=== PATIENT | female | born 1995 | race Caucasian/White ===

== ENCOUNTER 2019-08-16 15:04 | Outpatient (REF) | payer OTHER, SELFPAY ==
--- NOTE | 2019-08-16 13:30 | PAPFT_PTH ---
PATIENT: Willa Perry LOC: [facility] U#:[id number] AGE/SX: 24/F ROOM: RE08/16/[address]: JANAE Epstein : 1995 BED: DIS: 08/16/2019 SPEC #: [id number] RECD: 08/16/19 16:59 STATUS: KRISTIE REQ #: [id number] KALPESH: 08/16/19 13:[address]: Tita Chandra DEPT: [facility] Cytology RECD BY: Davida Barajas ENTERED: 08/16/19 16:59 SP TYPE: PAPFT SONIA DR: Khushboo Gordon Tissues: 1 - CX/ENDOCX FOR PAP SMEARS Procedures: PAP THIN PREP/[facility] Screening Comments: [id number]
== END 2019-08-16 15:24 ==
LOC: LBN 15:04
PROVIDERS: PCP Physician Assistant Medical; Visit Provider Nurse Practitioner Family
DX: Z12.4 Encounter for screening for malignant neoplasm of cervix (principal)
CPT/HCPCS: 88142

== ENCOUNTER 2021-03-03 15:18 | Outpatient (REF) | payer OTHER, SELFPAY ==
[2021-03-06 15:20] LABS: Source: Kidney
== END 2021-03-03 15:19 | disposition home or self-care (01) ==
LOC: NCHCN 15:18
PROVIDERS: PCP Physician Assistant Medical; Visit Provider Nurse Practitioner Family
DX: N20.0 Calculus of kidney (principal)
CPT/HCPCS: 82365

== ENCOUNTER 2022-10-26 08:53 | Outpatient (CLI) | payer OTHER, SELFPAY | END 2022-10-26 08:54 | disposition home or self-care (01) | LOC: ORDER INT 08:54 | PROVIDERS: PCP Physician Assistant Medical; Visit Provider Advanced Practice Midwife | DX: Z34.90 Encounter for supervision of normal pregnancy, unspecified, unspecified trimester (principal) ==

== ENCOUNTER 2022-11-16 02:23 | Outpatient (CLI) | payer OTHER, SELFPAY ==
[2022-11-16 15:26] LABS: Panorama Kit Sent via Fed Ex
[2022-11-16 15:45] LABS: Abs Immature Grans 0.03 10^3/uL (0.0-0.06); Absolute Basophil Count 0.05 10^3/uL (0.0-0.2); Absolute Eosinophil Count 0.06 10^3/uL (0.0-0.7); Absolute Lymphocyte Count 1.91 10^3/uL (1.2-3.4); Absolute Monocyte Count 0.29 10^3/uL (0.1-0.8); Absolute Neutrophil Count 6.86 10^3/uL (1.2-6.7); Basophils % 0.5; Eosinophils % 0.7; HCT 38.2 % (36.0-46.0); Immature Grans % 0.3; Lymphocytes % 20.8; MCH 30.9 pg (27.0-33.0); MCV 91 fL (80-95); MPV 9.5 fL (8.0-11.0); Monocytes % 3.2; Neutrophils % 74.5; Platelet Count 382 10^3/uL (130-400); RBC 4.21 10^6/uL (3.93-5.22); RDW 11.6 % (11.7-14.6); RDW-SD 38.5 fL
[2022-11-17 09:51] LABS: Hepatitis B Surface Ag Negative (Negative)
[2022-11-17 10:32] LABS: HIV-1/2 Ag & Ab Screen Negative (Negative)
[2022-11-17 10:40] LABS: Hepatitis C Ab w Rflx HCV PCR Negative (Negative)
[2022-11-17 11:05] LABS: Varicella IgG Antibody Negative (See Note)
[2022-11-17 11:10] LABS: Rubella IgG Ab (UVM) Positive (See Note)
[2022-11-18 16:11] LABS: Syphilis IgG w/Reflex Nonreactive (Nonreactive)
[2022-11-22 01:05] LABS: Specimen WB Whole Blood
[2022-11-30 12:30] LABS: Result Summary NEGATIVE; Specimen WB Whole Blood
== END 2022-11-16 02:24 | disposition home or self-care (01) ==
LOC: LBO 02:24
PROVIDERS: PCP Physician Assistant Medical; Visit Provider Advanced Practice Midwife
DX: Z34.91 Encounter for supervision of normal pregnancy, unspecified, first trimester (principal); Z36.89 Encounter for other specified antenatal screening; Z3A.11 11 weeks gestation of pregnancy
CPT/HCPCS: 36415; 81220; 81222; 81329; 86787; 86803; 86850; 86900; 86901; 87340; 87389; 85025; 86762; 86780

== ENCOUNTER 2022-11-16 14:56 | Outpatient (REF) | payer OTHER, SELFPAY ==
--- NOTE | 2022-11-16 14:00 | PAPFT_PTH ---
PATIENT: Willa Perry LOC: [facility] U#:[id number] AGE/SX: 27/F ROOM: RE11/16/[address]: Martina Pradhan CNM : 1995 BED: DIS: 11/16/2022 SPEC #: [id number] RECD: 11/16/22 17:09 STATUS: KRISTIE MONIQUE #: [id number] KALPESH: 11/16/22 14:[address]: Martina Pradhan DEPT: [facility] Cytology RECD BY: Davida Barajas ENTERED: 11/16/22 17:10 SP TYPE: PAPFT OTHR DR: Khushboo Gordon Tissues: 1 - CX/ENDOCX FOR PAP SMEARS Procedures: PAP THIN PREP/[facility] Screening HPV DNA PROBE Comments: [id number] (CHLAMYDIA/GC)
[2022-11-16 17:31] LABS: *AMPHETAMINES SCREEN URINE Negative (Negative); *BARBITURATES SCREEN URINE Negative (Negative); *BENZODIAZEPINES SCREEN URINE Negative (Negative); Cannabinoids THC Negative (Negative); Cocaine Screen,Urine Negative (Negative); METHADONE URINE SCREEN Negative (Negative); OPIATES URINE SCREEN Negative (Negative)
[2022-11-16 17:41] LABS: Tricyclic Antidepressants Negative (Negative)
[2022-11-17 13:43] LABS: Chlamydia Result Negative (Negative); GC Result Negative (Negative)
[2022-11-20 10:26] LABS: Buprenorphine Negative ng/mL (Cutoff: 5.0); Norbuprenorphine Negative ng/mL (Cutoff: 2.5)
== END 2022-11-16 14:57 | disposition home or self-care (01) ==
LOC: LBN 14:56
PROVIDERS: PCP Physician Assistant Medical; Visit Provider Advanced Practice Midwife
DX: Z34.91 Encounter for supervision of normal pregnancy, unspecified, first trimester (principal); Z11.3 Encounter for screening for infections with a predominantly sexual mode of transmission; Z12.4 Encounter for screening for malignant neoplasm of cervix; Z3A.11 11 weeks gestation of pregnancy; Z11.51 Encounter for screening for human papillomavirus (HPV)
CPT/HCPCS: 80307; 80348; 87491; 87591; 88142; 87086; 87624

== ENCOUNTER 2024-03-27 13:53 | Outpatient (REF) | payer OTHER, SELFPAY ==
--- OUTSIDE RECORDS SUMMARY | 2024-03-27 13:56 | XMS_ITS | Continuity of Care Document ---
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 Discharge Disposition: Home or Self Care Attending Physician: Rosy Armenta Referring Physician: Rosy Armenta Allergies, Adverse Reactions, Alerts No Known Medication Allergies Assessment and Plan Future Appointments Appointment Date:03/09/2023 12:00:00 PM Scheduled Provider:Toi Hilton MD Location:[facility] Appointment Type:OB Follow Up Functional Status 02/16/23 Other exposure to Infectious Disease Non e Medications 19 (Nationwide) oral tablet 0 Refill(s) Start Date: 02/15/23 Status: Ordered Vitamin D3 1000 intl units oral capsule 25 mcg = 1 cap, Oral, Daily, # 75 cap, 0 Refill(s) Start Date: 02/15/23 Status: Ordered Problem List Condition Confirmation Course Effective Dates Status Health St atus Informant Acne vulgaris Confirmed Active Back pain Confirmed Active Depression Confirmed Active 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 Dermatitis Confirmed Active DJD (degenerative joint disease) Confirmed Active Confirmed 08/25/22 Active Results Most recent to oldest [Reference Range]: 1 Protein Urine Dipstick Trace (02/16/23 2:17 PM) Glucose Urine Dipstick Negative (02/16/23 2:17 PM) Vital Signs Most recent to oldest [Reference Range]: 1 2 Blood Pressure [90-140/60-90 mmHg] 124/7 0mmHg (02/16/23 2:17 PM) Weight 67.1 kg (02/16/23 2:17 PM) 67.1 kg (02/16/23 2:17 PM) Weight Measured (lbs) 147.93 lb (02/16/23 2:17 PM) [place] Body Weight Calculated 51.476 kg (02/16/23 2:17 PM) Height 159 cm (02/16/23 2:17 PM) Height/Length Measured (inches) 62.6 inc h (02/16/23 2: PM) BSA Measured 1.72 m2 (02/16/23 2:17 PM) Body Mass Index 26.54 kg/m2 (02/16/23 2:17 PM) 26.54 kg/m2 (02/16/23 2:17 PM) Social History Social History Type Response Tobacco Former tobacco user Tobacco Use:. stopped smoking when she found out she was . per day. Sex Note * Deisy Ragsdale: PERFORM Event Display: OB Note Authored Date: [id number] Transcribed Labs Entered On: 02/16/2023 10:06 EDT Performed On: 02/16/2023 10:03 EDT by Deisy Ragsdale Transcribed Labs Blood Type, Transcribed : AB positive Rubella,Transcribed : Immune Rubella Date Performed : 11/17/2022 EST RPR, Transcribed : Negative RPR Date Performed : 11/18/2022 EST Varicella, Transcribed : Negative Varicella Date Performed : 11/17/2022 EST Chlamydia Date Performed : 11/16/2022 EST Gonorrhea Date Performed : 11/16/2022 EST Chlamydia, Transcribed : Negative Gonorrhea, Transcribed : Negative Genetic Testing Date Performed : 12/01/2022 EST Genetic Testing, Transcribed : Yes Genetic Testing, Results Text : Sample collected 13w,5 days. Negative for triploid,monosomy x, trisomy 21,18,and 13. sex female. Deisy Ragsdale - 02/16/2023 10:03 EDT Electronically Signed on 02/16/2023 10:03 AM Deisy Ragsdale * Deisy Ragsdale: PERFORM Event Display: OB Note Authored Date: [id number] Transcribed Labs Entered On: 02/15/2023 17:45 EDT Performed On: 02/15/2023 17:40 EDT by Deisy Ragsdale Transcribed Labs Blood Type, Transcribed : AB positive Rubella,Transcribed : Immune Rubella Date Performed : 11/17/2022 EST RPR, Transcribed : Negative RPR Date Performed : 11/18/2022 EST Varicella, Transcribed : Negative Varicella Date Performed : 11/17/2022 EST Chlamydia Date Performed : 12/03/2022 EST Gonorrhea Date Performed : 12/03/2022 EST Chlamydia, Transcribed : Negative Gonorrhea, Transcribed : Negative Deisy Ragsdale - 02/15/2023 17:40 EDT Electronically Signed on 02/15/2023 05:40 PM Deisy Ragsdale Physician Outpatient Note * Rosy Armenta: PERFORM Event Display: Office Clinic Note Physician Authored Date: [id number] OLIVE SOTELO :1995 Age:27 years Sex:Female Visit Date:02/16/2023 Primary Care Physician: ANGIE JOSEPH PA-C JOEY/EGA Gestational Age (EGA) and JOEY? * Note: EGA calculated as of 02/16/2023 ?? JOEY:??06/03/2023?EGA*:??24 weeks 5 days ?Type:??Authoritative?Method Date:??08/27/2022 ?Method:??Last Menstrual Period??(08/27/2022) ?Confirmation:??Confirmed ?Description:??-- ?Comments:??-- ?Entered by:??Deisy Ragsdale on 02/16/2023? Other JOEY Calculations for this : ?Method:??Ultrasound ?Method Date:??01/11/2023 ?JOEY:??06/03/2023 ?EGA (At Entry):??19 weeks 4 days ?Type:??Non-Authoritative ?Comments:??Performed at [facility] ?Entered by:??Rosy Armenta on 02/16/2023 Chief Complaint OB trnasfer, 24w, 4 days. Pt's only complint is that she is very constipated. sometimes can go as long as 6 days without going. History of Present Illness Patient presents as a??OB transfer. Most of??OB records received. Missing??some labs from PN??panel. ?? Physical Exam Vitals & Measurements BP:??124/70?? HT:??159??cm?? WT:??67.1??kg?? WT:??67.1??kg?? BMI:??26.54?? BMI:??26.54?? BSA:??1.72?? Risk Factors Risk Factors, Antepartum Current Preg: Other: Marginal cord insertion. [facility] recommended growth US at28-30 weeks and 34-36 weeks. (02/16/23) Risk Factors, Antepartum Current Preg: Other: EDS type 3 (02/16/23) Assessment/Plan 1.??Encounter for care in second trimester of first ??Z34.02 Oriented to practice. No lof/bleeding/ctx. Baby is active, having a girl! US at [facility] due to EDS type 3. Marginal cord insertion, inserting at the end of the placenta, at the fundus of uterus. [facility] recommended growth US 28-30 weeks and 34- 36 weeks. Labs at nh. Will call [facility] for PN panel and draw whatever was omitted with glucose/CBC at nh. Ordered: Urine Culture, Urine, Clean Catch, Routine collect, RT - Routine, 02/16/23 14:39:00 EDT, Once, Nurse collect, Encounter for care in second trimester of first ?? 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 Cards Exam and Notes ?? Exams and Notes ?? Date:??02/16/23 EGA:??24w5d Weight (lbs kg):??*147... Fundal Height (cm):??25 ? Blood Pressure (mmHg):??124/70 ? Cervix Exam (Dil cm/Eff %/Sta -):--/--/--?? Labor S/S:??None Urine Glucose:??Negative Urine Protein:??Trace Next Visit:??+3 weeks from 02/16/2023 Baby A?FHR:??155 ? Movement:??Present per patient ?Presentation:??-- ? Problem List/Past Medical History Ongoing Acne vulgaris Back pain Depression Dermatitis DJD (degenerative joint disease) Letitia-Danlos syndrome Historical No qualifying data Medications 19 (Nationwide) oral tablet Vitamin D3 1000 intl units oral capsule, 25 mcg= 1 cap, Oral, Daily Allergies No Known Medication Allergies Social History Alcohol Past, Beer, 1-2 times per month Electronic Cigarette/Vaping Electronic Cigarette Use: Never. 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 Home/Environment Lives with Significant other. Living situation: Home/Independent. Sexual Sexually active: Yes. Substance Use Never Tobacco Former tobacco user Tobacco Use:. stopped smoking when she found out she was . per day. PCM Transcribed Labs Blood Type, Transcribed: AB positive Chlamydia Date Performed: 11/16/22 Chlamydia, Transcribed: Negative Genetic Testing Date Performed: 12/01/22 Genetic Testing, Results Text: Sample collected 13w,5 days. Negative for triploid,monosomyx, trisomy 21,18,and 13. sex female. Genetic Testing, Transcribed: Yes Gonorrhea Date Performed: 11/16/22 Gonorrhea, Transcribed: Negative RPR Date Performed: 11/18/22 RPR, Transcribed: Negative Rubella Date Performed: 11/17/22 Rubella,Transcribed: Immune Electronically Signed on 02/16/23 03:16 PM Rosy Armenta Patient Care team information Care Team Personnel Name: JAKE SORIA, ANGIE Sotelo Position: No Access Member Role: Primary Care Physician Address: Address: [place] [address]- Care Team Related Persons Name: BOGDAN HUIZAR Address: [address] Name: BRITTANY SOTELO Address: [address] Name: BRITTANY SOTELO Address: [address]
--- OUTSIDE RECORDS SUMMARY | 2024-03-27 13:56 | XMS_ITS | Continuity of Care Document ---
Author Name Unknown Organization [facility] Address [address] [place] [address] Care Team Providers Care Carbon Cleaner Name Role Phone ANGIE JOSEPH PA-C Primary Care Physician Encounter [facility] [id number] Date(s): 06/07/23 - 06/07/[address] [address]- Encounter Diagnosis Post-term (Final) - 40 weeks gestation of (Final) - Discharge Disposition: Home or Self Care Attending Physician: Jt Hutchins Admitting Physician: Jt Hutchins Referring Physician: Jt Hutchins Allergies, Adverse Reactions, Alerts No Known Medication Allergies Assessment and Plan Future Scheduled Tests Laboratory* .GTT 3 HR OB 100gm 03/09/23 * .GTT 2 HR OB 100gm 03/09/23 * .GTT 1 HR OB 100gm 03/09/23 * .GTT Fasting OB 03/09/23 Immunizations Given and Recorded Vaccine Date Status Refusal Reason tetanus/diphth/pertuss (Tdap) adult/adol 03/09/23 Given Medications 19 (Nationwide) oral tablet 0 Refill(s) Start Date: 02/15/23 Status: Ordered Vitamin D3 1000 intl units oral capsule 25 mcg = 1 cap, Oral, Daily, # 75 cap, 0 Refill(s) Start Date: 02/15/23 Status: Ordered Problem List Condition Confirmation Course Effective Dates Status Health St atus Informant Acne vulgaris Confirmed Active Marginal insertion of umbilical cord affecting management of mother Confirmed Active Back pain Confirmed Active Depression Confirmed Active 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 Dermatitis Confirmed Active DJD (degenerative joint disease) Confirmed Active Post term Confirmed Active Confirmed 08/25/22 Active Encounter for care of primigravida in third trimester, antepartum Confirmed Active Vital Signs Most recent to oldest [Reference Range]: 1 Temperature Temporal Artery [36-38 Deg C ] 36.4 Deg C (06/07/23 11:21 AM) Temperature Temporal Artery (DegF) [97.3 -100 Deg F] 97.52 Deg F (06/07/23 11:21 AM) Heart Rate Monitored [60-100 bpm] 86 bpm (06/07/23 11:21 AM) Respiratory Rate [12-24 br/min] 16 br/mi n (06/07/23 11:21 AM) Blood Pressure [90-140/60-90 mmHg] 126/8 0mmHg (06/07/23 11:21 AM) Mean Arterial Pressure, Cuff [65-140 mmH g] 95 mmHg (06/07/23 11:21 AM) Blood Pressure Location Right arm (06/07/23 11:21 AM) Blood Pressure Method Automatic (06/07/23 11:21 AM) Social History Social History Type Response Smoking Status Smoking tobacco use: Former tobacco user;Never; Number used per day: stopped smoking when she found out she was .; entered on: 04/21/23 Sex Patient Care team information Care Team Personnel Name: ANGIE JOSEPH PA-C Position: No Access Member Role: Primary Care Physician Address: Address: [address] Care Team Related Persons Name: BOGDAN HUIZAR Address: Home [address] [place] [phone] [facility] Name: BRITTANY SOTELO Address: Home [address] [place] [phone] [facility] Name: BRITTANY SOTELO Address: Home [address] [place] [phone] [facility]
--- OUTSIDE RECORDS SUMMARY | 2024-03-27 13:56 | XMS_ITS | Continuity of Care Document ---
Author Name Unknown Organization [facility] Address [address] [place] [address] Care Team Providers Care Product Marketer Name Role Phone ANGIE JOSEPH PA-C Primary Care Physician Encounter [facility] [place] [id number] Date(s): 05/23/23 - 05/23/23 [facility] [address] [place], [place] [address] Encounter Diagnosis Encounter for care of primigravida in third trimester, antepartum (Discharge Diagnosis) - 05/23/23 Marginal insertion of umbilical cord affecting management of mother(Discharge Diagnosis) - 05/23/23 Letitia-Danlos syndrome(Discharge Diagnosis) - 05/23/23 Discharge Disposition: Home or Self Care Attending Physician: Jt Hutchins Allergies, Adverse Reactions, Alerts No Known Medication Allergies Assessment and Plan Future Appointments Appointment Date:05/30/2023 10:15:00 AM Scheduled Provider:Toi Hilton MD Location:[facility] Appointment Type:OB Follow Up Appointment Date:06/07/2023 10:30:00 AM Scheduled Provider:Jt Hutchins Location: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 Dermatitis Confirmed Active DJD (degenerative joint disease) Confirmed Active Confirmed 08/25/22 Active Encounter for care of primigravida in third trimester, antepartum Confirmed Active Results Most recent to oldest [Reference Range]: 1 Protein Urine Dipstick Negative (05/23/23 10:35 AM) Glucose Urine Dipstick Negative (05/23/23 10:35 AM) Urine Color Urine Dipstick Pale yellow (05/23/23 10:35 AM) Urine Appearance Urine Dipstick Clear (05/23/23 10:35 AM) Vital Signs Most recent to oldest [Reference Range]: 1 2 Blood Pressure [90-140/60-90 mmHg] 126/7 2mmHg (05/23/23 10:35 AM) Weight 80.3 kg (05/23/23 10:35 AM) Weight Measured (lbs) 177.031 lb (05/23/23 10:35 AM) [place] Body Weight Calculated 51.476 kg (05/23/23 10:35 AM) Pre- Weight 58.51 kg (05/23/23 10:35 AM) Cumulative Weight Gain 22 kg (05/23/23 10:35 AM) Height 159 cm (05/23/23 10:35 AM) Height/Length Measured (inches) 62.6 inc h (05/23/23 10:35 AM) BSA Measured 1.88 m2 (05/23/23 10:35 AM) Body Mass Index 31.76 kg/m2 (05/23/23 10:35 AM) 31.76 kg/m2 (05/23/23 10:35 AM) Social History Social History Type Response Smoking Status Smoking tobacco use: Former tobacco user;Never; Number used per day: stopped smoking when she found out she was .; entered on: 04/21/23 Sex Note * Florence Henning: PERFORM Event Display: OB Note Authored Date: [id number] Transcribed Labs Entered On: 05/22/2023 15:59 EDT Performed On: 05/22/2023 15:58 EDT by Florence Henning Transcribed Labs Blood Type, Transcribed : AB positive Rubella,Transcribed : Immune Rubella Date Performed : 11/16/2022 EST Hepatitis B, Transcribed : Negative Hepatitis B Date Performed : 03/09/2023 EDT Pap Smear, Transcribed : Normal Pap Smear Date Performed : 11/16/2022 EST HIV Antibodies, Transcribed : Negative RPR, Transcribed : Negative RPR Date Performed : 11/16/2022 EST Group B Strep, Transcribed : Negative GBS Date Performed : 05/09/2023 EDT Varicella, Transcribed : Negative Varicella Date Performed : 11/16/2022 EST Chlamydia Date Performed : 11/16/2022 EST Gonorrhea Date Performed : 11/16/2022 EST Chlamydia, Transcribed : Negative Gonorrhea, Transcribed : Negative ABS, Transcribed : Negative ABS Date Performed : 11/16/2022 EST 1 Hour Glucose Result : 136 mg/dL 1 Hour Glucose Date Performed : 03/09/2023 EDT Fasting Glucose of 3 Result : 92 mg/dL 3 Hour of 3 Glucose Result : 83 mg/dL 1 Hour of 3 Glucose Result : 128 mg/dL 3 Hour Glucose Date Performed : 03/21/2023 EDT 2 Hour of 3 Glucose Result : 91 mg/dL Other Transcribed Labs : urine culture done 05/03/2023 Genetic Testing Date Performed : 12/01/2022 EST Genetic Testing, Transcribed : Yes Genetic Testing, Results Text : Sample collected 13w,5 days. Negative for triploid,monosomy x, trisomy 21,18,and 13. sex female. Florence Henning - 05/22/2023 15:58 EDT Electronically Signed on 05/22/2023 03:58 PM Florence Henning Physician Outpatient Note * Jt Hutchins P: PERFORM Event Display: Office Clinic Note Physician Authored Date: [id number] OLIVE SOTELO :1995 Age:27 years Sex:Female Visit Date:05/23/2023 Primary Care Physician: ANGIE JOSEPH PA-C JOEY/EGA Gestational Age (EGA) and JOEY? * Note: EGA calculated as of 05/23/2023 ?? JOEY:??06/03/2023?EGA*:??38 weeks 3 days ?Type:??Authoritative?Method Date:??08/27/2022 ?Method:??Last Menstrual Period??(08/27/2022) ?Confirmation:??Confirmed ?Description:??-- ?Comments:??-- ?Entered by:??Deisy Ragsdale on 02/16/2023? Other JOEY Calculations for this : ?Method:??Ultrasound ?Method Date:??04/21/2023 ?JOEY:??06/04/2023 ?EGA (At Entry):??33 weeks 5 days ?Type:??Non-Authoritative ?Comments:??DANNY 10 EFW 2205 grams 32 percentile. Cord insertion 2 cm from placental edge ?Entered by:??Rosy Armenta on 04/21/2023 ?Method:??Ultrasound ?Method Date:??03/21/2023 ?JOEY:??06/02/2023 ?EGA (At Entry):??29 weeks 4 days ?Type:??Non-Authoritative ?Comments:??Vertex, DANNY 10, marginal cord-1.3 cm from placental periphery, 1420 g/38th percentile ?Entered by:??Toi Hilton MD on 03/21/2023 ?Method:??Ultrasound ?Method Date:??01/11/2023 ?JOEY:??06/03/2023 ?EGA (At Entry):??19 weeks 4 days ?Type:??Non-Authoritative ?Comments:??Performed at [facility] ?Entered by:??Rosy Armenta on 02/16/2023 Chief Complaint OB follow appointment, 38.3 weeks, ongoing cramping for previous two days, describes them as periodlike cramps both in lower abdomen/stomach and lower back Physical Exam Vitals & Measurements BP:??126/72?? HT:??159??cm?? WT:??80.3??kg?? BMI:??31.76?? BMI:??31.76?? BSA:??1.88?? Risk Factors Risk Factors, Antepartum Current Preg: Other: velamentous cord (05/16/23) Risk Factors, Antepartum Current Preg: Other: Marginal cord insertion. [facility] recommended growth US at28-30 weeks and 34-36 weeks. 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 ??Increased [place] contractions. ??No loss of fluid or bleeding.?? Reviewed signs of labor and when to call. Cards Exam and Notes ?? Exams and Notes ?? Date:??05/23/23 EGA:??38w3d Weight (lbs kg):??*177... Fundal Height (cm):??37 ? Blood Pressure (mmHg):??126/72 ? Cervix Exam (Dil cm/Eff %/Sta -):--/--/--?? Labor S/S:??None Urine Glucose:??Negative Urine Protein:??Negative Next Visit:??+1 weeks from 05/23/2023 Baby A?FHR:??145 ? Movement:??Present per patient ?Presentation:??Vertex ? Date:??05/16/23 EGA:??37w3d Weight (lbs kg):??*173... Fundal Height (cm):??36 ? Blood Pressure (mmHg):??132/68 ? Cervix Exam (Dil cm/Eff %/Sta -):--/--/--?? Labor S/S:?? Urine Glucose:??Negative Urine Protein:??Negative Next Visit:??+1 weeks from 05/16/2023 Baby A?FHR:??145 ? Movement:??Present per patient ?Presentation:??-- ? Date:??05/09/23 EGA:??36w3d Weight (lbs kg):??*172... Fundal Height (cm):??36 ? Blood Pressure (mmHg):??124/60 ? Cervix Exam (Dil cm/Eff %/Sta -):0/50%/-3?? Labor S/S:??None Urine Glucose:??Negative Urine Protein:??Negative Next Visit:??+1 weeks from 05/09/2023 Baby A?FHR:??147 ? Movement:??Present per patient ?Presentation:??Vertex ? Date:??05/03/23 EGA:??35w4d Weight (lbs kg):??*168... Fundal Height (cm):??35 ? Blood Pressure (mmHg):??116/60 ? Cervix Exam (Dil cm/Eff %/Sta -):--/--/--?? Labor S/S:??None Urine Glucose:??Negative Urine Protein:??Trace Next Visit:??+1 weeks from 05/03/2023 Baby A?FHR:??154 ? Movement:??Present per patient ?Presentation:??Vertex ? Date:??04/21/23 EGA:??33w6d Weight (lbs kg):??*166... Fundal Height (cm):??33 ? Blood Pressure (mmHg):??116/62 ? Cervix Exam (Dil cm/Eff %/Sta -):--/--/--?? Labor S/S:??None Urine Glucose:??Negative Urine Protein:??Negative Next Visit:??+2 weeks from 04/21/2023 Baby A?FHR:??150 ? Movement:??Present per patient ?Presentation:??Vertex ? Date:??04/06/23 EGA:??31w5d Weight (lbs kg):??*160... Fundal Height (cm):??30 ? Blood Pressure (mmHg):??100/60 ? Cervix Exam (Dil cm/Eff %/Sta -):--/--/--?? Labor S/S:??None Urine Glucose:?? Urine Protein:?? Next Visit:??+2 weeks from 04/06/2023 Baby A?FHR:??150 ? Movement:??Present per patient ?Presentation:??-- ? Date:??03/21/23 EGA:??29w3d Weight (lbs kg):??*154... Fundal Height (cm):??29 ? Blood Pressure (mmHg):??110/60 ? Cervix Exam (Dil cm/Eff %/Sta -):--/--/--?? Labor S/S:??None Urine Glucose:??10/12 (100 mg/dl) Urine Protein:??Trace Next Visit:??+2 weeks from 03/21/2023 Baby A?FHR:??140 ? Movement:??Present per patient ?Presentation:??Vertex ? Date:??03/09/23 EGA:??27w5d Weight (lbs kg):??*151... Fundal Height (cm):??28 ? Blood Pressure (mmHg):??124/64 ? Cervix Exam (Dil cm/Eff %/Sta -):--/--/--?? Labor S/S:?? Urine Glucose:??Negative Urine Protein:??Negative Next Visit:??+2 weeks from 03/09/2023 Baby A?FHR:??145 ? Movement:??Present per patient ?Presentation:??-- ? Date:??02/16/23 EGA:??24w5d Weight (lbs kg):??*147... Fundal Height (cm):??25 ? Blood Pressure (mmHg):??124/70 ? Cervix Exam (Dil cm/Eff %/Sta -):--/--/--?? Labor S/S:??None Urine Glucose:??Negative Urine Protein:??Trace Next Visit:??+3 weeks from 02/16/2023 Baby A?FHR:??155 ? Movement:??Present per patient ?Presentation:??-- ? Problem List/Past Medical History Ongoing Acne vulgaris Back pain Depression Dermatitis DJD (degenerative joint disease) Letitia-Danlos syndrome Encounter for care of primigravida in third trimester, antepartum Marginal insertion of umbilical cord affecting management of mother Historical No qualifying data Medications 19 ([employer]) oral tablet Vitamin D3 1000 intl units oral capsule, 25 mcg= 1 cap, Oral, Daily Allergies No Known Medication Allergies Social History Alcohol Past, Beer, 1-2 times per month Electronic Cigarette/Vaping Electronic Cigarette Use: Never. 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 Home/Environment Lives with Significant other. Living situation: Home/Independent. Sexual Sexually active: Yes. Substance Use Never Tobacco Former tobacco user Tobacco Use:. stopped smoking when she found out she was . per day. Never Smokeless Tobacco use:. Family History Alive and well: Mother, Father and Brother. SVT - Supraventricular tachycardia: Brother. Immunizations Vaccine Date Status tetanus/diphth/pertuss (Tdap) adult/adol 03/09/2023 Given PCM Transcribed Labs ABO/Rh Echo: AB POS Blood Type, Transcribed: AB positive Chlamydia Date Performed: 11/16/22 Chlamydia, Transcribed: Negative GBS Date Performed: 05/09/23 Genetic Testing Date Performed: 12/01/22 Genetic Testing, Results Text: Sample collected 13w,5 days. Negative for triploid,monosomyx, trisomy 21,18,and 13. sex female. Genetic Testing, Transcribed: Yes Gonorrhea Date Performed: 11/16/22 Gonorrhea, Transcribed: Negative Group B Strep, Transcribed: Negative Hep Bs Ag: Non Reactive1 Hepatitis B Date Performed: 03/09/23 Hepatitis B, Transcribed: Negative HIV Antibodies, Transcribed: Negative HIV Date Performed: 03/09/23 RPR Date Performed: 11/16/22 RPR, Transcribed: Negative Rubella Date Performed: 11/16/22 Rubella,Transcribed: Immune Electronically Signed on 05/23/23 10:57 AM Jt Hutchins Patient Care team information Care Team Personnel Name: ANGIE JOSEPH PA-C Position: No Access Member Role: Primary Care Physician Address: Address: [address] [address]- Care Team Related Persons Name: SREEDHARGEMA BOGDAN A Address: Home [address] [place] [address] [place] [phone] [facility] Name: BRITTANY SOTELO Address: Home [address] [place], [place] [id number] [facility] Name: BRITTANY SOTELO Address: [address] [place], [place] [id number] [facility]
--- OUTSIDE RECORDS SUMMARY | 2024-03-27 13:56 | XMS_ITS | Continuity of Care Document ---
Author Name Unknown Organization [facility] Address [address] [place] [address] Care Team Providers Care Cardroom Manager Name Role Phone ANGIE JOSEPH PA-C Primary Care Physician Encounter [facility] NBR [phone] Date(s): 07/05/23 - 07/05/23 [facility] [address], [place] [address] Encounter Diagnosis Encounter for visit(Discharge Diagnosis) - 07/05/23 Vacuum-assisted vaginal delivery(Discharge Diagnosis) - 07/05/23 Discharge Disposition: Home or Self Care Attending Physician: Jt Hutchins MD Allergies, Adverse Reactions, Alerts No Known Medication Allergies Assessment and Plan Future Appointments Future Scheduled Tests Laboratory* .GTT 3 HR OB 100gm 03/09/23 * .GTT 2 HR OB 100gm 03/09/23 * .GTT 1 HR OB 100gm 03/09/23 * .GTT Fasting OB 03/09/23 Immunizations Given and Recorded Vaccine Date Status Refusal Reason tetanus/diphth/pertuss (Tdap) adult/adol 03/09/23 Given Medications acetaminophen 325 mg oral tablet 650 mg = 2 tab, Oral, every 4 hr, PRN pain, mild, 0 Refill(s) Start Date: 06/15/23 Status: Ordered ibuprofen 600 mg oral tablet 600 mg = 1 tab, Oral, every 4 hr, PRN pain, mild, 0 Refill(s) Start Date: 06/15/23 Status: Ordered 19 (Nationwide) oral tablet 1 tab, Oral, Daily, 0 Refill(s) Start Date: 02/15/23 Status: Ordered Vitamin D3 1000 intl units oral capsule 25 mcg = 1 cap, Oral, Daily, 0 Refill(s) Start Date: 02/15/23 Status: Ordered Problem List Condition Confirmation Course Effective Dates Status Health St atus Informant Acne vulgaris Confirmed Active Marginal insertion of umbilical cord affecting management of mother Confirmed Active Back pain Confirmed Active Depression Confirmed Active 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 Dermatitis Confirmed Active DJD (degenerative joint disease) Confirmed Active Post term Confirmed Active Encounter for visit Confirmed Active Vacuum-assisted vaginal delivery Confirmed Active Vital Signs Most recent to oldest [Reference Range]: 1 Blood Pressure [90-140/60-90 mmHg] 114/5 8mmHg (07/05/23 2:47 PM) Weight 67.0 kg (07/05/23 2:47 PM) Weight Measured (lbs) 147.71 lb (07/05/23 2:47 PM) Social History Social History Type Response Smoking Status Smoking tobacco use: Former tobacco user;Never; Number used per day: stopped smoking when she found out she was .; entered on: 04/21/23 Sex Hospital Discharge Instructions Follow Up Care 06/20/2023 15:54:22 With:Jt Hutchins MD Address: [address] [place] [id number] When:Within 3 Week(s) Comments:6 weeks?? appointment summary Document * Event Display: Summary Document Authored Date: [id number] OLIVE SOTELO: 1995 Age: 27 Years OLIVE SOTELO: [birth year] Summary (Date of Report: 07/01/23) G 1 P 0 (0,0,0,0) Gestation: [place] LMP (from pt. history): -- JOEY: 06/03/2023 JOEY/EGA Method: Last Menstrual Period EGA: Delivered Gestation info at delivery: Baby A : 41 weeks 4 days OLIVE SOTELO : [birth year] Antepartum Note Date: 06/07/23 11:02 (40 weeks) By: Jt Hutchins MD BPP 05/10 Date: 05/30/23 10:36 (39 weeks) By: Toi Hilton MD Post dates mgmt reviewed Date: 05/16/23 10:22 (37 weeks) By: Toi Hilton MD GBS neg reviewed. Winding back with work. 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) Acne vulgaris (SNOMED CT: 818137505, Onset: --) Backache (SNOMED CT: 253048929, Onset: --) Osteoarthritis (SNOMED CT: 5623666360, Onset: --) 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 [facility] recommended growth US at 28-30 weeks and 34-36 weeks., Other: EDS type 3 Ethnic Screening Self, Baby's father: Genetic Disorders Screening Baby's Father - Negative, Baby's Mother - Negative: Waban's Chorea Baby's Mother - Negative: Maternal Metabolic Disorder, Recurrent Preg Loss/Stillbirth Baby's Mother - Negative, Baby's Father - Negative: Defect, Cystic Fibrosis, Down Syndrome, Hemophilia, Mental Retardation, Muscular Dystrophy, Neural Tube, Sickle Cell Disease, Ash Sachs, Thalassemia, Parish Disease, Congenital Heart Defect OLIVE SOTELO : [birth year] Gestational Age (EGA) and JOEY * Note: EGA calculated as of 07/01/2023 JOEY: 06/03/2023 EGA*: 41 weeks 4 days Type: Authoritative Method Date: 08/27/2022 Method: Last Menstrual Period (08/27/2022) Confirmation: Confirmed Description: -- Comments: -- Entered by: Deisy Ragsdale on 02/16/2023 Other JOEY Calculations for this : Method: Ultrasound Method Date: 04/21/2023 JOEY: 06/04/2023 EGA (At Entry): 33 weeks 5 days Type: Non-Authoritative Comments: DANNY 10 EFW 2205 grams 32 percentile. Cord insertion 2 cm from placental edge Entered by: Rosy Armenta APRN on 04/21/2023 Method: Ultrasound Method Date: 03/21/2023 JOEY: 06/02/2023 EGA (At Entry): 29 weeks 4 days Type: Non-Authoritative Comments: Vertex, DANNY 10, marginal cord-1.3 cm from placental periphery, 1420 g/38th percentile Entered by: Toi Hilton MD on 03/21/2023 Method: Ultrasound Method Date: 01/11/2023 JOEY: 06/03/2023 EGA (At Entry): 19 weeks 4 days Type: Non-Authoritative Comments: Performed at [facility] Entered by: Rosy Armenta APRN on 02/16/2023 OLIVE SOTELO: [birth year] Measurements Pre- Weight: 58.51 kg 06/07/23 (40 weeks) Recent Weight Measured: 80.500 kg (+22) 06/13/23 (41 weeks) Height/Length Measured: 159.000 cm 06/13/23 (41 weeks) Body Mass Index Measured: 31.840 kg/m2 06/13/23 (41 weeks) OLIVE SOTELO: [birth year] Exam and Notes Date EGA FunHt PTL S/S Cervix BP Weight Urine Baby cm Dil Eff(%) Sta mmHg lbs kg Gluc Prot FHR Activity Fet Pres 06/14/23 41w4d -- -- 10 100% +1 138/87 -- -- -- Baby A = 130 *Present pe... -- 06/13/23 41w4d -- -- 9 100% +1 125/58 *177... -- -- Baby A = 135 *Present pe... -- 06/07/23 40w4d 38 None 0 80% -3 126/80 *177... Negative Trace Baby A = 145 *Present pe... Vertex 05/30/23 39w3d 38 -- -- -- -- 134/70 *176... Negative Negative Baby A = 140 -- -- 05/23/23 38w3d 37 None -- -- -- 126/72 *177... Negative Negative Baby A = 145 *Present pe... Vertex 05/16/23 37w3d 36 -- -- -- -- 132/68 *173... Negative Negative Baby A = 145 *Present pe... -- 05/09/23 36w3d 36 None 0 50% -3 124/60 *172... Negative Negative Baby A = 147 *Present pe... Vertex 05/03/23 35w4d 35 None -- -- -- 116/60 *168... Negative Trace Baby A = 154 *Present pe... Vertex 04/21/23 33w6d 33 None -- -- -- 116/62 *166... Negative Negative Baby A = 150 *Present pe... Vertex 04/06/23 31w5d 30 None -- -- -- 100/60 *160... -- -- Baby A = 150 *Present pe... -- 03/21/23 29w3d 29 None -- -- -- 110/60 *154... */... Trace Baby A = 140 *Present pe... Vertex 03/09/23 27w6d 28 -- -- -- -- 124/64 *151... Negative Negative Baby A = 145 *Present pe... -- 02/16/23 24w5d 25 None -- -- -- 124/70 *147... Negative Trace Baby A = 155 *Present pe... -- Next Visit: +1 weeks from 06/07/2023 * Weight 06/13/2023 177.502(lbs) 80.500(kg) 06/07/2023 177.502(lbs) 80.5(kg) 05/30/2023 176.841(lbs) 80.2(kg) 05/23/2023 177.061(lbs) 80.3(kg) 05/16/2023 173.093(lbs) 78.5(kg) 05/09/2023 172.872(lbs) 78.4(kg) 05/03/2023 168.462(lbs) 76.4(kg) 04/21/2023 166.919(lbs) 75.7(kg) 04/06/2023 160.083(lbs) 72.6(kg) 03/21/2023 154.350(lbs) 70.0(kg) 03/09/2023 151.925(lbs) 68.9(kg) 02/16/2023 147.956(lbs) 67.1(kg) * Urine Glucose 03/21/202310/12 (100 mg/dl) * Activity 06/14/2023 Present per patient 06/14/2023 Present per patient 06/14/2023 Present per patient 06/14/2023 Present per patient 06/14/2023 Present per patient 06/14/2023 Present per patient 06/14/2023 Present per patient 06/14/2023 Present per patient 06/14/2023 Present per patient 06/14/2023 Present per patient 06/14/2023 Present per patient 06/14/2023 Present per patient 06/14/2023 Present per patient 06/13/2023 Present per patient 06/13/2023 Present per patient 06/13/2023 Present per patient 06/13/2023 Present per patient 06/13/2023 Present per patient 06/13/2023 Present per patient 06/13/2023 Present per patient 06/13/2023 Present per patient 06/13/2023 Present per patient 06/13/2023 Present per patient 06/13/2023 Present per patient 06/13/2023 Present per patient 06/13/2023 Present per patient 06/13/2023 Present per patient 06/13/2023 Present per patient 06/13/2023 Present per patient 06/13/2023 Present per patient 06/13/2023 Present per patient 06/07/2023 Present per patient 06/07/2023 Present per patient 05/23/2023 Present per patient 05/16/2023 Present per patient 05/09/2023 Present per patient 05/03/2023 Present per patient 04/21/2023 Present per patient 04/06/2023 Present per patient 03/21/2023 Present per patient 03/09/2023 Present per patient 02/16/2023 Present per patient OLIVE SOTELO : [birth year] Physical Exams Physical Exam Mental Status Level of Consciousness: Alert (06/15/23) Orientation Assessment: Oriented x 4 (06/15/23) Affect/Behavior: Appropriate, Calm, Cooperative (06/14/23) Distress: None (06/13/23) HEENT Mouth: Mouth appears normal (06/15/23) Throat: Throat appears normal (06/14/23) Cardiovascular Cardiovascular Symptoms: None (06/15/23) Nail Bed Color: Normal for ethnicity (06/15/23) Capillary Refill: 2 seconds or less (06/15/23) Skin Temperature, Upper Extremities: Warm (06/15/23) Skin Temperature, Lower Extremities: Warm (06/15/23) Heart Rhythm: Regular (06/15/23) Respiratory Respiratory Symptoms: None (06/15/23) Respirations: Unlabored, Quiet (06/15/23) Respiratory Pattern: Regular (06/15/23) Chest Motion: Symmetrical (06/14/23) Oxygen Therapy: Room air (06/15/23) SpO2: 97 % (06/13/23) Cough: None (06/15/23) Gastrointestinal GI Symptoms: None (06/15/23) Abdomen Description: Asymmetric (06/14/23) Abdomen Palpation: Non-Tender, Soft (06/15/23) Extremities Clonus: Not present (06/13/23) Edema Edema: Lower Extremities (06/13/23) Pretibial Bilateral Pretibial Edema: 1+ Trace (06/13/23) Ankle Bilateral Ankle Edema: 1+ Trace (06/13/23) Pedal Bilateral Pedal Edema: 1+ Trace (06/13/23) Reflexes Left Arm Reflex: 2+ (06/13/23) Right Arm Reflex: 2+ (06/13/23) Left Knee Reflex: 2+ (06/13/23) Right Knee Reflex: 2+ (06/13/23) Integumentary Skin Color General: Usual for ethnicity (06/15/23) Skin Color: Normal for ethnicity (06/14/23) Skin Description: [place] (06/13/23) Skin Temperature: Warm (06/15/23) Skin Turgor: Elastic (06/15/23) Skin Moisture General: Dry (06/15/23) Skin Integrity: Intact, no abnormalities (06/14/23) Mucous Membrane Color: [place] (06/15/23) Mucous Membrane Description: Moist, Intact (06/15/23) OLIVE SOTELO: [birth year] Blood Types and Anti-D Immune Globulin Blood Type and Screen Mother ABO/Rh: -- Mother Antibody Screen: -- Father of Baby ABO/Rh: -- Father of Baby Antibody Screen: -- Anti-D Immune Globulin Rho(D) Initial Status: -- Rho(D) 28 Week Status: -- Rho(D) Dates Given: -- OLIVE SOTELO : [birth year] Tests and Lab Results Results ending with 'TR' have been keyed in by the practice or interpreted manually. Result Date: Estimated weeks post onset will display next to actual result date. Test Result Date Ref Range Protein Urine Dipstick Trace 02/16/23 (24 weeks) Glucose Urine Dipstick Negative 02/16/23 (24 weeks) Urine Color Urine Dipstick Yellow 03/09/23 (27 weeks) Protein Urine Dipstick Negative 03/09/23 (27 weeks) Urine Appearance Urine Dipstick Clear 03/09/23 (27 weeks) Glucose Urine Dipstick Negative 03/09/23 (27 weeks) Platelets 275 K/mcL 03/09/23 (27 weeks) (130 - 400) MPV 9.4 fL 03/09/23 (27 weeks) (7.4 - 10.4) Slide Review Not Indicated 03/09/23 (27 weeks) Hgb (L) 11.4 g/dL 03/09/23 (27 weeks) (12.0 - 16.0) Hct (L) 34.9 % 03/09/23 (27 weeks) (37.0 - 47.0) MCV 95.1 fL 03/09/23 (27 weeks) (81.0 - 99.0) WBC 9.0 K/mcL 03/09/23 (27 weeks) (4.8 - 10.8) RBC (L) 3.67 Million/mcL 03/09/23 ( weeks) (4.20 - 5.40) RDW-CV 12.8 % 03/09/23 ( weeks) (11.5 - 14.5) MCHC 32.7 g/dL 03/09/23 ( weeks) (32.0 - 36.0) MCH (H) 31.1 pg 03/09/23 ( weeks) (27.0 - 31.0) Baso Absolute 0.0 K/mcL 03/09/23 ( weeks) (0.0 - 0.2) Basophil Auto 0.3 % 03/09/23 ( weeks) (0.0 - 0.8) [place] Auto 4.1 % 03/09/23 ( weeks) (1.7 - 9.3) Lymph Auto 21.8 % 03/09/23 ( weeks) (20.5 - 51.1) Neutro Auto 72.7 % 03/09/23 ( weeks) (42.2 - 75.2) Lymph Absolute 2.0 K/mcL 03/09/23 ( weeks) (1.2 - 3.4) Imm Gran Auto 0.3 % 03/09/23 ( weeks) (0.0 - 0.5) Imm Gran Absolute (N) 0.03 03/09/23 ( weeks) Eos, Auto 0.80 % 03/09/23 ( weeks) (0.00 - 3.00) Eos Absolute 0.1 K/mcL 03/09/23 ( weeks) (0.0 - 0.2) Neutro Absolute 6.5 K/mcL 03/09/23 ( weeks) (1.4 - 6.5) [place] Absolute 0.4 K/mcL 03/09/23 ( weeks) (0.1 - 0.6) Gluc 1hr OB (N) 136 03/09/23 (27 weeks) ABO/Rh Echo (U) AB POS 03/09/23 (27 weeks) Hep Bs Ag Non Reactive 03/09/23 (27 weeks) Non Reactive HIV 1/2 Ag/Ab Combo by CMIA Non Reactive 03/09/23 (27 weeks) Non Reactive Test Result Date Ref Range Gluc Fasting OB 92 03/21/23 (29 weeks) <=95 Gluc 1 Hr OB 100gm 128 03/21/23 (29 weeks) <=180 Gluc 2 Hr OB 100gm 91 03/21/23 (29 weeks) <=155 Gluc 3 Hr OB 100gm 83 03/21/23 (29 weeks) <=140 Protein Urine Dipstick Trace 03/21/23 (29 weeks) Glucose Urine Dipstick 1/10 (100 mg/dl) 03/21/23 (29 weeks) Urine Appearance Urine Dipstick Clear 04/21/23 (33 weeks) Urine Color Urine Dipstick Pale yellow 04/21/23 (33 weeks) Protein Urine Dipstick Negative 04/21/23 (33 weeks) Glucose Urine Dipstick Negative 04/21/23 (33 weeks) Leukocytes Urine Dipstick Trace 05/03/23 (35 weeks) Nitrite Urine Dipstick Negative 05/03/23 (35 weeks) Urobilinogen Urine Dipstick 0.2 mg/dl 05/03/23 (35 weeks) Protein Urine Dipstick Trace 05/03/23 (35 weeks) pH Urine Dipstick 8 05/03/23 (35 weeks) Blood Urine Dipstick Negative 05/03/23 (35 weeks) Specific [place] Urine Dipstick 1.010 05/03/23 (35 weeks) Ketones Urine Dipstick Negative 05/03/23 (35 weeks) Bilirubin Urine Dipstick Negative 05/03/23 (35 weeks) Glucose Urine Dipstick Negative 05/03/23 (35 weeks) Urine Color Urine Dipstick Yellow 05/03/23 (35 weeks) Urine Appearance Urine Dipstick Clear 05/03/23 (35 weeks) Protein Urine Dipstick Negative 05/09/23 (36 weeks) Urine Appearance Urine Dipstick Clear 05/09/23 (36 weeks) Urine Color Urine Dipstick Yellow 05/09/23 (36 weeks) Glucose Urine Dipstick Negative 05/09/23 (36 weeks) Group B Strep (GeneXpert) Negative 05/09/23 (36 weeks) Negative Protein Urine Dipstick Negative 05/16/23 (37 weeks) Urine Appearance Urine Dipstick Clear 05/16/23 (37 weeks) Urine Color Urine Dipstick Yellow 05/16/23 (37 weeks) Glucose Urine Dipstick Negative 05/16/23 (37 weeks) Urine Appearance Urine Dipstick Clear 05/23/23 (38 weeks) Glucose Urine Dipstick Negative 05/23/23 (38 weeks) Urine Color Urine Dipstick Pale yellow 05/23/23 (38 weeks) Protein Urine Dipstick Negative 05/23/23 (38 weeks) Glucose Urine Dipstick Negative 05/30/23 (39 weeks) Urine Color Urine Dipstick Yellow 05/30/23 (39 weeks) Protein Urine Dipstick Negative 05/30/23 (39 weeks) Urine Appearance Urine Dipstick Clear 05/30/23 (39 weeks) Urine Appearance Urine Dipstick Clear 06/07/23 (40 weeks) Protein Urine Dipstick Trace 06/07/23 (40 weeks) Glucose Urine Dipstick Negative 06/07/23 (40 weeks) Urine Color Urine Dipstick Yellow 06/07/23 (40 weeks) WBC (H) 14.6 K/mcL 06/13/23 (41 weeks) (4.8 - 10.8) RBC (L) 4.03 Million/mcL 06/13/23 (41 weeks) (4.20 - 5.40) RDW-CV (H) 14.7 % 06/13/23 (41 weeks) (11.5 - 14.5) Platelets 314 K/mcL 06/13/23 (41 weeks) (130 - 400) MPV 10.0 fL 06/13/23 (41 weeks) (7.4 - 10.4) Hgb (L) 11.8 g/dL 06/13/23 (41 weeks) (12.0 - 16.0) MCH 29.3 pg 06/13/23 (41 weeks) (27.0 - 31.0) Hct (L) 35.6 % 06/13/23 (41 weeks) (37.0 - 47.0) MCHC 33.1 g/dL 06/13/23 (41 weeks) (32.0 - 36.0) MCV 88.3 fL 06/13/23 (41 weeks) (81.0 - 99.0) [place] Absolute 0.6 K/mcL 06/13/23 (41 weeks) (0.1 - 0.6) Eos Absolute 0.0 K/mcL 06/13/23 (41 weeks) (0.0 - 0.2) Neutro Absolute (H) 11.9 K/mcL 06/13/23 (41 weeks) (1.4 - 6.5) Imm Gran Absolute (N) 0.07 06/13/23 (41 weeks) Lymph Absolute 1.9 K/mcL 06/13/23 (41 weeks) (1.2 - 3.4) Neutro Auto (H) 81.5 % 06/13/23 (41 weeks) (42.2 - 75.2) Eos, Auto 0.30 % 06/13/23 (41 weeks) (0.00 - 3.00) Baso Absolute 0.0 K/mcL 06/13/23 (41 weeks) (0.0 - 0.2) Basophil Auto 0.3 % 06/13/23 (41 weeks) (0.0 - 0.8) [place] Auto 4.2 % 06/13/23 (41 weeks) (1.7 - 9.3) Lymph Auto (L) 13.2 % 06/13/23 (41 weeks) (20.5 - 51.1) Imm Gran Auto 0.5 % 06/13/23 (41 weeks) (0.0 - 0.5) OLIVE SOTELO: [birth year] Actions No Actions have been documented. OLIVE SOTELO DOB: [birth year] Situational Awareness No comments have been documented. OLIVE SOTELO DOB: [birth year] Allergies (Active and Proposed Allergies Only) No Known Medication Allergies (Severity: Unknown severity, Onset: Unknown) OLIVE SOTELO DOB: [birth year] Medications Prescriptions and Home Medications Currently Active or Taking acetaminophen 325 mg oral tablet (Historically recorded) SI mg = 2 tab, Oral, every 4 hr, PRN: pain, mild, 0 Refill(s) Ordered: 06/15/23 Provider: Jt Hutchins MD ibuprofen 600 mg oral tablet (Historically recorded) SI mg = 1 tab, Oral, every 4 hr, PRN: pain, mild, 0 Refill(s) Ordered: 06/15/23 Provider: Jt Hutchins MD 19 (Nationwide) oral tablet (Historically recorded) SI tab, Oral, Daily, 0 Refill(s) Ordered: 02/15/23 Provider: -- Vitamin D3 1000 intl units oral capsule (Historically recorded) SI mcg = 1 cap, Oral, Daily, 0 Refill(s) Ordered: 02/15/23 Provider: -- Inactive or Suspended (Prescriptions and documented medications since 05/25/22) No medications have been recorded Medication Administrations In-Office/Hospital (All in-office/hospital administrated medications ordered since 05/25/22) acetaminophen 650 mg = 2 tab, N/A, Once Status: Completed Ordered: 06/14/23 Provider: Bita Generated acetaminophen (Acetaminophen 325 mg Tab [LTTL]) 650 mg = 2 tab, Oral, Once Status: Completed Ordered: 06/14/23 Provider: Jt Hutchins MD Adacel (Tdap) (tetanus/diphth/pertuss (Tdap) adult/adol) 0.5 mL, IM, Once Status: Completed Ordered: 03/09/23 Provider: Toi Hilton MD benzocaine-menthol topical 1 lillian, N/A, Once Status: Completed Ordered: 06/14/23 Provider: Bita Generated ibuprofen (Ibuprofen 600 mg Tab [LTTL]) 600 mg = 1 tab, Oral, Once Status: Completed Ordered: 06/14/23 Provider: Jt Hutchins MD ibuprofen 600 mg = 1 tab, N/A, Once Status: Completed Ordered: 06/14/23 Provider: Bita Generated lidocaine (Lidocaine 1% Inj 20 ml Vial [LTTL]) 20 mL, Subcutaneous, Once Status: Completed Ordered: 06/14/23 Provider: Jt Hutchins MD miSOPROStol (miSOPROStol 200 mcg Tab [LTTL]) 200 mcg = 1 tab, OK, Once Status: Completed Ordered: 06/14/23 Provider: Jt Hutchins MD miSOPROStol 1,000 mcg = 5 tab, N/A, Once Status: Completed Ordered: 06/13/23 Provider: Bita Generated oxytocin (oxytocin 10 units/mL Inj 1ml Vial [LTTL]) 10 units = 1 mL, IM, Once Status: Completed Ordered: 06/14/23 Provider: Jt Hutchins MD oxytocin 10 units = 1 mL, N/A, Once Status: Completed Ordered: 06/13/23 Provider: DomainUser, Generated oxytocin 10 units = 1 mL, N/A, Once Status: Completed Ordered: 06/14/23 Provider: DomainUser, Generated ropivacaine 0.2% (ropivacaine) 200 mg = 100 mL, N/A, Once Status: Completed Ordered: 06/13/23 Provider: DomainUser, Generated tranexamic acid 1,000 mg = 10 mL, 330 mL/hr, IV Piggyback, Once Status: Completed Ordered: 06/14/23 Provider: Jt Hutchins MD tranexamic acid 1,000 mg = 100 mL, N/A, Once Status: Completed Ordered: 06/14/23 Provider: GallitoUser, Generated naloxone (Naloxone 0.4 mg/mL Inj 1ml Vial [LTTL]) 0.1 mg = 0.25 mL, IV Push, every 5 min, PRN: other (see comment) Status: Voided Ordered: 06/14/23 Provider: Jt Hutchins MD acetaminophen (Acetaminophen 325 mg Tab [LTTL]) 650 mg = 2 tab, Oral, every 4 hr, PRN: pain, mild Status: Discontinued Ordered: 06/14/23 Provider: Jt Hutchins MD ePHEDrine 50 mg/mL injectable solution (ePHEDrine 50 mg/mL Inj Ana [LTTL]) 5 mg = 0.1 mL, IV Push, every 5 min, PRN: other (see comment) Status: Discontinued Ordered: 06/13/23 Provider: Brendon Bridges ibuprofen (Ibuprofen 600 mg Tab [LTTL]) 600 mg = 1 tab, Oral, every 4 hr, PRN: pain, mild Status: Discontinued Ordered: 06/14/23 Provider: Jt Hutchins MD miSOPROStol (miSOPROStol 25 mcg (Quarter) Tab [LTTL]) 25 mcg = 0.25 tab, VAG, every 3 hr, PRN: other (see comment) Status: Discontinued Ordered: 06/13/23 Provider: Jt Hutchins MD miSOPROStol (miSOPROStol 50 mcg (Half) Tab [LTTL]) 50 mcg = 0.5 tab, VAG, every 3 hr, PRN: other (see comment) Status: Discontinued Ordered: 06/13/23 Provider: Jt Hutchins MD oxytocin IV additive 30 units + LR Diluent 500 mL (oxytocin 30 units + Lactated Ringers 500 mL) Titrate Per Protocol, IV Status: Discontinued Ordered: 06/13/23 Provider: Jt Hutchins MD phenylephrine 100 mcg/mL intravenous solution (Phenylephrine 0.1 mg/mL Inj Syringe 10 mL [LTTL]) 100 mcg = 1 mL, IV Push, every 5 min, PRN: other (see comment) Status: Discontinued Ordered: 06/13/23 Provider: Brendon Bridges ropivacaine 0.2% IV additive 200 mg + Premix Diluent 100 mL (ropivacaine 0.2% 200 mg + Premix Diluent 100 mL) 10 mL/hr, Epidural Status: Discontinued Ordered: 06/13/23 Provider: Brendon Bridges OLIVE SOTELO: [birth year] Immunizations tetanus/diphth/pertuss (Tdap) adult/adol 03/09/23 (25 weeks) OLIVE SOTELO: [birth year] Menstrual History Last Recorded Menstrual Period: -- Last Menstrual Period Description: -- Menarche Onset: -- Menarche Frequency: -- Menarche Length: -- Date of Menses Prior to LMP: -- On Hormonal Contracept within 2 months of LMP: -- Date of Home Test: -- Comments: -- OLIVE SOTELO : [birth year] History (0,0,0,0) No previous pregnancies history have been recorded OLIVE SOTELO : [birth year] Medical History Past Medical History No active past medical history has been recorded Family History Father (Kemar, Alive, Age: 53 Years) Alive and well Mother (Baylee, Alive, Age: 52 Years) Alive and well Brother (Alonso, Alive, Age: 27 Years) Alive and well SVT - Supraventricular tachycardia Procedure or Surgical History Drainage of Amniotic Fluid, Therapeutic from Products of Conception, Via Natural or Artificial Opening Age: 27 Years Date: 06/13/2023 Extraction of Products of Conception, Vacuum, Via Natural or Artificial Opening Age: 27 Years Date: 06/13/2023 Introduction of Hormone into Female Reproductive, Via Natural or Artificial Opening Age: 27 Years Date: 06/13/2023 Monitoring of Products of Conception, Cardiac Rate, External Approach Age: 27 Years Date: 06/13/2023 Repair Perineum Muscle, Open Approach Age: 27 Years Date: 06/13/2023 OLIVE SOTELO: 89 Social & Psychosocial History Social History Alcohol Past, Beer, 1-2 times per month Employment/School 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 Home/Environment Lives with Significant other. Living situation: Home/Independent. Sexual Sexually active: Yes. Substance Abuse Never Tobacco Former tobacco user Tobacco Use:. stopped smoking when she found out she was . per day. Never Smokeless Tobacco use:. Electronic Cigarette/Vaping Electronic Cigarette Use: Never. Psychosocial History No active psychosocial history has been recorded OLIVE SOTELO: [birth year] Infection History Infection history negative or not recorded OLIVE SOTELO DOB: [birth year] Anesthesia and Transfusions Prior Anesthesia or Transfusion Received: No prior anesthesia, No prior transfusion Prior Anesthesia Reaction(s): -- Prior Transfusion Reaction(s): -- Blood Transfusion Acceptable to Patient: -- OLIVE SOTELO DOB: [birth year] Plan and Patient Requests Desired Delivery Location: -- Education: -- Written Plan: -- Written Plan Location: -- Support Person/As400 Operator Relationship to Pt: -- Oral Intake OB: -- Labor Preferences: -- Non-Medicinal Pain Relief: -- Anesthesia/Pain Medication During Labor: -- Delivery Plan: -- Infant Feeding: -- Circumcision: -- Baby For Adoption: -- Patient Requests: -- Father of the Baby's Name: -- Meat Team Member Selected: -- Surrogate : -- Support Person's Name: -- OLIVE SOTELO : 89 Education Educational Materials/Leaflets Provided Title/Topic Date Provided Arnav [facility] - Vaginal or Delivery Post Discharge Instructions 06/15/23 OLIVE SOTELO : 89 Registration and Information Race: White Ethnicity: Not , , or Citizen Of The [place] Origin Marital Status: Single Language(s): Maldivian Confucianist Preference(s): None/No Preference Occupation/Education: Address, Phone, and Health Plans Home Address: [address] [place] [phone] Phone: --, , -- Health Plans: 1 - SELF PAY Member/Group: -- Deductible: $ -- Type: Self Pay Address: [address] [address], [place] [address] Phone: -- 2 - [employer] Member/Group: [id number] Deductible: $ -- Type: Commercial Address: [address] [address], [place], [place] [id number] 3 - [facility] Member/Group: [id number] Deductible: $ -- Type: Commercial Address: [address] [address], [place], [place] [id number] 4 - SELF PAY Member/Group: -- Deductible: $ -- Type: Self Pay Address: [address] [address], [place] [address] Phone: -- General Information OB Provider(s) Information: Not explicitly recorded. May be noted in encounter section below. See below for detailed information for all visits and information. Delivery Center/Hospital Information: -- Provider Information: -- Referring Provider Information: ANGIE JOSEPH PA-C Primary Provider Information: ANGIE JOSEPH PA-C /Partner Information: -- -- Support Person Information: -- Planned/Unplanned : -- Date Consent Signed for Tubal Ligation: -- Date Record Sent to Hospital: -- OLIVE SOTELO : 89 Visits and Encounters (Known encounters since 08/25/2022. May include lab encounters.) Date Location Provider Type Medical Service 07/28/2023 [facility] Jt Hutchins MD Clinic [facility] 07/05/2023 [facility] Jt Hutchins MD Clinic [facility] 06/13/2023 Nadine Hutchins MD Inpatient Inpatient 06/07/2023 A Jt Hutchins MD Outpatient NST 06/07/2023 T1 Jt Hutchins MD Clinic Clinic 05/30/2023 2 Toi Hilton MD Clinic Clinic 05/23/2023 T1 Jt Hutchins MD Clinic Clinic 05/16/2023 1 Toi Hilton MD Clinic Clinic 05/09/2023 [facility] Jt Hutchins, Outpatient Lab 05/09/2023 [facility]- Jt Hutchins MD Clinic Clinic 05/03/2023 [facility] Jt Hutchins MD Outpatient Lab 05/03/2023 5 Jt Hutchins MD Clinic Clinic 04/21/2023 [facility]Diagnost[facility]G Jose Curry MD Outpatient 04/21/2023 2 Rosy Armenta, PIERCING ARTIST Clinic Clinic 04/18/2023 [facility]- -- Clinic [facility] 04/06/2023 [facility]-ENT -- Between Visit -- 04/06/2023 4 Jose Curry MD Clinic Clinic 03/21/2023 2 Rosy Armenta, [facility] Clinic Clinic 03/21/2023 [facility] Toi Hilton MD Outpatient 03/21/2023 [facility]Lab Rosy Armneta, [facility] Outpatient Lab 03/09/2023 [facility]- -- Between Visit -- 03/09/2023 [facility]- -- Between Visit -- 03/09/2023 [facility] Rosy Armenta, [facility] Outpatient Lab 03/09/2023 1 Toi Hilton MD Clinic Clinic 03/09/2023 [facility]- -- Between Visit -- 02/16/2023 [facility] Rosy Armenta, [facility] Outpatient Lab 02/16/2023 3 Rosy Armenta, [facility] OLIVE SOTELO : [birth year] Visit / Encounter Location Information The following information represents known location and contact information for locations visitedduring [facility] Ambulatory Clinics Business Address: [address] [place] [address] Phone:[phone] (Cytosorbents) [facility] Business Address: [address] [place] [address] Phone: No phone numbers found on file for location OLIVE SOTELO : [birth year] Visit Diagnosis (Note: All diagnoses documented since 08/25/2022) 06/13/23 - 41 weeks gestation of (ICD-10-CM: Z3A.41, Date: ) 06/13/23 - Velamentous insertion of umbilical cord, third trimester (ICD-10-CM: O43.123, Date: ) 06/13/23 - Second degree perineal laceration during delivery (ICD-10-CM: O70.1, Date: ) 06/13/23 - Other specified complications of labor and delivery (ICD-10-CM: O75.89, Date: ) 06/13/23 - Single live (ICD-10-CM: Z37.0, Date: ) 06/13/23 - Letitia-Danlos syndrome, 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, Date: ) 06/13/23 - Post-term (ICD-10-CM: O48.0, Date: ) 06/13/23 - Encounter for supervision of normal , unspecified, third trimester (ICD-10-CM: Z34.93, Date: ) 06/13/23 - Maternal exhaustion complicating labor and delivery (ICD-10-CM: O75.81, Date: ) 06/13/23 - Personal history of nicotine dependence (ICD-10-CM: Z87.891, Date: ) 06/13/23 - Malformation of placenta, unspecified, third trimester (ICD-10-CM: O43.103, Date: 06/13/23) 06/13/23 - Outcome of delivery, unspecified (ICD-10-CM: Z37.9, Date: 06/14/23) 06/13/23 - Post-term (ICD-10-CM: O48.0, Date: 06/13/23) 06/13/23 - Letitia-Danlos syndrome, 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, Date: 06/13/23) 06/07/23 - Post-term (ICD-10-CM: O48.0, Date: 06/07/23) 06/07/23 - Letitia-Danlos syndrome, 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, Date: 06/09/23) 06/07/23 - Malformation of placenta, unspecified, third trimester (ICD-10-CM: O43.103, Date: 06/09/23) 06/07/23 - Post-term (ICD-10-CM: O48.0, Date: ) 06/07/23 - 40 weeks gestation of (ICD-10-CM: Z3A.40, Date: ) 06/07/23 - Post-term (ICD-10-CM: O48.0, Date: ) 06/07/23 - Post-term (ICD-10-CM: O48.0, Date: ) 06/07/23 - Post-term (ICD-10-CM: O48.0, Date: 06/07/23) 06/07/23 - Malformation of placenta, unspecified, third trimester (ICD-10-CM: O43.103, Date: 06/07/23) 06/07/23 - Letitia-Danlos syndrome, 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, Date: 06/07/23) 06/07/23 - Encounter for supervision of normal first , third trimester (ICD-10-CM: Z34.03,Date: 06/07/23) 05/30/23 - Encounter for supervision of normal first , third trimester (ICD-10-CM: Z34.03,Date: 05/30/23) 05/23/23 - Letitia-Danlos syndrome, 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, Date: 05/23/23) 05/23/23 - Other malformation of placenta, unspecified trimester (ICD-10-CM: O43.199, Date: 05/23/23) 05/23/23 - Encounter for supervision of normal first , third trimester (ICD-10-CM: Z34.03,Date: 05/23/23) 05/16/23 - Encounter for supervision of normal first , third trimester (ICD-10-CM: Z34.03,Date: 05/16/23) 05/09/23 - Encounter for supervision of normal first , third trimester (ICD-10-CM: Z34.03,Date: ) 05/09/23 - Encounter for supervision of normal first , third trimester (ICD-10-CM: Z34.03,Date: ) 05/09/23 - Encounter for supervision of normal first , third trimester (ICD-10-CM: Z34.03,Date: 05/09/23) 05/09/23 - Other malformation of placenta, unspecified trimester (ICD-10-CM: O43.199, Date: 05/09/23) 05/09/23 - Encounter for supervision of normal first , third trimester (ICD-10-CM: Z34.03,Date: 05/09/23) 05/03/23 - Encounter for supervision of normal first , third trimester (ICD-10-CM: Z34.03,Date: ) 05/03/23 - Encounter for supervision of normal first , third trimester (ICD-10-CM: Z34.03,Date: ) 05/03/23 - Encounter for supervision of normal first , third trimester (ICD-10-CM: Z34.03,Date: 05/03/23) 05/03/23 - Other malformation of placenta, third trimester (ICD-10-CM: O43.193, Date: ) 05/03/23 - 35 weeks gestation of (ICD-10-CM: Z3A.35, Date: ) 05/03/23 - Letitia-Danlos syndrome, 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, Date: ) 05/03/23 - Letitia-Danlos syndrome, 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, Date: 05/03/23) 05/03/23 - Other malformation of placenta, unspecified trimester (ICD-10-CM: O43.199, Date: 05/03/23) 05/03/23 - Encounter for supervision of normal first , third trimester (ICD-10-CM: Z34.03,Date: 05/03/23) 04/21/23 - Other malformation of placenta, unspecified trimester (ICD-10-CM: O43.199, Date: ) 04/21/23 - Other malformation of placenta, unspecified trimester (ICD-10-CM: O43.199, Date: ) 04/21/23 - Other malformation of placenta, unspecified trimester (ICD-10-CM: O43.199, Date: ) 04/21/23 - Other malformation of placenta, third trimester (ICD-10-CM: O43.193, Date: ) 04/21/23 - 33 weeks gestation of (ICD-10-CM: Z3A.33, Date: ) 04/21/23 - Other malformation of placenta, unspecified trimester (ICD-10-CM: O43.199, Date: 04/21/23) 04/21/23 - Encounter for supervision of normal first , third trimester (ICD-10-CM: Z34.03,Date: 04/21/23) 04/06/23 - Other malformation of placenta, third trimester (ICD-10-CM: O43.193, Date: ) 04/06/23 - 31 weeks gestation of (ICD-10-CM: Z3A.31, Date: ) 04/06/23 - Other malformation of placenta, unspecified trimester (ICD-10-CM: O43.199, Date: 04/06/23) 03/21/23 - Encounter for supervision of normal first , third trimester (ICD-10-CM: Z34.03,Date: ) 03/21/23 - 29 weeks gestation of (ICD-10-CM: Z3A.29, Date: ) 03/21/23 - Other malformation of placenta, unspecified trimester (ICD-10-CM: O43.199, Date: 03/21/23) 03/21/23 - Encounter for supervision of normal first , third trimester (ICD-10-CM: Z34.03,Date: 03/21/23) 03/21/23 - Other malformation of placenta, unspecified trimester (ICD-10-CM: O43.199, Date: ) 03/21/23 - Other malformation of placenta, unspecified trimester (ICD-10-CM: O43.199, Date: ) 03/21/23 - Encounter for supervision of normal , unspecified, third trimester (ICD-10-CM: Z34.93, Date: ) 03/21/23 - Encounter for supervision of normal , unspecified, third trimester (ICD-10-CM: Z34.93, Date: ) 03/21/23 - Encounter for supervision of normal , unspecified, third trimester (ICD-10-CM: Z34.93, Date: 03/21/23) 03/21/23 - Encounter for supervision of normal , unspecified, third trimester (ICD-10-CM: Z34.93, Date: 03/21/23) 03/21/23 - Encounter for supervision of normal , unspecified, third trimester (ICD-10-CM: Z34.93, Date: 03/21/23) 03/21/23 - Encounter for supervision of normal , unspecified, third trimester (ICD-10-CM: Z34.93, Date: 03/21/23) 03/09/23 - Encounter for supervision of normal first , second trimester (ICD-10-CM: Z34.02, Date: ) 03/09/23 - Encounter for supervision of normal first , second trimester (ICD-10-CM: Z34.02, Date: ) 03/09/23 - Encounter for supervision of normal first , second trimester (ICD-10-CM: Z34.02, Date: 03/09/23) 03/09/23 - Encounter for supervision of normal first , second trimester (ICD-10-CM: Z34.02, Date: 03/09/23) 03/09/23 - Encounter for supervision of normal first , second trimester (ICD-10-CM: Z34.02, Date: 03/09/23) 03/09/23 - Encounter for supervision of normal first , second trimester (ICD-10-CM: Z34.02, Date: 03/09/23) 03/09/23 - Encounter for supervision of normal first , second trimester (ICD-10-CM: Z34.02, Date: 03/09/23) 03/09/23 - Other malformation of placenta, third trimester (ICD-10-CM: O43.193, Date: ) 03/09/23 - 27 weeks gestation of (ICD-10-CM: Z3A.27, Date: ) 03/09/23 - Encounter for immunization (ICD-10-CM: Z23, Date: 03/09/23) 03/09/23 - Other malformation of placenta, unspecified trimester (ICD-10-CM: O43.199, Date: 03/09/23) 03/09/23 - Encounter for supervision of normal first , second trimester (ICD-10-CM: Z34.02, Date: 03/09/23) 02/16/23 - Procedure and treatment not carried out, unspecified reason (ICD-10-CM: Z53.9, Date: ) 02/16/23 - Procedure and treatment not carried out, unspecified reason (ICD-10-CM: Z53.9, Date: ) 02/16/23 - Encounter for supervision of normal first , second trimester (ICD-10-CM: Z34.02, Date: 02/16/23) 02/16/23 - Encounter for supervision of normal first , second trimester (ICD-10-CM: Z34.02, Date: ) 02/16/23 - 24 weeks gestation of (ICD-10-CM: Z3A.24, Date: ) 02/16/23 - Letitia-Danlos syndrome, 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, Date: ) 02/16/23 - Letitia-Danlos syndrome, 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, Date: 02/16/23) 02/16/23 - Encounter for supervision of normal first , second trimester (ICD-10-CM: Z34.02, Date: 02/16/23) 10/03/99 - Encounter for supervision of normal , unspecified, third trimester (ICD-10-CM: Z34.93, Date: 03/18/23) 10/03/99 - Encounter for supervision of normal first , second trimester (ICD-10-CM: Z34.02, Date: 10/03/99) OLIVE SOTELO : 89 Delivery Summary Baby A Membrane Status Information ROM Date/Time: 06/13/23 23:47:00 Amniotic Fluid Color/Description: Clear Premature Rupture of Membranes: No Prolonged Rupture of Membranes: No Labor Information Labor Onset Methods: Elective induction Induction Methods: Artificial rupture of membranes, Misoprostol Precipitous Labor: No Prolonged Labor: No Monitoring FHR Monitoring Method: Doppler ultrasound Delivery Information Delivery Type: Vaginal, vacuum assist Delivery of Head Date/Time: 06/14/23 03:16:00 Date/Time of : 06/14/23 03:17:00 Placenta Delivery Date/Time: 06/14/23 03:23:00 Placenta Delivery Method: Spontaneous Placenta to Pathology: No Cord Blood Banking: No Cord Blood Sent to Lab: Yes Vacuum Number of Attempts: 4 Vacuum Number of Cap Detachments: 0 Vacuum Total Pressure: 50 mmHg Vacuum Type: Manual pump by provider Maternal Delivery Complications: None Delivery Physician: Jt Hutchins Attending Physician: Jt Hutchins Information Umbilical Cord Description: 3 vessel cord Infant Data Gender: Female Weight: 4.140 kg Score 1 Minute: 7 Score 5 Minute: 8 Note: Items documented with '--' had no clinical data which qualified at time of report creation END OF REPORT Physician Outpatient Note * Jt Hutchins MD: PERFORM Event Display: Office Clinic Note Physician Authored Date: [id number] OLIVE SOTELO :1995 Age:27 years Sex:Female Visit Date:07/05/2023 Primary Care Physician: ANGIE JOSEPH PA-C Chief Complaint Post appointment, vacuum assisted vaginal delivery 06/14/2023, no concerns, lochial flow hasdiminished to just occasional spotting, would like Nuva Ring for control, breast feeding and supplementing w/formula History of Present Illness 27yo 001, The patient is here today for a appointment. ??She had a Vacuum Assisted Vaginal Delivery??on 06/14/2023??at 41-4/7 weeks. ??Her labor was induced??due to Post dates.?? 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 She had a second-degree perineal laceration repaired at the time of delivery. ?? Since delivery,??she has been doing well. ??She is??using??a breast pump and supplementing with formula.?? The baby is sleeping well.?? Her moods and emotions have been good, and there has been plenty of help at home.?? Her lochia flow??is tapering but has not stopped.?? She does not have problems with??her??sutures.?? She would like to use the NuvaRing for control. Physical Exam Vitals & Measurements BP:??114/58?? WT:??67.0??kg?? GENERAL: Cooperative, alert, no acute distress. HEENT: Head is normocephalic, atraumatic. PERRLA.?? HEART: Regular rate and rhythm without murmur. LUNGS: Clear to auscultation bilaterally, no wheeze, rales or rhonchi. ABDOMEN: Soft, nontender, nondistended. ??No palpable masses. EXTREMITIES: No edema or tenderness. PSYCHIATRIC: Cooperative, appropriate mood and affect ?? Vulva: No abnormal swelling Vagina: Lochia rubra. Perineum: Intact, healing??well. Assessment/Plan 1.??Encounter for visit??Z39.2 2.??Vacuum-assisted vaginal delivery??Z37.9 The patient is doing very well overall. She is physically fine with a normal cardiac exam and tapering/finished lochial flow. She and the baby are bonding well and, as expected, are having mostly good days. I reviewed control options with??breast-feeding. ??Primarily progesterone only types of control are recommended.?? She??will consider the options??before her next appointment. Follow Up Instructions With When Contact Information Jt Hutchins MD In 3 weeks [address] [place] [address] Additional Instructions: 6 weeks?? appointment Problem List/Past Medical History Ongoing Acne vulgaris Back pain Depression Dermatitis DJD (degenerative joint disease) Letitia-Danlos syndrome Encounter for visit Marginal insertion of umbilical cord affecting management of mother Post term Vacuum-assisted vaginal delivery Historical Medications acetaminophen 325 mg oral tablet, 650 mg= 2 tab, Oral, every 4 hr, PRN ibuprofen 600 mg oral tablet, 600 mg= 1 tab, Oral, every 4 hr, PRN 19 (Nationwide) oral tablet, 1 tab, Oral, Daily Vitamin D3 1000 intl units oral capsule, 25 mcg= 1 cap, Oral, Daily Allergies No Known Medication Allergies Social History Alcohol Past, Beer, 1-2 times per month Electronic Cigarette/Vaping Electronic Cigarette Use: Never. 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 Home/Environment Lives with Significant other. Living situation: Home/Independent. Sexual Sexually active: Yes. Substance Use Never Tobacco Former tobacco user Tobacco Use:. stopped smoking when she found out she was . per day. Never Smokeless Tobacco use:. Family History Alive and well: Mother, Father, Brother and Daughter. SVT - Supraventricular tachycardia: Brother. Immunizations Vaccine Date Status tetanus/diphth/pertuss (Tdap) adult/adol 03/09/2023 Given Electronically Signed on 07/05/23 03:17 PM Jt Hutchins MD Patient Care team information Care Team Personnel Name: ANGIE JOSEPH PA-C Position: No Access Member Role: Primary Care Physician Address: Address: [address] [address]- Care Team Related Persons Name: CHELY HUIZAR Address: Home [address] [place] [phone] Name: BOGDAN HUIZAR Address: Home [address] [place] [phone] [facility] Name: BAYLEE SOTELO Address: [address] [phone] [facility] Name: BAYLEE SOTELO Address: [address] [phone] [facility]
--- OUTSIDE RECORDS SUMMARY | 2024-03-27 13:56 | XMS_ITS | Continuity of Care Document ---
Author Name Unknown Organization [facility] Ambulatory Clinics Address [address] [place] [address] Care Team Providers Care Power And Recovery Superintendent Name Role Phone ANGIE JOSEPH PA-C Primary Care Physician Encounter [facility] NBR [phone] Date(s): 03/21/23 - 03/21/23 [facility] Ambulatory Clinics [address] [place], [place] [address] Encounter Diagnosis Encounter for care of primigravida in third trimester, antepartum (Discharge Diagnosis) - 03/21/23 Marginal insertion of umbilical cord affecting management of mother(Discharge Diagnosis) - 03/21/23 Discharge Disposition: Home or Self Care Attending Physician: Rosy Armenta Allergies, Adverse Reactions, Alerts No Known Medication Allergies Assessment and Plan Future Appointments Appointment Date:04/06/2023 10:30:00 AM Scheduled Provider:Jose Curry MD Location:[facility] Appointment Type:OB Follow Up Appointment Date:04/18/2023 10:00:00 AM Scheduled Provider:Toi Hilton MD Location:[facility] Appointment Type:OB Follow Up Appointment Date:05/03/2023 10:00:00 AM Scheduled Provider:Jt Hutchins Location:[facility] Appointment Type:OB Follow Up Future Scheduled Tests Laboratory* .GTT 3 HR OB 100gm 03/09/23 * .GTT 2 HR OB 100gm 03/09/23 * .GTT 1 HR OB 100gm 03/09/23 * .GTT Fasting OB 03/09/23 Functional Status 03/21/23 Other exposure to Infectious Disease Non e Immunizations Given and Recorded Vaccine Date Status [...] [Reference Range]: 1 Protein Urine Dipstick Trace (03/21/23 2:17 PM) Glucose Urine Dipstick 1/10 (100 mg/dl) (03/21/23 2:17 PM) Vital Signs Most recent to oldest [Reference Range]: 1 2 Systolic Blood Pressure [90-140 mmHg] 11 0 mmHg (03/21/23 2:17 PM) 110 mmHg (03/21/23 2:17 PM) Diastolic Blood Pressure [60-90 mmHg] 60 mmHg (03/21/23 2:17 PM) 60 mmHg (03/21/23 2:17 PM) Weight 70.0 kg (03/21/23 2:17 PM) Murray Body Weight Calculated 51.476 kg (03/21/23 2:17 PM) Pre- Weight 58.51 kg (03/21/23 2:17 PM) Height 159 cm (03/21/23 2:17 PM) 159 cm (03/21/23 2:17 PM) Height/Length Measured (inches) 62.6 inc h (03/21/23 2:17 PM) Social History Social History Type Response Tobacco Former tobacco user Tobacco Use:. stopped smoking when she found out she was . per day. Sex Physician Outpatient Note * Rosy Armenta: PERFORM Event Display: Office Clinic Note Physician Authored Date: [id number] OLIVE SOTELO :1995 Age:27 years Sex:Female Visit Date:03/21/2023 Primary Care Physician: JAKE SORIA, ANGIE Sotelo JOEY/EGA Gestational Age (EGA) and JOEY? * Note: EGA calculated as of 03/21/2023 ?? JOEY:??06/03/2023?EGA*:??29 weeks 3 days ?Type:??Authoritative?Method Date:??08/27/2022 ?Method:??Last Menstrual Period??(08/27/2022) ?Confirmation:??Confirmed ?Description:??-- ?Comments:??-- ?Entered by:??Deisy Ragsdale on 02/16/2023? Other JOEY Calculations for this : ?Method:??Ultrasound ?Method Date:??03/21/2023 ?JOEY:??06/02/2023 ?EGA (At Entry):??29 weeks 4 days ?Type:??Non-Authoritative ?Comments:??Vertex, DANNY 10, marginal cord-1.3 cm from placental periphery, 1420 g/38th percentile ?Entered by:??Toi Hilton MD on 03/21/2023 ?Method:??Ultrasound ?Method Date:??01/11/2023 ?JOEY:??06/03/2023 ?EGA (At Entry):??19 weeks 4 days ?Type:??Non-Authoritative ?Comments:??Performed at [facility] ?Entered by:??Rosy Armenta on 02/16/2023 Chief Complaint OB follow up 29 and 3. Glucose done today. Questions or concerns: Risk Factors Risk Factors, Antepartum Current Preg: Other: Marginal cord insertion. M recommended growth US at28-30 weeks and 34-36 weeks. (02/16/23) Risk Factors, Antepartum Current Preg: Other: EDS type 3 (02/16/23) Assessment/Plan 1.??Encounter for care of primigravida in third trimester, antepartum??Z34.03 Baby is active. No lof/bleeding/ctx. Tdap last visit. 3 hr gtt today, normal. Considering breast pump options. Reviewed CBE classes. 2.??Marginal insertion of umbilical cord affecting management of mother??O43.199 Reviewed US and will plan to repeat between 34-36 weeks. Cards Exam and Notes ?? Exams and Notes ?? Date:??03/21/23 EGA:??29w3d Weight (lbs kg):??*154... Fundal Height [...] Cigarette Use: Never. 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 Home/Environment Lives with Significant other. Living situation: Home/Independent. Sexual Sexually active: Yes. Substance Use Never Tobacco Former tobacco user Tobacco Use:. stopped smoking when she found out she was . per day. Immunizations Vaccine Date Status tetanus/diphth/pertuss (Tdap) adult/adol 03/09/2023 Given PCM Transcribed Labs ABO/Rh Echo: AB POS Blood Type, Transcribed: AB positive Chlamydia Date Performed: 11/16/22 Chlamydia, Transcribed: Negative Genetic Testing Date Performed: 12/01/22 Genetic Testing, Results Text: Sample collected 13w,5 days. Negative for triploid,monosomyx, trisomy 21,18,and 13. sex female. Genetic Testing, Transcribed: Yes Gonorrhea Date Performed: 11/16/22 Gonorrhea, Transcribed: Negative Hep Bs Ag: Non Reactive1 RPR Date Performed: 11/18/22 RPR, Transcribed: Negative Rubella Date Performed: 11/17/22 Rubella,Transcribed: Immune Electronically Signed on 03/21/23 02:43 PM Rosy Armenta Patient Care team information Care Team Personnel Name: JAKE SORIA, ANGIE Sotelo Position: No Access Member Role: Primary Care Physician Address: Address: [address] Care Team Related Persons Name: BOGDAN HUIZAR Address: [address] [phone] [facility] Name: BRITTANY SOTELO Address: [address] [phone] [facility] Name: BRITTANY SOTELO Address: [address] [address] [facility]
--- OUTSIDE RECORDS SUMMARY | 2024-03-27 13:56 | XMS_ITS | Continuity of Care Document ---
Author Name Unknown Organization [facility] Address [address] [place] [phone] Care Team Providers Care Animal Attendants And Trainers Name Role Phone ANGIE JOSEPH PA-C Primary Care Physician Encounter [facility] NBR [id number] Date(s): 05/09/23 - 05/09/[address] [phone] [place] Encounter Diagnosis Encounter for care of primigravida in third trimester, antepartum (Discharge Diagnosis) - 05/09/23 Discharge Disposition: Home or Self Care Attending Physician: Jt Hutchins Admitting Physician: Jt Hutchins Referring Physician: Jt Hutchins Allergies, Adverse Reactions, Alerts No Known Medication Allergies Assessment and Plan Future Appointments Appointment Date:05/16/2023 10:00:00 AM Scheduled Provider:Toi Hilton MD Location:[facility] Appointment Type:OB Follow Up Appointment Date:05/23/2023 10:30:00 AM Scheduled Provider:Jt Hutchins Location:[facility] Appointment Type:OB Follow Up Appointment Date:05/30/2023 10:15:00 AM Scheduled Provider:Toi Hilton MD Location:[facility] Appointment Type:OB Follow Up Appointment Date:06/07/2023 10:30:00 AM Scheduled Provider:Jt Hutchins Location:[facility] Appointment Type:OB Follow Up Diagnostic Tests Pending * Group B Strep (GeneXpert) 05/09/23 Future Scheduled Tests Laboratory* .GTT 3 HR [...] primigravida in third trimester, antepartum Confirmed Active Social History Social History Type Response Smoking Status Smoking tobacco use: Former tobacco user;Never; Number used per day: stopped smoking when she found out she was .; entered on: 04/21/23 Sex Patient Care team information Care Team Personnel Name: JAKE SORIA, ANGIE Sotelo Position: No Access Member Role: Primary Care Physician Address: Address: [address] Care Team Related Persons Name: BOGDAN HUIZAR Address: Home [address] [place] [phone] [facility] Name: BRITTANY SOTELO Address: Home [facility] [phone] [facility] Name: BRITTANY SOTELO Address: Home [address] [place] [phone] [facility]
--- OUTSIDE RECORDS SUMMARY | 2024-03-27 13:56 | XMS_ITS | Continuity of Care Document ---
Author Name Unknown Organization [facility] Ambulatory Clinics Address [address] [place] [address] Care Team Providers Care Breeder Hen Service Technician Name Role Phone ANGIE JOSEPH PA-C Primary Care Physician Encounter [facility] NBR [id number] Date(s): 05/30/23 - 05/30/23 [facility] Ambulatory Clinics [address] [place], [place] [address] Encounter Diagnosis Encounter for care of primigravida in third trimester, antepartum (Discharge Diagnosis) - 05/30/23 Discharge Disposition: Home or Self Care Attending Physician: Toi Hilton MD Allergies, Adverse Reactions, Alerts No Known Medication Allergies Assessment and Plan Future Appointments Appointment Date:06/07/2023 10:30:00 AM Scheduled Provider:Jt Hutchins Location:[facility] Appointment Type:OB Follow Up Future [...] [Reference Range]: 1 Protein Urine Dipstick Negative (05/30/23 10:11 AM) Glucose Urine Dipstick Negative (05/30/23 10:11 AM) Urine Color Urine Dipstick Yellow (05/30/23 10:11 AM) Urine Appearance Urine Dipstick Clear (05/30/23 10:11 AM) Vital Signs Most recent to oldest [Reference Range]: 1 2 Blood Pressure [90-140/60-90 mmHg] 134/7 0mmHg (05/30/23 10:11 AM) Weight 80.2 kg (05/30/23 10:11 AM) Weight Measured (lbs) 176.811 lb (05/30/23 10:11 AM) [place] Body Weight Calculated 51.476 kg (05/30/23 10:11 AM) Pre- Weight 58.51 kg (05/30/23 10:11 AM) Cumulative Weight Gain 22 kg (05/30/23 10:11 AM) Height 159 cm (05/30/23 10:11 AM) 159 cm (05/30/23 10:11 AM) Height/Length Measured (inches) 62.6 inc h (05/30/23 10:11 AM) BSA Measured 1.88 m2 (05/30/23 10:11 AM) Body Mass Index 31.72 kg/m2 (05/30/23 10:11 AM) 31.72 kg/m2 (05/30/23 10:11 AM) Social History Social History Type Response Smoking Status Smoking tobacco use: Former tobacco user;Never; Number used per day: stopped smoking when she found out she was .; entered on: 04/21/23 Sex Physician Outpatient Note * Toi Hilton MD: PERFORM Event Display: Office Clinic Note Physician Authored Date: [id number] OLIVE SOTELO :1995 Age:27 years Sex:Female Visit Date:05/30/2023 Primary Care Physician: ANGIE JOSEPH PA-C JOEY/EGA Gestational Age (EGA) and JOEY? * Note: EGA calculated as of 05/30/2023 ?? JOEY:??06/03/2023?EGA*:??39 weeks 3 days ?Type:??Authoritative?Method Date:??08/27/2022 ?Method:??Last Menstrual [...] Entry):??19 weeks 4 days ?Type:??Non-Authoritative ?Comments:??Performed at [facility] ?Entered by:??Rosy Armenta on 02/16/2023 Chief Complaint OB follow-up History of Present Illness The baby is active. ??Feeling lower in the pelvis. ??She did have 1 night??of nausea and vomiting-?related to something she ate??or uterine irritability. Physical Exam Vitals & Measurements BP:??134/70?? HT:??159??cm?? HT:??159??cm?? WT:??80.2??kg?? BMI:??31.72?? BMI:??31.72?? BSA:??1.88?? Risk Factors Risk Factors, Antepartum Current Preg: Other: velamentous cord (05/16/23) Risk Factors, Antepartum Current Preg: Other: Marginal cord insertion. [facility] recommended growth US at28-30 weeks and 34-36 weeks. (02/16/23) Risk Factors, Antepartum Current Preg: Other: EDS type 3 (02/16/23) Assessment/Plan 1.??Encounter for care of primigravida in third trimester, antepartum??Z34.03 Doing well overall. ??Postdates management??with nonstress testing and amniotic fluid index evaluation was reviewed.?? She does not want to have an induction if she can avoid it. Cards Exam and Notes ?? Exams and Notes ?? Date:??05/30/23 EGA:??39w3d Weight (lbs kg):??*176... Fundal Height (cm):??38 ? Blood Pressure (mmHg):??134/70 ? Cervix Exam (Dil cm/Eff %/Sta -):--/--/--?? Labor S/S:?? Urine Glucose:??Negative Urine Protein:??Negative Next Visit:??+1 weeks from 05/30/2023 Baby A?FHR:??140 ? Movement:?Presentation:??-- ? Date:??05/23/23 EGA:??38w3d Weight (lbs kg):??*177... Fundal Height [...] Cigarette Use: Never. 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 Home/Environment Lives with Significant other. Living [...] Performed: 11/16/22 Rubella,Transcribed: Immune Electronically Signed on 05/30/23 10:57 AM Toi Hilton MD Patient Care team information Care Team Personnel Name: ANGIE JOSEPH PA-C Position: No Access Member Role: Primary Care Physician Address: Address: [address] Care Team Related Persons Name: BOGDAN HUIZAR Address: [address] [phone] [place] Name: BRITTANY SOTELO Address: [address] [phone] [facility] Name: BRITTANY SOTELO Address: [address] [phone] [place]
--- OUTSIDE RECORDS SUMMARY | 2024-03-27 13:56 | XMS_ITS | Continuity of Care Document ---
Author Name Unknown Organization [facility] Ambulatory Clinics Address [address] [place] [address] Care Team Providers Care Band Instrument Maker Name Role Phone ANGIE JOSEPH PA-C Primary Care Physician ( [phone] Encounter [id number] Date(s): 04/06/23 - 04/06/23 [facility] Ambulatory Clinics [address] [place] [address]- Encounter Diagnosis Marginal insertion of umbilical cord affecting management of mother(Discharge Diagnosis) - 04/06/23 Discharge Disposition: Home or Self Care Attending Physician: Jose Curry MD Referring Physician: Jose Curry MD Allergies, Adverse Reactions, Alerts No Known Medication Allergies Assessment and Plan Future Appointments Appointment Date:04/21/2023 02:15:00 PM Scheduled Provider:Rosy Armenta Location:[facility] Appointment Type:OB Follow Up Appointment Date:05/03/2023 11:00:00 AM Scheduled Provider:Jt Hutchins Location:[facility] Appointment Type:OB Follow Up Appointment Date:05/09/2023 10:45:00 AM Scheduled Provider:Jt Hutchins Location:[facility] Appointment Type:OB Follow Up Appointment Date:05/16/2023 10:00:00 AM Scheduled Provider:Toi Hilton MD Location:[facility] Appointment Type:OB Follow Up Appointment Date:05/23/2023 10:30:00 AM Scheduled Provider:Jt Hutchins Location:[facility] Appointment Type:OB Follow Up Appointment Date:05/30/2023 10:15:00 AM Scheduled Provider:Toi Hilton MD Location:[facility] Appointment Type:OB Follow Up Appointment Date:06/07/2023 10:30:00 AM Scheduled Provider:Jt Hutchins Location:[facility] Appointment Type:OB Follow Up Future Scheduled Tests Laboratory* .GTT 3 HR OB 100gm 03/09/23 * .GTT 2 HR OB 100gm 03/09/23 * .GTT 1 HR OB 100gm 03/09/23 * .GTT Fasting OB 03/09/23 Radiology* US OB Follow Up 04/21/23 Functional Status 04/06/23 Other exposure to Infectious Disease Non e [...] Range]: 1 2 Blood Pressure [90-140/60-90 mmHg] 100/6 0mmHg (04/06/23 11:32 AM) Weight 72.6 kg (04/06/23 11:32 AM) [place] Body Weight Calculated 51.476 kg (04/06/23 11:32 AM) Pre- Weight 58.51 kg (04/06/23 11:32 AM) Height 159 cm (04/06/23 11:32 AM) 159 cm (04/06/23 11:32 AM) Height/Length Measured (inches) 62.6 inc h (04/06/23 11:32 AM) Social History Social History Type Response Tobacco Former tobacco user Tobacco Use:. stopped smoking when she found out she was . per day. Sex Physician Outpatient Note * Jose Curry MD: PERFORM Event Display: Office Clinic Note Physician Authored Date: [id number] OLIVE SOTELO :1995 Age:27 years Sex:Female Visit Date:04/06/2023 Primary Care Physician: ANGIE JOSEPH PA-C JOEY/EGA Gestational Age (EGA) and JOEY? * Note: EGA calculated as of 04/06/2023 ?? JOEY:??06/03/2023?EGA*:??31 weeks 5 days ?Type:??Authoritative?Method Date:??08/27/2022 ?Method:??Last Menstrual [...] Entry):??19 weeks 4 days ?Type:??Non-Authoritative ?Comments:??Performed at [facility] ?Entered by:??KathiRosy Dilia on 02/16/2023 Chief Complaint Ob follow up, 31 and 5 pt denied urine today. Questions or concerns: pt is starting to get uncomfortable. feeling baby move often. Physical Exam Vitals & Measurements BP:??100/60?? HT:??159??cm?? HT:??159??cm?? WT:??72.6??kg?? Risk Factors Risk Factors, Antepartum Current Preg: Other: Marginal cord insertion. [facility] recommended growth US at28-30 weeks and 34-36 weeks. (02/16/23) Risk Factors, Antepartum Current Preg: Other: EDS type 3 (02/16/23) Assessment/Plan 1.??Marginal insertion of umbilical cord affecting management of mother??O43.199 Doing well. No problems Will schedule growth US in 2 weeks. Next visit 2 weeks as well. Ordered: US OB Follow Up, 04/18/23, Routine, Reason: Growth - Marginal cord insertion, Transport Mode: Ambulatory, Marginal insertion of umbilical cord affecting management of mother ?? Cards Exam and Notes ?? Exams and Notes ?? Date:??04/06/23 EGA:??31w5d Weight (lbs kg):??*160... Fundal Height (cm):??-- ? Blood Pressure (mmHg):??100/60 ? Cervix Exam (Dil cm/Eff %/Sta -):--/--/--?? Labor S/S:?? Urine Glucose:?? Urine Protein:?? Next Visit:? Date:??03/21/23 EGA:??29w3d Weight (lbs kg):??*154... Fundal Height [...] Cigarette Use: Never. 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 Home/Environment Lives with Significant other. Living [...] Performed: 11/17/22 Rubella,Transcribed: Immune Electronically Signed on 04/06/23 11:51 AM Jose Curry MD Patient Care team information Care Team Personnel Name: ANGIE JOSEPH PA-C Position: No Access Member Role: Primary Care Physician Address: Address: [place] [address]- [place] Care Team Related Persons Name: BOGDAN HUIZAR Address: Home [address] [place] [phone] [facility] Name: BRITTANY SOTELO Address: Home [address] [place] [phone] [facility] Name: BRITTANY SOTELO Address: Home [address] [place] [phone] [facility]
--- OUTSIDE RECORDS SUMMARY | 2024-03-27 13:56 | XMS_ITS | Continuity of Care Document ---
Author Name Unknown Organization [facility] Address [address] [place] [address] Care Team Providers Care Car Usher Name Role Phone ANGIE JOSEPH PA-C Primary Care Physician Encounter [facility] [id number] Date(s): 02/16/23 - 02/16/23 [facility] [address] [place] [address]- [place] Encounter Diagnosis Encounter for care in second trimester of first (Discharge Diagnosis) - 02/16/23 Discharge Disposition: Home or Self Care Attending Physician: Rosy Armenta Admitting Physician: Rosy Armenta Allergies, Adverse Reactions, Alerts No Known Medication Allergies Assessment and Plan Future Appointments Appointment Date:03/09/2023 12:00:00 PM Scheduled Provider:Toi Hilton MD Location:[facility] Appointment Type:OB Follow Up Medications 19 (Nationwide) oral tablet 0 Refill(s) [...] joint disease) Confirmed Active Confirmed 08/25/22 Active Social History Social History Type Response Tobacco Former tobacco user Tobacco Use:. stopped smoking when she found out she was . per day. Sex Patient Care team information Care Team Personnel Name: ANGIE JOSEPH PA-C Position: No Access Member Role: Primary Care Physician Address: Address: [address] [address] [place] Care Team Related Persons Name: SREEDHARGEMABOGDAN Address: Home [address] [place] [address] Name: BRITTANY SOTELO Address: Home [address] [place] [address] Name: BRITTANY SOTELO Address: Home [address] [place] [address]
--- OUTSIDE RECORDS SUMMARY | 2024-03-27 13:56 | XMS_ITS | Continuity of Care Document ---
Author Name Unknown Organization [facility] Address [address] [place] [address] Care Team Providers Care Envelope Sealer Operator Name Role Phone ANGIE JOSEPH PA-C Primary Care Physician Encounter [facility] [id number] Date(s): 03/21/23 - 03/21/[address] [address]- [place] Discharge Disposition: Home or Self Care Attending Physician: Toi Hilton MD Admitting Physician: Toi Hilton MD Referring Physician: Toi Hilton MD Allergies, Adverse Reactions, Alerts No Known Medication Allergies Assessment and Plan Future Appointments Appointment Date:04/06/2023 10:30:00 AM Scheduled Provider:Jose Curry MD Location:[facility] Appointment Type:OB Follow Up Appointment Date:04/18/2023 10:00:00 AM Scheduled Provider:Toi Hilton MD Location:[facility] Appointment Type:OB Follow Up Appointment Date:05/03/2023 10:00:00 AM Scheduled Provider:Jt Hutchins Location:[facility] Appointment Type:OB Follow Up Future Scheduled Tests [...] in third trimester, antepartum Confirmed Active Results Radiology Reports * Exam Date Time Procedure Performing Provider Status 03/21/23 1:38 PM US OB Follow Up Hilda Elder; Auth (V erified) Notes: (US OB Follow Up) Reason For Exam: marginal cord insertion- growth/DANNY check US OB Follow Up EXAM DESCRIPTION: US OB Follow Up 03/21/2023 INDICATION: MARGINAL CORD INSERTION- GROWTH/DANNY CHECK TECHNIQUE: Grayscale obstetric ultrasound COMPARISON: None FINDINGS: Single live intrauterine gestation in cephalic position with average ultrasound age of 29 weeks 4 days for an ultrasound JOEY of 06/02/2023. BPD: 29 weeks 2 days Head circumference: 29 weeks 0 days Abdominal circumference: 29 weeks 5 days Femur length: 29 weeks 6 days heart rate was 143 beats per minute. DANNY is 10 cm Posterior placenta. Marginal placental cord insertion which appears to be approximately 1.3 cm from the edge of the placenta. Estimated weight is 1420 g which is the 38th percentile by AUA. IMPRESSION: Single live intrauterine gestation in cephalic position with average ultrasound age of 29 weeks 4 days for an ultrasound JOEY of 06/02/2023. Posterior placenta with marginal cord insertion as described above. JOB #: [id number] Final Signed by: Jose Dsouza MD Signed (Electronic Signature): 03/21/2023 1:44 pm Social History Social History Type Response Tobacco Former tobacco user Tobacco Use:. stopped smoking when she found out she was . per day. Sex US for in second or third trimester * Jose Dsouza MD: VERIFY, VERIFY Event Display: Report EXAM DESCRIPTION: US OB Follow Up 03/21/2023 INDICATION: MARGINAL CORD INSERTION- GROWTH/DANNY CHECK TECHNIQUE: Grayscale obstetric ultrasound COMPARISON: None FINDINGS: Single live intrauterine gestation in cephalic position with average ultrasound age of 29 weeks 4 days for an ultrasound JOEY of 06/02/2023. BPD: 29 weeks 2 days Head circumference: 29 weeks 0 days Abdominal circumference: 29 weeks 5 days Femur length: 29 weeks 6 days heart rate was 143 beats per minute. DANNY is 10 cm Posterior placenta. Marginal placental cord insertion which appears to be approximately 1.3 cm from the edge of the placenta. Estimated weight is 1420 g which is the 38th percentile by AUA. IMPRESSION: Single live intrauterine gestation in cephalic position with average ultrasound age of 29 weeks 4 days for an ultrasound JOEY of 06/02/2023. Posterior placenta with marginal cord insertion as described above. JOB #: [id number] Final Signed by: Jose Dsouza MD Signed (Electronic Signature): 03/21/2023 1:44 pm Patient Care team information Care Team Personnel Name: ANGIE JOSEPH PA-C Position: No Access Member Role: Primary Care Physician Address: Address: [address] [address]- Care Team Related Persons Name: BOGDAN HUIZAR Address: Home [address] [place] [phone] [facility] Name: BRITTANY SOTELO Address: Home [facility] [address] [phone] [facility] Name: BRITTANY SOTELO Address: Home [facility] [address] [address] [facility]
--- OUTSIDE RECORDS SUMMARY | 2024-03-27 13:56 | XMS_ITS | Continuity of Care Document ---
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 Marginal insertion of umbilical cord affecting management of mother(Discharge Diagnosis) - 06/07/23 Post term (Discharge Diagnosis) - 06/07/23 Discharge Disposition: Home or Self Care Attending Physician: Jt Hutchins Referring Physician: Jt Hutchins [...] [Reference Range]: 1 Protein Urine Dipstick Trace (06/07/23 10:30 AM) Glucose Urine Dipstick Negative (06/07/23 10:30 AM) Urine Color Urine Dipstick Yellow (06/07/23 10:30 AM) Urine Appearance Urine Dipstick Clear (06/07/23 10:30 AM) Vital Signs Most recent to oldest [Reference Range]: 1 2 Blood Pressure [90-140/60-90 mmHg] 126/6 8mmHg (06/07/23 10:30 AM) Weight 80.5 kg (06/07/23 10:30 AM) 80.5 kg (06/07/23 10:30 AM) Weight Measured (lbs) 177.472 lb (06/07/23 10:30 AM) [place] Body Weight Calculated 51.476 kg (06/07/23 10:30 AM) Pre- Weight 58.51 kg (06/07/23 10:30 AM) Cumulative Weight Gain 22 kg (06/07/23 10:30 AM) Height 159 cm (06/07/23 10:30 AM) Height/Length Measured (inches) 62.6 inc h (06/07/23 10:30 AM) BSA Measured 1.89 m2 (06/07/23 10:30 AM) Body Mass Index 31.84 kg/m2 (06/07/23 10:30 AM) 31.84 kg/m2 (06/07/23 10:30 AM) Social History Social History Type Response Smoking Status Smoking tobacco use: Former tobacco user;Never; Number used per day: stopped smoking when she found out she was .; entered on: 04/21/23 Sex Note * Florence Henning: PERFORM Event Display: OB Note Authored Date: [id number] Transcribed Labs Entered On: 06/07/2023 7:43 EDT Performed On: 06/07/2023 7:38 EDT by Florence Henning Transcribed Labs Blood [...] 21,18,and 13. sex female. Florence Henning - 06/07/2023 7:38 EDT Electronically Signed on 06/07/2023 07:38 AM Florence Henning Physician Outpatient Note * Jt Hutchins: PERFORM Event Display: Office Clinic Note Physician Authored Date: [id number] OLIVE SOTELO :1995 Age:27 years Sex:Female Visit Date:06/07/2023 Primary Care Physician: ANGIE JOSEPH PA-C JOEY/EGA Gestational Age (EGA) and JOEY? * Note: EGA calculated as of 06/07/2023 ?? JOEY:??06/03/2023?EGA*:??40 weeks 4 days ?Type:??Authoritative?Method Date:??08/27/2022 ?Method:??Last Menstrual Period??(08/27/2022) ?Confirmation:??Confirmed [...] Entry):??19 weeks 4 days ?Type:??Non-Authoritative ?Comments:??Performed at [facility] ?Entered by:??Rosy Armenta on 02/16/2023 Chief Complaint OB follow appointment, 40.4 weeks, no concerns Physical Exam Vitals & Measurements BP:??126/68?? HT:??159??cm?? WT:??80.5??kg?? WT:??80.5??kg?? BMI:??31.84?? BMI:??31.84?? BSA:??1.89?? Risk Factors Risk Factors, Antepartum Current Preg: Other: velamentous cord (05/16/23) Risk Factors, Antepartum Current Preg: Other: Marginal cord insertion. [facility] recommended growth US at28-30 weeks and 34-36 weeks. 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 No leaking of fluid or vaginal bleeding.?? We reviewed??postdates management.?? Office US- Vertex,??posterior fundal grade 2 placenta, BPP 05/10, DANNY 12.5 cm. Pt to OB for NST. ??IOL scheduled for 06/13. Cards Exam and Notes ?? Exams and Notes ?? Date:??06/07/23 EGA:??40w4d Weight (lbs kg):??*177... Fundal Height (cm):??38 ? Blood Pressure (mmHg):??126/68 ? Cervix Exam (Dil cm/Eff %/Sta -):0/80%/-3?? Labor S/S:??None Urine Glucose:??Negative Urine Protein:??Trace Next Visit:??+1 weeks from 06/07/2023 Baby A?FHR:??138 ? Movement:??Present per patient ?Presentation:??Vertex ? Date:??05/30/23 EGA:??39w3d Weight (lbs kg):??*176... Fundal Height [...] (Dil cm/Eff %/Sta -):--/--/--?? Labor S/S:??None Urine Glucose:??10 (100 mg/dl) Urine Protein:??Trace Next Visit:??+2 weeks [...] cord affecting management of mother Post term Historical No qualifying data Medications 19 (Nationwide) oral tablet Vitamin D3 1000 intl units oral capsule, 25 mcg= 1 cap, Oral, Daily Allergies No Known Medication Allergies Social History Alcohol Past, Beer, 1-2 times per month Electronic Cigarette/Vaping Electronic Cigarette Use: Never. 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 Home/Environment Lives with Significant other. Living [...] Performed: 11/16/22 Rubella,Transcribed: Immune Electronically Signed on 06/07/23 11:04 AM Jt Hutchins Patient Care team information Care Team Personnel Name: JAKE SORIA, ANGIE Sotelo Position: No Access Member Role: Primary Care Physician Address: Address: [phone] [place] [address] Care Team Related Persons Name: BOGDAN HUIZAR Address: [address] [phone] [facility] Name: BRITTANY SOTELO Address: [address] [phone] [facility] Name: BRITTANY SOTELO Address: [address] [phone] [facility]
--- OUTSIDE RECORDS SUMMARY | 2024-03-27 13:56 | XMS_ITS | Continuity of Care Document ---
Author Name Unknown Organization [facility] Ambulatory Clinics Address [address] [place] [address] Care Team Providers Care Management Accountant Name Role Phone ANGIE JOSEPH PA-C Primary Care Physician Encounter [facility] [id number] Date(s): 04/21/23 - 04/21/23 [facility] Ambulatory Clinics [address] [place] [address]- Encounter Diagnosis Encounter for care of primigravida in third trimester, antepartum (Discharge Diagnosis) - 04/21/23 Marginal insertion of umbilical cord affecting management of mother(Discharge Diagnosis) - 04/21/23 Discharge Disposition: Home or Self Care Attending Physician: Rosy Armenta Allergies, Adverse Reactions, Alerts No Known Medication Allergies Assessment and Plan Future Appointments Appointment Date:05/03/2023 11:00:00 AM Scheduled Provider:Jt Hutchins Location:[facility] Appointment Type:OB Follow Up Appointment Date:05/09/2023 10:45:00 AM Scheduled Provider:Jt Hutchins Location:[facility] Appointment Type:OB Follow Up Appointment Date:05/16/2023 10:00:00 AM Scheduled Provider:Toi Hilton MD Location:[facility] Appointment Type:OB Follow Up Appointment Date:05/23/2023 10:30:00 AM Scheduled Provider:Jt Hutchins Location:[facility] Appointment Type:OB Follow Up Appointment Date:05/30/2023 10:15:00 AM Scheduled Provider:Toi Hilton MD Location:[facility] Appointment Type:OB Follow Up Appointment Date:06/07/2023 10:30:00 AM Scheduled Provider:Jt Hutchins Location:[facility] Appointment Type:OB Follow Up Future Scheduled Tests Laboratory* .GTT 3 HR OB 100gm 03/09/23 * .GTT 2 HR OB 100gm 03/09/23 * .GTT 1 HR OB 100gm 03/09/23 * .GTT Fasting OB 03/09/23 Functional Status 04/21/23 Other exposure to Infectious Disease Non e [...] [Reference Range]: 1 Protein Urine Dipstick Negative (04/21/23 1:54 PM) Glucose Urine Dipstick Negative (04/21/23 1:54 PM) Urine Color Urine Dipstick Pale yellow (04/21/23 1:54 PM) Urine Appearance Urine Dipstick Clear (04/21/23 1:54 PM) Vital Signs Most recent to oldest [Reference Range]: 1 2 Blood Pressure [90-140/60-90 mmHg] 116/6 2mmHg (04/21/23 1:54 PM) Weight 75.7 kg (04/21/23 1:54 PM) Weight Measured (lbs) 166.89 lb (04/21/23 1:54 PM) [place] Body Weight Calculated 51.476 kg (04/21/23 1:54 PM) Pre- Weight 58.51 kg (04/21/23 1:54 PM) Cumulative Weight Gain 17 kg (04/21/23 1:54 PM) Height 159 cm (04/21/23 1:54 PM) Height/Length Measured (inches) 62.6 inc h (04/21/23 1:54 PM) BSA Measured 1.83 m2 (04/21/23 1:54 PM) Body Mass Index 29.94 kg/m2 (04/21/23 1:54 PM) 29.94 kg/m2 (04/21/23 1:54 PM) Social History Social History Type Response Smoking Status Smoking tobacco use: Former tobacco user;Never; Number used per day: stopped smoking when she found out she was .; entered on: 04/21/23 Sex Note * Florence Henning: PERFORM Event Display: OB Note Authored Date: [id number] Transcribed Labs Entered On: 04/19/2023 18:08 EDT Performed On: 04/19/2023 18:05 EDT by Florence Henning Transcribed Labs Blood Type, Transcribed : AB positive Rubella,Transcribed : Immune Rubella Date Performed : 11/16/2022 EST Hepatitis B, Transcribed : Negative Hepatitis B Date Performed : 03/09/2023 EDT Pap Smear, Transcribed : Normal Pap Smear Date Performed : 11/16/2022 EST HIV Antibodies, Transcribed : Negative HIV Date Performed : 03/09/2023 EDT RPR, Transcribed : Negative RPR Date Performed : 11/16/2022 EST Varicella, Transcribed : Negative Varicella Date [...] of 3 Glucose Result : 91 mg/dL Genetic Testing Date Performed : 12/01/2022 EST Genetic Testing, Transcribed : Yes Genetic Testing, Results Text : Sample collected 13w,5 days. Negative for triploid,monosomy x, trisomy 21,18,and 13. sex female. Florence Henning - 04/19/2023 18:05 EDT Electronically Signed on 04/19/2023 06:05 PM Florence Henning Physician Outpatient Note * Kathi Rosy J: PERFORM Event Display: Office Clinic Note Physician Authored Date: [id number] OLIVE SOTELO :1995 Age:27 years Sex:Female Visit Date:04/21/2023 Primary Care Physician: ANGIE JOSEPH PA-C JOEY/EGA Gestational Age (EGA) and JOEY? * Note: EGA calculated as of 04/21/2023 ?? JOEY:??06/03/2023?EGA*:??33 weeks 6 days ?Type:??Authoritative?Method Date:??08/27/2022 ?Method:??Last Menstrual Period??(08/27/2022) ?Confirmation:??Confirmed ?Description:??-- ?Comments:??-- ?Entered by:??Deisy Ragsdale on 02/16/2023? Other JOEY Calculations for this : ?Method:??Ultrasound ?Method Date:??03/21/2023 ?JOEY:??06/02/2023 ?EGA (At Entry):??29 weeks 4 days ?Type:??Non-Authoritative ?Comments:??Vertex, DANNY 10, marginal cord-1.3 cm from placental periphery, 1420 g/38th percentile ?Entered by:??Toi Hilton MD on 03/21/2023 ?Method:??Ultrasound ?Method Date:??01/11/2023 ?JOEY:??06/03/2023 ?EGA (At Entry):??19 weeks 4 days ?Type:??Non-Authoritative ?Comments:??Performed at [facility] ?Entered by:??Rosy Armenta on 02/16/2023 Chief Complaint OB follow appointment, 33.6 weeks, bilateral lower extremity and feet swelling seems to be getting worse, espeically while working, 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 HT:??159??cm?? WT:??75.7??kg?? BMI:??29.94?? BMI:??29.94?? BSA:??1.83?? Risk Factors Risk Factors, Antepartum Current Preg: Other: Marginal cord insertion. M recommended growth US at28-30 weeks and 34-36 weeks. (02/16/23) Risk Factors, Antepartum Current Preg: Other: EDS type 3 (02/16/23) Assessment/Plan 1.??Encounter for care of primigravida in third trimester, antepartum??Z34.03 US today, report pending during office visit. Baby is active. No??lof/bleeding/ctx. DANNY 10 EFW 2205grams 32 percentile. Cord insertion 2 cm from placental edge. 2.??Marginal insertion of umbilical cord affecting management of mother??O43.199 Cards Exam and Notes ?? Exams and Notes ?? Date:??04/21/23 EGA:??33w6d Weight (lbs kg):??*166... 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 Home/Environment Lives with Significant other. Living [...] Chlamydia, Transcribed: Negative Genetic Testing Date Performed: 03/01/23 Genetic Testing, Results Text: Sample collected 13w,5 [...] Performed: 11/16/22 Rubella,Transcribed: Immune Electronically Signed on 04/21/23 05:22 PM Rosy Armenta Patient Care team information Care Team Personnel Name: JAKE SORIA, ANGIE Sotelo Position: No Access Member Role: Primary Care Physician Address: Address: [address] [address]- Care Team Related Persons Name: BOGDAN HUIZAR Address: Home [address] [place] [phone] [facility] Name: BRITTANY SOTELO Address: Home [address] [place] [phone] [facility] Name: BRITTANY SOTELO Address: Home [address] [place] [phone] [facility]
--- OUTSIDE RECORDS SUMMARY | 2024-03-27 13:56 | XMS_ITS | Continuity of Care Document ---
Author Name Unknown Organization [facility] Address [address] [place] [phone] Care Team Providers Care Machinist Wood Name Role Phone ANGIE JOSEPH PA-C Primary Care Physician Encounter [facility] [id number] Date(s): 03/21/23 - 03/21/[address] [address]- [place] Discharge Disposition: Home or Self Care Attending Physician: Rosy Armenta Admitting Physician: Rosy Armenta Referring Physician: Rosy Armenta Allergies, Adverse Reactions, Alerts No Known Medication Allergies Assessment and Plan Future Appointments Appointment Date:04/06/2023 10:30:00 AM Scheduled Provider:Jose Curry MD Location:[facility] Appointment Type:OB Follow Up Appointment Date:04/18/2023 10:00:00 AM Scheduled Provider:Toi Hilton MD Location:[facility] Appointment Type:OB Follow Up Appointment Date:05/03/2023 10:00:00 AM Scheduled Provider:Jt Hutchins Location:[facility] Appointment Type:OB Follow Up Future Scheduled [...] in third trimester, antepartum Confirmed Active Results Laboratory List Name Date .GTT 3 HR OB 100gm 03/21/23 .GTT 2 HR OB 100gm 03/21/23 .GTT 1 HR OB 100gm 03/21/23 .GTT Fasting OB 03/21/23 Most recent to oldest [Reference Range]: 1 Gluc Fasting OB [<=95] 92 (03/21/23 7:53 AM) Gluc 1 Hr OB 100gm [<=180] 128 (03/21/23 8:57 AM) Gluc 2 Hr OB 100gm [<=155] 91 (03/21/23 9:57 AM) Gluc 3 Hr OB 100gm [<=140] 83 (03/21/23 11:01 AM) Social History Social History Type Response Tobacco Former tobacco user Tobacco Use:. stopped smoking when she found out she was . per day. Sex Patient Care team information Care Team Personnel Name: ANGIE JOSEPH PA-C Position: No Access Member Role: Primary Care Physician Address: Address: [place] [address]- Care Team Related Persons Name: BOGDAN HUIZAR Address: Home [address] [place] [phone] [facility] Name: BRITTANY SOTELO Address: Home [address] [place] [id number] [facility] Name: BRITTANY SOTELO Address: Home [address] [place] [phone] [facility]
--- OUTSIDE RECORDS SUMMARY | 2024-03-27 13:56 | XMS_ITS | Continuity of Care Document ---
Author Name Unknown Organization [facility] Ambulatory Clinics Address [address] [place] [address] Care Team Providers Care Family Partner Name Role Phone ANGIE JOSEPH PA-C Primary Care Physician ( [phone] Encounter [facility] NBR [id number] Date(s): 05/09/23 - 05/09/23 [facility] Ambulatory Clinics [address] [place], [place] [address] Encounter Diagnosis Encounter for care of primigravida in third trimester, antepartum (Discharge Diagnosis) - 05/09/23 Marginal insertion of umbilical cord affecting management of mother(Discharge Diagnosis) - 05/09/23 Discharge Disposition: Home or Self Care Attending Physician: Jt Hutchins Allergies, Adverse Reactions, Alerts No Known Medication Allergies Assessment and Plan Future Appointments Appointment Date:05/16/2023 10:00:00 AM Scheduled Provider:Toi Hilton MD Location:[facility] Appointment Type:OB Follow Up Appointment Date:05/23/2023 10:30:00 AM Scheduled Provider:Jt Hutchins Location:[facility] Appointment Type:OB Follow Up Appointment Date:05/30/2023 10:15:00 AM Scheduled Provider:Toi Hilton MD Location:[facility] Appointment Type:OB Follow Up Appointment Date:06/07/2023 10:30:00 AM Scheduled Provider:Jt Hutchins Location:[facility] Appointment Type:OB Follow Up Future [...] [Reference Range]: 1 Protein Urine Dipstick Negative (05/09/23 10:32 AM) Glucose Urine Dipstick Negative (05/09/23 10:32 AM) Urine Color Urine Dipstick Yellow (05/09/23 10:32 AM) Urine Appearance Urine Dipstick Clear (05/09/23 10:32 AM) Vital Signs Most recent to oldest [Reference Range]: 1 2 Blood Pressure [90-140/60-90 mmHg] 124/6 0mmHg (05/09/23 10:32 AM) Weight 78.4 kg (05/09/23 10:32 AM) Weight Measured (lbs) 172.842 lb (05/09/23 10:32 AM) [place] Body Weight Calculated 51.476 kg (05/09/23 10:32 AM) Pre- Weight 58.51 kg (05/09/23 10:32 AM) Cumulative Weight Gain 20 kg (05/09/23 10:32 AM) Height 159 cm (05/09/23 10:32 AM) Height/Length Measured (inches) 62.6 inc h (05/09/23 10:32 AM) BSA Measured 1.86 m2 (05/09/23 10:32 AM) Body Mass Index 31.01 kg/m2 (05/09/23 10:32 AM) 31.01 kg/m2 (05/09/23 10:32 AM) Social History Social History Type Response Smoking Status Smoking tobacco use: Former tobacco user;Never; Number used per day: stopped smoking when she found out she was .; entered on: 04/21/23 Sex Physician Outpatient Note * Jt Hutchins: PERFORM Event Display: Office Clinic Note Physician Authored Date: [id number] OLIVE SOTELO :1995 Age:27 years Sex:Female Visit Date:05/09/2023 Primary Care Physician: ANGIE JOSEPH PA-C JOEY/EGA Gestational Age (EGA) and JOEY? * Note: EGA calculated as of 05/09/2023 ?? JOEY:??06/03/2023?EGA*:??36 weeks 3 days ?Type:??Authoritative?Method Date:??08/27/2022 ?Method:??Last Menstrual [...] Entry):??19 weeks 4 days ?Type:??Non-Authoritative ?Comments:??Performed at [facility] ?Entered by:??Rosy Armenta on 02/16/2023 Chief Complaint OB follow appointment, 36.3 weeks, GBS today Physical Exam Vitals & Measurements BP:??124/60?? HT:??159??cm?? WT:??78.4??kg?? BMI:??31.01?? BMI:??31.01?? BSA:??1.86?? Risk Factors Risk Factors, Antepartum Current Preg: Other: Marginal cord insertion. M recommended growth US at28-30 weeks and 34-36 weeks. (02/16/23) Risk Factors, Antepartum Current Preg: Other: EDS type 3 (02/16/23) Assessment/Plan 1.??Encounter for care of primigravida in third trimester, antepartum??Z34.03 Ordered: Group B Strep (GeneXpert), Swab, Routine Collect, 05/08/23, Once, Nurse collect, Print Label, Encounter for care of primigravida in third trimester, antepartum, Order for future visit ?? 2.??Marginal insertion of umbilical cord affecting management of mother??O43.199 ?? Good movements.?? More frequent Anthony Lopez contractions.?? Reviewed pain management duringlabor. ??GBS today. Cards Exam and Notes ?? Exams and Notes ?? Date:??05/09/23 EGA:??36w3d Weight (lbs kg):??*172... Fundal Height [...] Cigarette Use: Never. 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 Home/Environment Lives with Significant other. Living [...] Performed: 11/16/22 Rubella,Transcribed: Immune Electronically Signed on 05/09/23 10:59 AM Jt Hutchins Patient Care team information Care Team Personnel Name: JAKE SORIA, ANGIE Sotelo Position: No Access Member Role: Primary Care Physician Address: Address: [address] [address]- [place] Care Team Related Persons Name: BOGDAN HUIZAR Address: [address] [phone] [facility] Name: BRITTANY SOTELO Address: [address] [phone] [facility] Name: BRITTANY SOTELO Address: [address] [phone] [facility]
--- OUTSIDE RECORDS SUMMARY | 2024-03-27 13:56 | XMS_ITS | Continuity of Care Document ---
Author Name Unknown Organization [facility] Ambulatory Clinics Address [address] [place] [address] Care Team Providers Care Electromechanical Assembler Name Role Phone ANGIE JOSEPH PA-C Primary Care Physician Encounter [facility] NBR [id number] Date(s): 05/16/23 - 05/16/23 [facility] Ambulatory Clinics [address] [place], [place] [address] Encounter Diagnosis Encounter for care of primigravida in third trimester, antepartum (Discharge Diagnosis) - 05/16/23 Discharge Disposition: Home or Self Care Attending Physician: Toi Hilton MD Allergies, Adverse Reactions, Alerts No Known Medication Allergies Assessment and Plan Future Appointments Appointment Date:05/23/2023 10:30:00 AM Scheduled Provider:Jt Hutchins [...] [Reference Range]: 1 Protein Urine Dipstick Negative (05/16/23 10:04 AM) Glucose Urine Dipstick Negative (05/16/23 10:04 AM) Urine Color Urine Dipstick Yellow (05/16/23 10:04 AM) Urine Appearance Urine Dipstick Clear (05/16/23 10:04 AM) Vital Signs Most recent to oldest [Reference Range]: 1 2 Blood Pressure [90-140/60-90 mmHg] 132/6 8mmHg (05/16/23 10:04 AM) Weight 78.5 kg (05/16/23 10:04 AM) Weight Measured (lbs) 173.063 lb (05/16/23 10:04 AM) [place] Body Weight Calculated 51.476 kg (05/16/23 10:04 AM) Pre- Weight 58.51 kg (05/16/23 10:04 AM) Cumulative Weight Gain 20 kg (05/16/23 10:04 AM) Height 159 cm (05/16/23 10:04 AM) Height/Length Measured (inches) 62.6 inc h (05/16/23 10:04 AM) BSA Measured 1.86 m2 (05/16/23 10:04 AM) Body Mass Index 31.05 kg/m2 (05/16/23 10:04 AM) 31.05 kg/m2 (05/16/23 10:04 AM) Social History Social History Type Response Smoking Status Smoking tobacco use: Former tobacco user;Never; Number used per day: stopped smoking when she found out she was .; entered on: 04/21/23 Sex Note * Beverley Mark: PERFORM Event Display: OB Note Authored Date: [id number] Transcribed Labs Entered On: 05/13/2023 16:41 EDT Performed On: 05/13/2023 16:41 EDT by Beverley Mark Transcribed Labs Blood Type, Transcribed : AB [...] triploid,monosomy x, trisomy 21,18,and 13. sex female. Beverley Mark - 05/13/2023 16:41 EDT Electronically Signed on 05/13/2023 04:41 PM Beverley Mark Physician Outpatient Note * Toi Hilton MD: PERFORM Event Display: Office Clinic Note Physician Authored Date: [id number] OLIVE SOTELO :1995 Age:27 years Sex:Female Visit Date:05/16/2023 Primary Care Physician: ANGIE JOSEPH PA-C JOEY/EGA Gestational Age (EGA) and JOEY? * Note: EGA calculated as of 05/16/2023 ?? JOEY:??06/03/2023?EGA*:??37 weeks 3 days ?Type:??Authoritative?Method Date:??08/27/2022 ?Method:??Last Menstrual [...] Entry):??19 weeks 4 days ?Type:??Non-Authoritative ?Comments:??Performed at [facility] ?Entered by:??Rosy Armenta on 02/16/2023 Chief Complaint OB follow-up History of Present Illness Doing well.?? More and more tired.?? Pump is on its way. Physical Exam Vitals & Measurements BP:??132/68?? HT:??159??cm?? WT:??78.5??kg?? BMI:??31.05?? BMI:??31.05?? BSA:??1.86?? Risk Factors Risk Factors, Antepartum Current Preg: Other: velamentous cord (05/16/23) Risk Factors, Antepartum Current Preg: Other: Marginal cord insertion. M recommended growth US at28-30 weeks and 34-36 weeks. (02/16/23) Risk Factors, Antepartum Current Preg: Other: EDS type 3 (02/16/23) Assessment/Plan 1.??Encounter for care of primigravida in third trimester, antepartum??Z34.03 No issues. Cards Exam and Notes ?? Exams and Notes ?? Date:??05/16/23 EGA:??37w3d Weight (lbs kg):??*173... Fundal Height [...] (Dil cm/Eff %/Sta -):--/--/--?? Labor S/S:??None Urine Glucose:??110 (100 mg/dl) Urine Protein:??Trace Next Visit:??+2 weeks [...] Cigarette Use: Never. 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 Home/Environment Lives with Significant other. Living situation: [...] Performed: 11/16/22 Rubella,Transcribed: Immune Electronically Signed on 05/16/23 10:23 AM Toi Hilton MD Patient Care team information Care Team Personnel Name: ANGIE JOSEPH PA-C Position: No Access Member Role: Primary Care Physician Address: Address: [place] [address]- Care Team Related Persons Name: BOGDAN HUIZAR Address: Home [address] [place] [phone] [facility] Name: BRITTANY SOTELO Address: Home [address] [place] [phone] [facility] Name: BRITTANY SOTELO Address: [address] [phone] [facility]
--- OUTSIDE RECORDS SUMMARY | 2024-03-27 13:56 | XMS_ITS | Continuity of Care Document ---
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 Post term (Discharge Diagnosis) - 06/13/23 Vacuum-assisted vaginal delivery(Discharge Diagnosis) - 06/14/23 Discharge Disposition: Home or Self Care Attending Physician: Jt Hutchins Admitting Physician: Jt Hutchins Referring Physician: ANGIE JOSEPH PA-C Allergies, Adverse Reactions, Alerts No Known Medication Allergies Assessment and Plan Future Scheduled Tests Laboratory* .GTT 3 HR OB 100gm 03/09/23 * .GTT 2 HR OB 100gm 03/09/23 * .GTT 1 HR OB 100gm 03/09/23 * .GTT Fasting OB 03/09/23 Functional Status 06/14/23 Activity Status ADL Up ad darrel Susi Care Independent 06/13/23 Assistive Device None Immunizations Given and Recorded Vaccine Date Status [...] primigravida in third trimester, antepartum Confirmed Active Vacuum-assisted vaginal delivery Confirmed Active Results Laboratory List Name Date CBC w/ Diff 06/13/23 Automated Diff 06/13/23 Most recent to oldest [Reference Range]: 1 WBC [4.8-10.8 K/mcL] 14.6 K/mcL *HI* (06/13/23 8:27 PM) RBC [4.20-5.40 Million/mcL] 4.03 Million /mcL *LOW* (06/13/23 8:27 PM) Neutro Auto [42.2-75.2 %] 81.5 % *HI* (06/13/23 8:27 PM) Lymph Auto [20.5-51.1 %] 13.2 % *LOW* (06/13/23 8:27 PM) [place] Auto [1.7-9.3 %] 4.2 % (06/13/23 8:27 PM) Basophil Auto [0.0-0.8 %] 0.3 % (06/13/23 8:27 PM) Baso Absolute [0.0-0.2 K/mcL] 0.0 K/mcL (06/13/23 8:27 PM) MCV [81.0-99.0 fL] 88.3 fL (06/13/23 8:27 PM) MCHC [32.0-36.0 g/dL] 33.1 g/dL (06/13/23 8:27 PM) Lymph Absolute [1.2-3.4 K/mcL] 1.9 K/mcL (06/13/23 8:27 PM) Hct [37.0-47.0 %] 35.6 % *LOW* (06/13/23 8:27 PM) [place] Absolute [0.1-0.6 K/mcL] 0.6 K/mcL (06/13/23 8:27 PM) MCH [27.0-31.0 pg] 29.3 pg (06/13/23 8:27 PM) Neutro Absolute [1.4-6.5 K/mcL] 11.9 K/m cL *HI* (06/13/23 8:27 PM) Hgb [12.0-16.0 g/dL] 11.8 g/dL *LOW* (06/13/23 8:27 PM) MPV [7.4-10.4 fL] 10.0 fL (06/13/23 8:27 PM) Platelets [130-400 K/mcL] 314 K/mcL (06/13/23 8:27 PM) Eos Absolute [0.0-0.2 K/mcL] 0.0 K/mcL (06/13/23 8:27 PM) RDW-CV [11.5-14.5 %] 14.7 % *HI* (06/13/23 8:27 PM) Imm Gran Absolute 0.07 *NA* (06/13/23 8:27 PM) Imm Gran Auto [0.0-0.5 %] 0.5 % (06/13/23 8:27 PM) Eos, Auto [0.00-3.00 %] 0.30 % (06/13/23 8:27 PM) Vital Signs Most recent to oldest [Reference Range]: 1 2 3 Temperature Oral [35.8-37.3 Deg C] 36.8 Deg C (06/14/23 1:15 PM) 36.7 Deg C (06/14/23 8:50 AM) Temperature Temporal Artery [36-38 Deg C] 36.6 Deg C (06/14/23 9:00 PM) 36.7 Deg C (06/14/23 3:30 AM) 36.6 Deg C (06/14/23 1:00 AM) Temperature Temporal Artery (DegF) [97.3-100 Deg F] 97.88 Deg F (06/14/23 9:00 PM) 98.06 Deg F (06/14/23 3:30 AM) 97.88 Deg F (06/14/23 1:00 AM) Temperature Temporal [36.3-37.8 Deg C] 36.7 Deg C (06/13/23 10:00 PM) Temperature Temporal (DegF) [97.3-100 Deg F] 98.06 Deg F (06/13/23 10:00 PM) Peripheral Pulse Rate [60-100 bpm] 90 bpm (06/13/23 9:00 PM) Heart Rate Monitored [60-100 bpm] 68 bpm (06/14/23 9:00 PM) 75 bpm (06/14/23 1:15 PM) 83 bpm (06/14/23 9:28 AM) Blood Pressure [90-140/60-90 mmHg] 133/72mmHg (06/15/23 1:52 PM) 122/64mmHg (06/14/23 9:00 PM) 120/74mmHg (06/14/23 1:15 PM) Mean Arterial Pressure, Cuff [65-140 mmHg] 83 mmHg (06/14/23 9:00 PM) 89 mmHg (06/14/23 1:15 PM) 77 mmHg (06/14/23 4:45 AM) Weight 80.500 kg (06/13/23 8:22 AM) Weight Dosing 80.500 kg (06/13/23 8:22 AM) Height 159.000 cm (06/13/23 8:22 AM) Height/Length Dosing 159.000 cm (06/13/23 8:22 AM) Body Mass Index 31.840 kg/m2 (06/13/23 8:22 AM) Social History Social History Type Response Smoking Status Smoking tobacco use: Former tobacco user;Never; Number used per day: stopped smoking when she found out she was .; entered on: 04/21/23 Sex Hospital Discharge Instructions Patient Education 06/15/2023 07:22:28 [facility] - Vaginal or Delivery Post Discharge Instructions (CUSTOM) [facility] POST DISCHARGE INSTRUCTIONS Going home after a Vaginal or delivery GENERAL: You have just had a baby. It is normal to feel tired and worn out over the next several weeks. Sleep is difficult to get when you have a . We recommend sleeping when your baby sleeps if possible or asking someone to watch your so you can nap. Some discomfort is expected after a vaginal delivery. Most times this discomfort can be adequately managed with rest, heat, Ibuprofen, and Tylenol. Occasionally a narcotic may be needed for breakthrough pain. If you begin to have pain that is not controlled with the medications you were sent home with or if you develop fever and chills, please give the office a call. Vaginal bleeding is normal as your uterus works on returning to its normal size. While nursing yourbaby your uterus may feel crampy and your bleeding may increase during these times. You may experience some clots that may be dime size, quarter size and fifty cent size. This is normal. If you continue to pass larger clots, and the flow is increasing over 4 hours, we recommend that you call the office. If you had a vaginal tear that required suturing these sutures will dissolve over the next three weeks. During this process you may notice some yellowish drainage that may have a foul odor. This is the suture material breaking down, and it is a normal process. Keep the tissue clean with your pericare bottle or by taking a bath. Tucks pads can also be helpful. If you have an incision on your abdomen these sutures will dissolve on their own over the next 2 to 3 weeks. There are sutures that are deeper inside that will take 3 months to dissolve. Remember that eating a diet rich in protein will help your incision heal. When showering let the water run over your incision and pat dry with a towel. You do not need to redress the wound. If it rubs against your pants and feels sore, it is fine to place a gauze pad between your incision and your clothing for cushioning. If you are your milk will come in three or four days after you have given . It is normal for your nipples to feel sore for the first couple of weeks, but it is not normal for them to bleed, crack, or feel so raw that you feel like stopping breast feeding. We have support on the OB unit and Rosy is also a business consultant in the office. They are very willing to help and provide support in any way they can. During your we talked about what your control plans would be after your delivery. Most times we can make a plan at your six week post checkup and start the plan of your choice at that time. If we know ahead of time what your plan is we can schedule you appropriately and make sure we have what we need on hand when you come for the appointment. It is normal to experience post blues. Your hormone levels change dramatically after you deliver and this can cause you to feel tired, teary eyed, sad, and overwhelmed at times. The post blues typically improve after 2-3 weeks. Post depression can settle in after that and can be very worrisome. If you feel that you cannot stop crying, do not want to see your baby, are struggling to leave your house and/or find that your mind is racing and you can't settle down, please call [facility], and we can see you to discuss depression. ACTIVITY: If you had a vaginal tear that required suturing please avoid sexual intercourse until your six week post visit. If you had no tearing we recommend that you wait to have intercourse until all of your bleeding has stopped. Keep in mind that you can get if you aren't on anything for contraception. If your baby was delivered by please avoid sexual intercourse until your six week post visit. You should also do no heavy lifting for six weeks. Any lifting that takes the strength ofboth of your arms/hands is contraindicated. If you need both hands because whatever you are liftingis cumbersome that is fine. For example, a laundry basket with a few bath towels in it. Also it is good for you to climb stairs and to go for small walks. Your blood volume doubles during . After delivery your body works on removing all of this extra fluid. You may have noticed that your legs and ankles felt pretty swollen prior to delivery. It is normal to see this swelling get worse after delivery. It gets worse if you aren't drinking enough water and/or if you are eating foods with too much sodium. Push the water and watch your salts tohelp the swelling resolve as quickly as possible. Putting your feet up and wearing 2 pairs of socksfor compression can help as well. Most post women who wish to return to work typically do so between 6 and 12 weeks. If you feel you have recovered to the point that you are ready to return to work, please call the office and let one of the secretaries know. It is usually best to discuss your return to work with your employer and pick a date for your return you both agree upon. Let us know that date and a letter will be provided that can be faxed to your employer clearing you to return to work without restriction on yourchosen date. MEDICATIONS: Continue all regularly prescribed medications unless your provider told you to stop a particular medication after your delivery. Continue taking your vitamins until your six week post visit. Ibuprofen is the best medication for your baseline pain control. Taking 600mg by mouth every four hours well help with most of your post pain. Taking it with food is best so it doesn't upset your stomach. Taking it consistently will provide you the greatest pain relief. Tylenol combined with a narcotic: You may have been sent home with a narcotic for pain control. Taking 1 or 2 tablets every 4-6 hours as needed can be helpful for pain you have that isn't covered by the Ibuprofen. We recommend trying one tablet in an attempt to get your pain at a five or less on the pain scale. If after twenty minutes your pain is still greater than a five, you may take the second tablet. There is typically 325mg of Tylenol in each tablet. Be careful not to consume more than 3000mg of Tylenol daily. Most people will find that they need narcotic containing medications sparingly and within a few days not at all. If you had a delivery you may need this medication for a few extra days. These medications are constipating, can leave you slightly sick to your stomach and don't help with inflammation. Increase fluids and fiber. You may need an over the counter stool softener such as Colace or Senna. Taper this type of medication first and then the Ibuprofen. Our office policy is that post op patients can use narcotics in addition to Ibuprofen for up to 7 days. After that, post op pain should be treated with Ibuprofen alone and no further prescriptions for narcotics will be provided. These are the two main medications that we use for post op pain management. See below for the medications that we have recommended you use when you go home. You will have to have the prescriptions filled by your pharmacy. Ibuprofen 600mg by mouth every 4 hours for baseline pain control. Percocet 5/325mg by mouth, 1 or 2 tablets every 4 to 6 hours as needed for pain. Tylenol #3 by mouth, 1 or 2 tablets every 4 to 6 hours as needed for pain. Continue taking your vitamins at least until your six week post visit. Iron sulfate 325mg twice daily - take on an empty stomach with a glass of OJ or a vitamin C tablet until gone. Colace or Senakot once or twice daily to avoid constipation. NorQD for control taken daily at the same time starting in 2 weeks. FOLLOW UP APPOINTMENT: Post appointment is on @ . If this time does not work for you, please call the office to reschedule. The number is . If you need to contact Maternity thenumber is and ask for the Maternity Department. Follow Up Care 06/13/2023 07:28:58 With:Jt Hutchins Address: [address] [place] [phone] When:Within 2 Week(s) Comments:2??weeks?? appointment Discharge instructions * [facility]: PERFORM Event Display: Discharge Instructions Authored Date: [id number] OLIVE SOTELO :1995 Age:27 years Sex:Female Visit Date:06/13/2023 Primary Care Physician: ANGIE JOSEPH PA-C Hospital Discharge Instructions We would like to thank you for allowing us to assist you with your healthcare needs. The following includes patient education materials and information regarding your injury/illness. Your Next Steps Discharge Orders Discharge Diet Instruction, Regular Discharge Follow Up Instructions, 06/15/23 8:21:00 EDT, When following are met: Feeling improved, Follow-up with Dr. Hutchins in 2 weeks . Discharge Patient Instructions, Continue vitamins. Tylenol or Motrin every 4 hours as needed for pain. Gradually increase activity. Notify doctor if temperature greater than 100.5 ??F. Nothing in vagina for 6 weeks or until bleeding stops. Contraception . Discharge Patient Instructions, Estimated date of return to work __6__ weeks. Discharge Patient Instructions, Breastfeed baby Discharge Patient Instructions, No heavy lifting for 6 weeks. Discharge Patient Instructions, No driving for 48 hours. Follow Up Appointments Follow Up with??Jt Hutchins When:??In 2 weeks Why: 2??weeks?? appointment Where: [address] [place] [phone] Medications What How Much When Instructions Next Dose New acetaminophen (acetaminophen 325 mg oral tablet) 2 tab Oral (given by mouth) Every 4 hours as needed for pain, mild New ibuprofen (ibuprofen 600 mg oral tablet) 1 tab Oral (given by mouth) Every 4 hours as needed for pain, mild Changed multivitamin, ( 19 (Nationwide) oral tablet) 1 tab Oral (given by mouth) Every day Unchanged cholecalciferol (Vitamin D3 1000 intl units oral capsule) 1 Capsules Oral (given by mouth) Every day Your Summary Your Care Team Admitting Physician - Jt Hutchins Attending Physician - Jt Hutchins Primary Care Physician - ANGIE JOSEPH PA-C Referring Physician - ANGIE JOSEPH PA-C Your Diagnosis Vacuum-assisted vaginal delivery Post term 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 Acne vulgaris Back pain Depression Dermatitis DJD (degenerative joint disease) Letitia-Danlos syndrome Encounter for care of primigravida in third trimester, antepartum Marginal insertion of umbilical cord affecting management of mother Post term Vacuum-assisted vaginal delivery Tests Performed/Pending Automated Diff CBC w/ Diff Discharge Vitals Temperature??(Temporal Artery) 97.9 ??F (36.6 ??C) Heart Rate??(Monitored) 68 Blood Pressure?? 122/64?? Allergies No Known Medication Allergies Education Materials [facility] POST DISCHARGE INSTRUCTIONS Going home after a Vaginal or delivery GENERAL: You have just had a baby. It is normal to feel tired and worn out over the next several weeks. Sleep is difficult to get when you have a . We recommend sleeping when your baby sleeps if possible or asking someone to watch your so you can nap. Some discomfort is expected after a vaginal delivery. Most times this discomfort can be adequately managed with rest, heat, Ibuprofen, and Tylenol. Occasionally a narcotic may be needed for breakthrough pain. If you begin to have pain that is not controlled with the medications you were sent home with or if you develop fever and chills, please give the office a call. Vaginal bleeding is normal as your uterus works on returning to its normal size. While nursing yourbaby your uterus may feel crampy and your bleeding may increase during these times. You may experience some clots that may be dime size, quarter size and fifty cent size. This is normal. If you continue to pass larger clots, and the flow is increasing over 4 hours, we recommend that you call the office. If you had a vaginal tear that required suturing these sutures will dissolve over the next three weeks. During this process you may notice some yellowish drainage that may have a foul odor. This is the suture material breaking down, and it is a normal process. Keep the tissue clean with your pericare bottle or by taking a bath. Tucks pads can also be helpful. If you have an incision on your abdomen these sutures will dissolve on their own over the next 2 to 3 weeks. There are sutures that are deeper inside that will take 3 months to dissolve. Remember that eating a diet rich in protein will help your incision heal. When showering let the water run over your incision and pat dry with a towel. You do not need to redress the wound. If it rubs against your pants and feels sore, it is fine to place a gauze pad between your incision and your clothing for cushioning. If you are your milk will come in three or four days after you have given . It is normal for your nipples to feel sore for the first couple of weeks, but it is not normal for them to bleed, crack, or feel so raw that you feel like stopping breast feeding. We have support on the OB unit and Rosy is also a business consultant in the office. They are very willing to help and provide support in any way they can. During your we talked about what your control plans would be after your delivery. Most times we can make a plan at your six week post checkup and start the plan of your choice at that time. If we know ahead of time what your plan is we can schedule you appropriately and make sure we have what we need on hand when you come for the appointment. It is normal to experience post blues. Your hormone levels change dramatically after you deliver and this can cause you to feel tired, teary eyed, sad, and overwhelmed at times. The post blues typically improve after 2-3 weeks. Post depression can settle in after that and can be very worrisome. If you feel that you cannot stop crying, do not want to see your baby, are struggling to leave your house and/or find that your mind is racing and you can't settle down, please call [facility], and we can see you to discuss depression. ACTIVITY: If you had a vaginal tear that required suturing please avoid sexual intercourse until your six week post visit. If you had no tearing we recommend that you wait to have intercourse until all of your bleeding has stopped. Keep in mind that you can get if you aren't on anything for contraception. If your baby was delivered by please avoid sexual intercourse until your six week post visit. You should also do no heavy lifting for six weeks. Any lifting that takes the strength ofboth of your arms/hands is contraindicated. If you need both hands because whatever you are liftingis cumbersome that is fine. For example, a laundry basket with a few bath towels in it. Also it is good for you to climb stairs and to go for small walks. Your blood volume doubles during . After delivery your body works on removing all of this extra fluid. You may have noticed that your legs and ankles felt pretty swollen prior to delivery. It is normal to see this swelling get worse after delivery. It gets worse if you aren't drinking enough water and/or if you are eating foods with too much sodium. Push the water and watch your salts tohelp the swelling resolve as quickly as possible. Putting your feet up and wearing 2 pairs of socksfor compression can help as well. Most post women who wish to return to work typically do so between 6 and 12 weeks. If you feel you have recovered to the point that you are ready to return to work, please call the office and let one of the secretaries know. It is usually best to discuss your return to work with your employer and pick a date for your return you both agree upon. Let us know that date and a letter will be provided that can be faxed to your employer clearing you to return to work without restriction on yourchosen date. MEDICATIONS: Continue all regularly prescribed medications unless your provider told you to stop a particular medication after your delivery. Continue taking your vitamins until your six week post visit. Ibuprofen is the best medication for your baseline pain control. Taking 600mg by mouth every four hours well help with most of your post pain. Taking it with food is best so it doesn't upset your stomach. Taking it consistently will provide you the greatest pain relief. Tylenol combined with a narcotic: You may have been sent home with a narcotic for pain control. Taking 1 or 2 tablets every 4-6 hours as needed can be helpful for pain you have that isn't covered by the Ibuprofen. We recommend trying one tablet in an attempt to get your pain at a five or less on the pain scale. If after twenty minutes your pain is still greater than a five, you may take the second tablet. There is typically 325mg of Tylenol in each tablet. Be careful not to consume more than 3000mg of Tylenol daily. Most people will find that they need narcotic containing medications sparingly and within a few days not at all. If you had a delivery you may need this medication for a few extra days. These medications are constipating, can leave you slightly sick to your stomach and don't help with inflammation. Increase fluids and fiber. You may need an over the counter stool softener such as Colace or Senna. Taper this type of medication first and then the Ibuprofen. Our office policy is that post op patients can use narcotics in addition to Ibuprofen for up to 7 days. After that, post op pain should be treated with Ibuprofen alone and no further prescriptions for narcotics will be provided. These are the two main medications that we use for post op pain management. See below for the medications that we have recommended you use when you go home. You will have to have the prescriptions filled by your pharmacy. Ibuprofen 600mg by mouth every 4 hours for baseline pain control. Percocet 5/325mg by mouth, 1 or 2 tablets every 4 to 6 hours as needed for pain. Tylenol #3 by mouth, 1 or 2 tablets every 4 to 6 hours as needed for pain. Continue taking your vitamins at least until your six week post visit. Iron sulfate 325mg twice daily - take on an empty stomach with a glass of OJ or a vitamin C tablet until gone. Colace or Senakot once or twice daily to avoid constipation. NorQD for control taken daily at the same time starting in 2 weeks. FOLLOW UP APPOINTMENT: Post appointment is on @ . If this time does not work for you, please call the office to reschedule. The number is . If you need to contact Maternity thenumber is and ask for the Maternity Department. Patient/Angle Bender Signature Patient Name:OLIVE SOTELO I have received this information and my questions have been answered. Patient/Angle Bender Name: Patient/Angle Bender Signature: Relationship to Patient: Witness Name/Signature: Date: Electronically Signed on: 06/15/2023 12:48 EDTSigned by:ISABELLA Obstetrics Progress note * Jt Hutchins P: PERFORM Event Display: Obstetrics Progress Note Authored Date: [id number] LVKELLIE DAILEYNE :1995 Age:27 years Sex:Female Visit Date:06/13/2023 Primary Care Physician: ANGIE JOSEPH PA-C History of Present Illness Labor Induction due to Postdates. ??She received??1 dose of Cytotec 25 mcg vaginally. Physical Exam Vitals & Measurements T:??36.6?C ??(Temporal Artery)?? HR:??82??(Monitored)?? BP:??127/79?? HT:??159.000??cm?? WT:??80.500??kg?? BMI:??31.840?? Pain Score:??0?? O2 Therapy:??Room air?? Cervix: 2-3cm/90%/-1, Vertex presentation, Intact Membranes ? Heart Monitor: Reassuring?? heart rate tracing. ??No??worrisome decelerations.?? Irregular contractions. Labor Details Baby A FHR Baseline:140 FHR Baseline Description:Normal, 110-160 bpm FHR Baseline Variability:Moderate variability Activity:Present per patient Uterine Uterine ActivityIrregular Uterine Contraction Frequency8 Uterine Contraction Monitoring MethodExternal toco Cervical Cervix Dilation2 cm Cervix [id number] Station-3 Assessment/Plan 1.??Post term ??O48.0 2.??Marginal insertion of umbilical cord affecting management of mother??O43.103 3.??Letitia-Danlos syndrome??Q79.60 Second dose of Cytotec 25 mcg placed vaginally. LMP/EGA/JOEY No qualifying data available. Gestational Age (EGA) and JOEY? * Note: EGA calculated as of 06/13/2023 ?? JOEY:??06/03/2023?EGA*:??41 weeks 3 days ?Type:??Authoritative?Method Date:??08/27/2022 ?Method:??Last Menstrual [...] Entry):??19 weeks 4 days ?Type:??Non-Authoritative ?Comments:??[place] [facility]Entered by:??Rosy Armenta on 02/16/2023 OB History History?(0,0,0,0)?No previous pregnancies history have been recorded Medications Inpatient miSOPROStol, 25 mcg= 0.25 tab, VAG, every 3 hr, PRN miSOPROStol, 50 mcg= 0.5 tab, VAG, every 3 hr, PRN oxytocin IV additive 30 units + LR Diluent 500 mL Home 19 (Nationwide) oral tablet Vitamin D3 1000 intl units oral capsule, 25 mcg= 1 cap, Oral, Daily Electronically Signed on 06/13/23 12:23 PM Jt Hutchins summary Document * Event Display: Summary Document Procedure note * Brendon Bridges: PERFORM Event Display: Procedure Note Authored Date: [id number] 06/13/2023 21:27:41 Epidural placement for labor and delivery Monitors attached and patient positioned sitting on the side of the bed at 2053. Sitting on side of bed. Sterile betadine prep and drape. 1% Lidocaine skin wheal at L2-3. #17g Touhy X1 attempt; loss of resistance technique with air. Catheter threaded up 3cm. No heme, paresthesia or CSF noted. ??Test dose: 2.5cc 1.5% Lidocaine with epi, negative. Ropiviaine 0.2% gtt started as _10__ mL/hr Electronically Signed on 06/13/23 09:31 PM Brendon Bridges Note * Jt Hutchins: PERFORM Event Display: OB Delivery Summary Authored Date: [id number] OLIVE SOTELO :1995 Age:27 years Sex:Female Visit Date:06/13/2023 Primary Care Physician: ANGIE JOSEPH PA-C Delivery Vacuum Assisted Vaginal Delivery Disposition Mother and Baby doing well. History/Labor Course 27yo , JOEY- 06/03/2023 The patient presented to OB at 41-4/7 weeks??for??scheduled Induction of Labor??due to Post dates.?? 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 Her blood type is AB Positive. ??She is Rubella Immune and GBS Negative. ??On admission, her Cervix was??2 cm / 80%/-3??with a Vertex presentation and Intact Membranes.?? She was given??2 doses of??Cytotec??25 mcg??placed vaginally.?? Her contractions increased in frequency and intensity??throughout??the day. ??At 4 cm dilation, she received an Epidural for??pain management. ??At 5 cm dilation, her?Membranes were Artificially Ruptured and clear fluid was noted.?? Her labor progressed to complete dilation.?? She pushed??for approximately??2 hours.?? The??Vacuum??was applied due to??Maternal Exhaustion. ??The?? Vertex was at a +3??station??i n the??ROL??position.?? The vacuum was applied during??4 contractions??to accomplish delivery.?? There were no pop offs.?? After delivery of??the head, the nose and??pharynx were??suctioned on the perineum prior to delivery of the shoulders. ??There was no nuchal cord.?? Delivery of the should ers??was??tight,??but the??anterior shoulder??passed under the??pubic bone??with??placement of the patient in Maria Antonia??position.?? At the completion of delivery, the cord was??clamped and cut. ??The baby was taken to the warmer for??resuscitation. ??Apgars were??7/8, and weight was 7 pounds??15 ounces. ??The placenta delivered spontaneously and was intact.?? She was given??Pitocin 10 units IM, Cytotec 1000 mcg per rectum, and??IV Pitocin. ??The uterine??fundus firmed up well. ??She had a second-degree perineal laceration that was repaired with 2-0 chromic suture. ??1% lidocaine was used for local??anesthesia. Delivery Documentation Baby A Delivery Details Delivery Type:Vaginal, vacuum assist Date, Time of :06/14/2023 03:17 EDT Delivery of Head Date, Time:06/14/2023 03:16 EDT D-EGA at Delivery:41+3 Vacuum Type:Manual pump by provider Vacuum Number of Attempts:4 Details Gender:Female Weight:4.140 kg Score 1 Minute:7 Score 5 Minute:8 Resuscitation at :Oxygen blow-by Placenta Details Placenta Delivery Date, Time:06/14/2023 03:23 EDT Placenta Delivery Method:Spontaneous Placenta to Pathology:No Maternal and Complications Maternal Delivery Complications:None Umbilical Cord Description:3 vessel cord Cord Blood Banking:No Cord Blood Sent to Lab:Yes Additional Delivery Information Presenting PartVertex Sterile Preparation, OBPerineum, Betadine Delivery ALB757 mL 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 Gestational Age (EGA) and JOEY? * Note: EGA calculated as of 06/14/2023 ?? JOEY:??06/03/2023?EGA*:??41 weeks 4 days ?Type:??Authoritative?Method Date:??08/27/2022 ?Method:??Last Menstrual [...] Entry):??19 weeks 4 days ?Type:??Non-Authoritative ?Comments:??[place] [facility]Entered by:??Rosy Armenta on 02/16/2023 Membrane Status Information Baby A ROM Date, Time:06/13/2023 23:47 EDT Membrane Status:Artificial rupture of membranes Amniotic Fluid Color/Description:Clear Premature Rupture of Membranes:No Prolonged Rupture of Membranes:No Labor Information Baby A Labor Onset Methods:Elective induction Induction Methods:Artificial rupture of membranes, Misoprostol Precipitous Labor:No Prolonged Labor:No Complete Cervical Dilation Date/Time06/14/2023 00:16 EDT OB History History?(0,0,0,0)?No previous pregnancies history have been recorded Antepartum Risk Factors Risk Factors, Antepartum Current Preg: Other: velamentous cord (05/16/23) Risk Factors, Antepartum Current Preg: Other: Marginal cord insertion. MFM recommended growth US at28-30 weeks and 34-36 weeks. (02/16/23) Risk Factors, Antepartum Current Preg: Other: EDS type 3 (02/16/23) Problem List/Past Medical History Ongoing Acne vulgaris Back pain Depression Dermatitis DJD (degenerative joint disease) Letitia-Danlos syndrome Encounter for care of primigravida in third trimester, antepartum Marginal insertion of umbilical cord affecting management of mother Post term Vacuum-assisted vaginal delivery Historical No qualifying data Medications Inpatient acetaminophen, 650 mg= 2 tab, Oral, every 4 hr, PRN ibuprofen, 600 mg= 1 tab, Oral, every 4 hr, PRN Home 19 (Nationwide) oral tablet, 1 tab, Oral, Daily Vitamin D3 1000 intl units oral capsule, 25 mcg= 1 cap, Oral, Daily Allergies No Known Medication Allergies Transcribed Labs ABO/Rh Echo: AB POS Blood [...] Performed: 11/16/22 Rubella,Transcribed: Immune Electronically Signed on 06/14/2023 05:41 PM Jt Hutchins History and physical note * Jt Hutchins: PERFORM Event Display: History and Physical Authored Date: [id number] OLIVE SOTELO :1995 Age:27 years Sex:Female Visit Date:06/13/2023 Primary Care Physician: AGNIE JOSEPH PA-C Reason for Visit OB Induction History of Present Illness 27yo , JOEY- 06/03/2023 The patient presented to OB for??scheduled Induction of Labor??due to Post dates.?? 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 Her blood type is AB Positive. ??She is Rubella Immune and GBS Negative. Review of Systems Constitutional: No fevers, chills, sweats Eye: No recent visual problems ENMT: No ear pain, nasal congestion, sore throat Respiratory: No shortness of breath, cough Cardiovascular: No chest pain, palpitations, syncope Gastrointestinal: No nausea, vomiting, diarrhea Genitourinary: No hematuria, no dysuria, no unexpected vaginal bleeding, no ??change in vaginal discharge, no pelvic pain Perez/Lymph: Negative for bruising tendency, swollen lymph glands Endocrine: Negative for excessive thirst, excessive hunger Musculoskeletal: No back pain, neck pain, joint pain, muscle pain, decreased range of motion Integumentary: No rash, pruritus, abrasions Neurologic: Alert & oriented X 4 Psychiatric: No anxiety, depression Physical Exam Vitals & Measurements T:??36.6?C ??(Temporal Artery)?? HR:??82??(Monitored)?? BP:??127/79?? HT:??159.000??cm?? WT:??80.500??kg?? BMI:??31.840?? Pain Score:??0?? O2 Therapy:??Room air?? General: Alert and oriented, well nourished, no acute distress Eye: Pupils equal, EOMI HEENT: Normocephalic, grossly normal hearing, moist oral mucosa, no scleral icterus Lungs: Clear to auscultation, non-labored respiration Heart: Normal rate, regular rhythm, no murmurs Abdomen: Nontender, gravid Musculoskeletal: Grossly normal range of motion and strength, no tenderness or swelling Skin: Skin is warm, dry, no rashes Neurologic: Awake, alert, and oriented X4, CN II-XII grossly intact Psychiatric: Cooperative, appropriate mood and affect ? Cervix: 2cm/80%/-3, Vertex presentation, Intact Membranes ? Heart Monitor: Reassuring?? heart rate tracing. 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 ??We reviewed the process with vaginal Cytotec.?? Cytotec 25 mcg placed vaginally. LMP/EGA/JOEY No qualifying data available. Gestational Age (EGA) and JOEY? * Note: EGA calculated as of 06/13/2023 ?? JOEY:??06/03/2023?EGA*:??41 weeks 3 days ?Type:??Authoritative?Method Date:??08/27/2022 ?Method:??Last Menstrual [...] Entry):??19 weeks 4 days ?Type:??Non-Authoritative ?Comments:??[place] [facility] [place]Entered by:??Rosy Armenta on 02/16/2023 OB History History?(0,0,0,0)?No previous pregnancies history have been recorded Antepartum Risk Factors Risk Factors, Antepartum Current Preg: Other: velamentous cord (05/16/23) Risk Factors, Antepartum Current Preg: Other: Marginal cord insertion. MFM recommended growth US at28-30 weeks and 34-36 weeks. (02/16/23) Risk Factors, Antepartum Current Preg: Other: EDS type 3 (02/16/23) Problem List/Past Medical History Ongoing Acne vulgaris Back pain Depression Dermatitis DJD (degenerative joint disease) Letitia-Danlos syndrome Encounter for care of primigravida in third trimester, antepartum Marginal insertion of umbilical cord affecting management of mother Post term Historical No qualifying data Medications Inpatient miSOPROStol, 25 mcg= 0.25 tab, VAG, every 3 hr, PRN miSOPROStol, 50 mcg= 0.5 tab, VAG, every 3 hr, PRN oxytocin IV additive 30 units + LR Diluent 500 mL Home 19 ([employer]ationwide) oral tablet Vitamin D3 1000 intl units oral capsule, 25 mcg= 1 cap, Oral, Daily Allergies No Known Medication Allergies Social History Alcohol Past, Beer, 1-2 times per month Electronic Cigarette/Vaping Electronic Cigarette Use: Never. 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 Home/Environment Lives with Significant other. Living situation: Home/Independent. Sexual Sexually active: Yes. Substance Use Never Tobacco Former tobacco user Tobacco Use:. stopped smoking when she found out she was . per day. Never Smokeless Tobacco use:. Family History Alive and well: Mother, Father and Brother. SVT - Supraventricular tachycardia: Brother. Immunizations Vaccine Date Status tetanus/diphth/pertuss (Tdap) adult/adol 03/09/2023 Given Transcribed Labs ABO/Rh Echo: AB POS Blood [...] Performed: 11/16/22 Rubella,Transcribed: Immune Electronically Signed on 06/13/23 12:21 PM Jt Hutchins Discharge summary * Jt Hutchins: PERFORM Event Display: Discharge Summary Authored Date: [id number] OLIVE SOTELO :1995 Age:27 years Sex:Female Visit Date:06/13/2023 Primary Care Physician: ANGIE JOSEPH PA-C History of Present Illness PPD#1 The patient is doing well status post??Vacuum Assisted Vaginal Delivery.?? She is ambulatory and tolerating regular diet.?? She is working on??breast- feeding.?? The Lochial blood flow is tapering. ??Her pain is managed with??oral Tylenol and Ibuprofen.?? She requests??to be discharged home today. Recovery and Fundal ToneFirm Fundal Height (-1) umbilicus Lochia AmountLight Lochia ColorRubra Physical Exam Vitals & Measurements T:??36.6?C ??(Temporal Artery)?? TMIN:??36.6?C ??(Temporal Artery)?? TMAX:??36.8?C ??(Oral)?? HR:??68??(Monitored)?? BP:??122/64?? Pain Score:??0?? O2 Therapy:??Room air?? GENERAL: Cooperative, alert, no acute distress. Appears pale. Not diaphoretic. HEENT: Head is normocephalic, atraumatic. PERRLA.?? HEART: Regular rate and rhythm without murmur. LUNGS: Clear to auscultation bilaterally, no wheeze, rales or rhonchi. ABDOMEN: Soft, nondistended.??Fundus is firm and palpable below the umbilicus. EXTREMITIES: No edema or tenderness. Vagina: No abnormal swelling??or??signs of infection. ??Tapering lochia rubra.?? 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 Orders: acetaminophen 325 mg oral tablet, 650 mg = 2 tab, Oral, every 4 hr, PRN pain, mild, 0 Refill(s) acetaminophen, 650 mg = 2 tab, Oral, Tab, every 4 hr, PRN pain, mild, First Dose: 06/14/23 13:07:00EDT, Routine ibuprofen, 600 mg = 1 tab, Oral, Tab, every 4 hr, PRN pain, mild, First Dose: 06/14/23 13:07:00 EDT, Routine ibuprofen 600 mg oral tablet, 600 mg = 1 tab, Oral, every 4 hr, PRN pain, mild, 0 Refill(s) Bladder Scan, 06/15/23 7:52:00 EDT, PRN, for urinary discomfort, 06/15/23 7:52:00 EDT Discharge Diet Instruction, Regular Discharge Follow Up Instructions, 06/15/23 8:21:00 EDT, When following are met: Feeling improved, Follow-up with Dr. Hutchins in 2 weeks . Discharge Patient, 06/15/23 8:21:00 EDT, Home Independently Discharge Patient Instructions, Continue vitamins. Tylenol or Motrin every 4 hours as needed for pain. Gradually increase activity. Notify doctor if temperature greater than 100.5 ??F. Nothing in vagina for 6 weeks or until bleeding stops. Contraception . Discharge Patient Instructions, No driving for 48 hours. Discharge Patient Instructions, Breastfeed baby Discharge Patient Instructions, No heavy lifting for 6 weeks. Discharge Patient Instructions, Estimated date of return to work __6__ weeks. Patient Education, 06/15/23 8:21:00 EDT, Stop date 06/15/23 8:21:00 EDT, teaching per protocol for mother and baby. Checks, 06/15/23 7:52:00 EDT, Constant order, Per protocol until discharge Discharge Home. ??Discharge teaching done. Delivery Details Baby A Delivery Type:Vaginal, vacuum assist D-EGA at Delivery:41+3 Maternal Delivery Complications:None LMP/EGA/JOEY No qualifying data available. Gestational Age (EGA) and JOEY? * Note: EGA calculated as of 06/15/2023 ?? JOEY:??06/03/2023?EGA*:??41 weeks 4 days ?Type:??Authoritative?Method Date:??08/27/2022 ?Method:??Last Menstrual [...] Entry):??19 weeks 4 days ?Type:??Non-Authoritative ?Comments:??[place] [facility] [place]Entered by:??Rosy Armenta on 02/16/2023 OB History History?(0,0,0,0)?No previous pregnancies history have been recorded Antepartum Risk Factors Risk Factors, Antepartum Current Preg: Other: velamentous cord (05/16/23) Risk Factors, Antepartum Current Preg: Other: Marginal cord insertion. MFM recommended growth US at28-30 weeks and 34-36 weeks. (02/16/23) Risk Factors, Antepartum Current Preg: Other: EDS type 3 (02/16/23) Problem List/Past Medical History Ongoing Acne vulgaris Back pain Depression Dermatitis DJD (degenerative joint disease) Letitia-Danlos syndrome Encounter for care of primigravida in third trimester, antepartum Marginal insertion of umbilical cord affecting management of mother Post term Vacuum-assisted vaginal delivery Historical No qualifying data Medications Inpatient acetaminophen, 650 mg= 2 tab, Oral, every 4 hr, PRN ibuprofen, 600 mg= 1 tab, Oral, every 4 hr, PRN Home acetaminophen 325 mg oral tablet, 650 mg= 2 tab, Oral, every 4 hr, PRN ibuprofen 600 mg oral tablet, 600 mg= 1 tab, Oral, every 4 hr, PRN 19 (Nationwide) oral tablet, 1 tab, Oral, Daily Vitamin D3 1000 intl units oral capsule, 25 mcg= 1 cap, Oral, Daily Allergies No Known Medication Allergies Electronically Signed on 06/15/23 08:24 AM Jt Hutchins Patient Care team information Care Team Personnel Name: ANGIE JOSEPH PA-C Position: No Access Member Role: Primary Care Physician Address: Address: [place] [address]- Care Team Related Persons Name: BOGDAN HUIZAR Address: [address] [phone] [facility] Name: DEEPAK, LATISHA Address: [address] [phone] Name: BRITTANY SOTELO Address: [address] [phone] [facility] Name: BRITTANY SOTELO Address: [address] [phone] [facility]
--- OUTSIDE RECORDS SUMMARY | 2024-03-27 13:56 | XMS_ITS | Continuity of Care Document ---
Author Name Unknown Organization [facility] Ambulatory [facility] Address [address] [place] [address] Care Team Providers Care Offc Spec Name Role Phone ANGIE JOSEPH PA-C Primary Care Physician Encounter [facility] [id number] Date(s): 03/09/23 - 03/09/23 [facility] [address] [place] [address]- [place] Discharge Disposition: Home Allergies, Adverse Reactions, Alerts No Known Medication Allergies Assessment and Plan Future Appointments Appointment Date:03/21/2023 01:15:00 PM Scheduled Provider:Rosy Armenta Location:[facility] Appointment Type:OB Follow Up Appointment Date:04/06/2023 10:30:00 AM Scheduled Provider:Jose Curry MD Location:[facility] Appointment Type:OB Follow Up Appointment Date:04/18/2023 10:00:00 AM Scheduled Provider:Toi Hilton MD Location:[facility] Appointment Type:OB Follow Up Appointment Date:05/03/2023 10:00:00 AM Scheduled Provider:Jt Hutchins Location:[facility] Appointment Type:OB Follow Up Future Scheduled Tests Laboratory* .GTT 3 HR OB 100gm 03/09/23 * .GTT 2 HR OB 100gm 03/09/23 * .GTT 1 HR OB 100gm 03/09/23 * .GTT Fasting OB 03/09/23 Radiology* US OB Follow Up 03/21/23 Immunizations Given and Recorded Vaccine Date Status [...] Member Role: Primary Care Physician Address: Address: [place] [address]- Care Team Related Persons Name: BOGDAN HUIZAR Address: Home [address] [place] [phone] [facility] Name: BRITTANY SOTELO Address: Home [address] [place] [phone] [place] [address] Name: BRITTANY SOTELO Address: Home [address] [place] [phone] [facility]
--- OUTSIDE RECORDS SUMMARY | 2024-03-27 13:56 | XMS_ITS | Continuity of Care Document ---
Author Name Unknown Organization [facility] Address [address] [place] [id number] Care Team Providers Care Gamma Operator Name Role Phone ANGIE JOSEPH PA-C Primary Care Physician Encounter [facility] [id number] Date(s): 04/21/23 - 04/21/[address] [id number]- [place] Discharge Disposition: Home or Self Care Attending Physician: Jose Curry MD Admitting Physician: Jose Curry MD Referring Physician: Jose Curry MD Allergies, Adverse Reactions, Alerts No Known Medication Allergies Assessment and Plan Future Appointments Appointment Date:05/03/2023 11:00:00 AM Scheduled Provider:Jt Hutchins Location:[facility] Appointment Type:OB Follow Up Appointment Date:05/09/2023 10:45:00 AM Scheduled Provider:Jt Hutchins Location:[facility] Appointment Type:OB Follow Up Appointment Date:05/16/2023 10:00:00 AM Scheduled Provider:Toi Hilton MD Location:[facility] Appointment Type:OB Follow Up Appointment Date:05/23/2023 10:30:00 AM Scheduled Provider:Jt Hutchins Location:[facility] Appointment Type:OB Follow Up Appointment Date:05/30/2023 10:15:00 AM Scheduled Provider:Toi Hilton MD Location:[facility] Appointment Type:OB Follow Up Appointment [...] Exam Date Time Procedure Performing Provider Status 04/21/23 1:31 PM US OB Follow Up DomainUser, Generated; Auth (Verified) Notes: (US OB Follow Up) Reason For Exam: Growth - Marginal cord insertion US OB Follow Up EXAM DESCRIPTION: US OB Follow Up 04/21/2023 INDICATION: GROWTH - MARGINAL CORD INSERTION TECHNIQUE: Grayscale obstetric ultrasound COMPARISON: 03/21/2023 FINDINGS: Single live intrauterine gestation in cephalic position with average ultrasound age of 33 weeks 5 days for an ultrasound JOEY of 06/04/2023. Appropriate interval growth. BPD: 33 weeks 1 day Head circumference: 34 weeks 6 days Abdominal circumference: 33 weeks 2 days Femur length: 33 weeks 4 days heart rate was 138 beats per minute DANNY is 10 cm. Posterior placenta. Placental cord insertion is approximately 2 cm from the placental edge. Estimated weight is 2205 g which is the 32nd percentile by LMP. IMPRESSION: Single live intrauterine gestation in cephalic position with average ultrasound age of 33 weeks 5 days for an ultrasound JOEY of 06/04/2023. Appropriate interval growth Marginal placental cord insertion as described previously. JOB #: [id number] Final Signed by: Jose Dsouza MD Signed (Electronic Signature): 04/21/2023 3:33 pm Social History Social History Type Response Smoking Status Smoking tobacco use: Former tobacco user;Never; Number used per day: stopped smoking when she found out she was .; entered on: 04/21/23 Sex Patient Care team information Care Team Personnel Name: ANGIE JOSEPH PA-C Position: No Access Member Role: Primary Care Physician Address: Address: [place] [address]- Care Team Related Persons Name: BOGDAN HUIZAR Address: Home [address] [place] [phone] [facility] Name: BRITTANY SOTELO Address: Home [address] [place] [phone] [facility] Name: BRITTANY SOTELO Address: [address] [phone] [facility]
--- OUTSIDE RECORDS SUMMARY | 2024-03-27 13:56 | XMS_ITS | Continuity of Care Document ---
Author Name Unknown Organization [facility] Address [address] [place] [id number] Care Team Providers Care Perioperative Manager Name Role Phone ANGIE JOSEPH PA-C Primary Care Physician Encounter [facility] [id number] Date(s): 03/09/23 - 03/09/[address] [address]- [place] Discharge Disposition: Home or Self Care Attending Physician: Rosy Armenta Admitting Physician: Rosy Armenta Referring Physician: Rosy Armenta Allergies, Adverse Reactions, Alerts No Known Medication Allergies Assessment and Plan Future Appointments Appointment Date:03/21/2023 01:15:00 PM Scheduled Provider:Rosy Armenta Location:[facility] Appointment Type:OB Follow Up Appointment Date:04/06/2023 10:30:00 AM Scheduled Provider:Jose Curry MD Location:[facility] Appointment Type:OB Follow Up Appointment Date:04/18/2023 10:00:00 AM Scheduled Provider:Toi Hilton MD Location:[facility] Appointment Type:OB Follow Up Appointment Date:05/03/2023 10:00:00 AM Scheduled Provider:Jt Hutchins Location:[facility] Appointment Type:OB Follow Up Diagnostic Tests Pending * Hepatitis B Surface Antigen 03/09/23 * HIV Ag/Ab Combo 1/2 03/09/23 Future Scheduled Tests Laboratory* .GTT 3 HR [...] disease) Confirmed Active Confirmed 08/25/22 Active Results Laboratory List Name Date Automated Diff 03/09/23 ABO/Rh Echo 03/09/23 CBC w/ Diff 03/09/23 Glucose 1Hr 50 gm OB 03/09/23 Most recent to oldest [Reference Range]: 1 WBC [4.8-10.8 K/mcL] 9.0 K/mcL (03/09/23 12:39 PM) RBC [4.20-5.40 Million/mcL] 3.67 Million /mcL *LOW* (03/09/23 12:39 PM) Neutro Auto [42.2-75.2 %] 72.7 % (03/09/23 12:39 PM) Lymph Auto [20.5-51.1 %] 21.8 % (03/09/23 12:39 PM) [place] Auto [1.7-9.3 %] 4.1 % (03/09/23 12:39 PM) Basophil Auto [0.0-0.8 %] 0.3 % (03/09/23 12:39 PM) Baso Absolute [0.0-0.2 K/mcL] 0.0 K/mcL (03/09/23 12:39 PM) MCV [81.0-99.0 fL] 95.1 fL (03/09/23 12:39 PM) MCHC [32.0-36.0 g/dL] 32.7 g/dL (03/09/23 12:39 PM) Lymph Absolute [1.2-3.4 K/mcL] 2.0 K/mcL (03/09/23 12:39 PM) Hct [37.0-47.0 %] 34.9 % *LOW* (03/09/23 12:39 PM) [place] Absolute [0.1-0.6 K/mcL] 0.4 K/mcL (03/09/23 12:39 PM) MCH [27.0-31.0 pg] 31.1 pg *HI* (03/09/23 12:39 PM) Neutro Absolute [1.4-6.5 K/mcL] 6.5 K/mc L (03/09/23 12:39 PM) Hgb [12.0-16.0 g/dL] 11.4 g/dL *LOW* (03/09/23 12:39 PM) MPV [7.4-10.4 fL] 9.4 fL (03/09/23 12:39 PM) Platelets [130-400 K/mcL] 275 K/mcL (03/09/23 12:39 PM) Eos Absolute [0.0-0.2 K/mcL] 0.1 K/mcL (03/09/23 12:39 PM) RDW-CV [11.5-14.5 %] 12.8 % (03/09/23 12:39 PM) Imm Gran Absolute 0.03 *NA* (03/09/23 12:39 PM) Imm Gran Auto [0.0-0.5 %] 0.3 % (03/09/23 12:39 PM) Slide Review Not Indicated (03/09/23 12:39 PM) ABO/Rh Echo AB POS *Unknown* (03/09/23 12:39 PM) Gluc 1hr OB 136 *NA* (03/09/23 12:39 PM) Eos, Auto [0.00-3.00 %] 0.80 % (03/09/23 12:39 PM) Social History Social History Type Response Tobacco Former tobacco user Tobacco Use:. stopped smoking when she found out she was . per day. Sex Patient Care team information Care Team Personnel Name: ANGIE JOSEPH PA-C Position: No Access Member Role: Primary Care Physician Address: Address: [address] [address] Care Team Related Persons Name: BOGDAN HUIZAR Nadine Address: Home [address] [place] [address] [place] [phone] [facility] Name: BRITTANY SOTELO Address: Home [address] [place] [address] [facility] Name: BRITTANY SOTELO Address: Home [address] [place] [address] [address] [place], [place] [phone] [facility]
--- OUTSIDE RECORDS SUMMARY | 2024-03-27 13:56 | XMS_ITS | Continuity of Care Document ---
Author Name Unknown Organization [facility] Address [address] [place] [address] Care Team Providers Care Cork Grinder Name Role Phone ANGIE JOSEPH PA-C Primary Care Physician Encounter [facility] [id number] Date(s): 03/09/23 - 03/09/23 [facility] [address] [place] [address]- [place] Discharge Disposition: Home Allergies, Adverse Reactions, Alerts No Known Medication Allergies Assessment and Plan Future Appointments Appointment Date:03/21/2023 01:15:00 PM Scheduled Provider:Rosy Armenta Location:[facility] Appointment Type:OB Follow Up Appointment Date:04/06/2023 10:30:00 AM Scheduled Provider:Jose Curry MD Location:[facility] Appointment Type:OB Follow Up Appointment Date:04/18/2023 10:00:00 AM Scheduled Provider:Toi Hilton MD Location:[facility] Appointment Type:OB Follow Up Appointment Date:05/03/2023 10:00:00 AM Scheduled Provider:Jt Hutchins Location:[facility] Appointment Type:OB Follow Up Future [...] Member Role: Primary Care Physician Address: Address: [place] [address]- Care Team Related Persons Name: BOGDAN HUIZAR Address: Home [address] [place] [phone] [facility] Name: BRITTANY SOTELO Address: Home [address] [place] [phone] [place] [address] Name: BRITTANY SOTELO Address: Home [address] [place] [phone] [facility]
--- OUTSIDE RECORDS SUMMARY | 2024-03-27 13:56 | XMS_ITS | Continuity of Care Document ---
Author Name Unknown Organization [facility] Address [address] [place] [address] Care Team Providers Care Mold Washer Name Role Phone ANGIE JOSEPH PA-C Primary Care Physician Encounter [facility] [place] [id number] Date(s): 04/06/23 - 04/06/23 [facility] [address] [place] [address]- [place] Discharge Disposition: Home Allergies, Adverse Reactions, Alerts No Known Medication Allergies Assessment and Plan Future Appointments Appointment Date:04/21/2023 02:15:00 PM Scheduled Provider:Rosy Armenta Location:[facility] Appointment Type:OB Follow Up Appointment Date:05/03/2023 11:00:00 AM Scheduled Provider:Jt Hutchins Location:[facility] Appointment Type:OB Follow Up Appointment Date:05/09/2023 10:45:00 AM Scheduled Provider:Jt Hutchins Location:[facility] Appointment Type:OB Follow Up Appointment Date:05/16/2023 10:00:00 AM Scheduled Provider:Toi Hilton MD Location:[facility] Appointment Type:OB Follow Up Appointment Date:05/23/2023 10:30:00 AM Scheduled Provider:Jt Hutchins Location:[facility] Appointment Type:OB Follow Up Appointment Date:05/30/2023 10:15:00 AM Scheduled Provider:Toi Hilton MD Location:[facility] Appointment Type:OB Follow Up Appointment Date:06/07/2023 10:30:00 AM Scheduled Provider:Jt Hutchins Location:[facility] Appointment Type:OB Follow Up Future Scheduled Tests Laboratory* .GTT 3 HR OB 100gm 03/09/23 * .GTT 2 HR OB 100gm 03/09/23 * .GTT 1 HR OB 100gm 03/09/23 * .GTT Fasting OB 03/09/23 Radiology* US OB Follow Up 04/21/23 Immunizations Given and Recorded Vaccine Date Status [...] Member Role: Primary Care Physician Address: Address: [place] [address]- Care Team Related Persons Name: BOGDAN HUIZAR Address: Home [address] [place] [phone] [facility] Name: BRITTANY SOTELO Address: Home [address] [place] [phone] [facility] Name: BRITTANY SOTELO Address: Home [address] [place] [phone] [place] [address]
--- OUTSIDE RECORDS SUMMARY | 2024-03-27 13:56 | XMS_ITS | Continuity of Care Document ---
Author Name Unknown Organization [facility] Ambulatory Clinics Address [address] [place] [address] Care Team Providers Care Claims Account Specialist Name Role Phone ANGIE JOSEPH PA-C Primary Care Physician Encounter [facility] FIN NBR [id number] Date(s): 07/28/23 - 07/28/23 [facility] [address], [place] [address] Encounter Diagnosis Encounter for visit(Discharge Diagnosis) - 07/28/23 Vacuum-assisted vaginal delivery(Discharge Diagnosis) - 07/28/23 Discharge Disposition: Home or Self Care Attending [...] 0 Refill(s) Start Date: 06/15/23 Status: Ordered norethindrone 0.35 mg oral tablet 0.35 mg = 1 tab, Oral, Daily, # 28 tab, 11 Refill(s), [facility]acy: [id number], 159, cm, :23:00 EDT, Height/Length Dosing, 80.5, kg, 06/13/23 8:23:00 EDT, Weight Dosing Start Date: 07/28/23 Status: Ordered 19 (Nationwide) oral tablet 1 [...] [Reference Range]: 1 Blood Pressure [90-140/60-90 mmHg] 110/6 2mmHg (07/28/23 10:58 AM) Mean Arterial Pressure, Cuff [65-140 mmH g] 78 mmHg (07/28/23 10:58 AM) Weight 67.2 kg (07/28/23 10:58 AM) Weight Measured (lbs) 148.15 lb (07/28/23 10:58 AM) Social History Social History Type Response Smoking Status Smoking tobacco use: Former tobacco user;Never; Number used per day: stopped smoking when she found out she was .; entered on: 04/21/23 Sex Hospital Discharge Instructions Follow Up Care 06/20/2023 15:55:54 With:Jt Hutchins MD Address: [address] [place] [phone] When:Within 1 Year(s) Comments:ACCESS TECH Well Woman Exam summary Document * Event Display: Summary Document Authored Date: [id number] OLIVE SOTELO : 1995 Age: 27 Years OLIVE SOTELO : [birth year] Summary (Date of Report: 07/01/23) G [...] weeks) By: Toi Hilton MD Labs, Tdap, [facility] set up Date: 02/16/23 15:06 (24 weeks) By: Rosy Armenta APRN Labs at mi OLIVE SOTELO : [birth year] Problems (Active Problems Only) (SNOMED CT: 854827349, Onset: 08/25/22) 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, 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) Acne vulgaris (SNOMED CT: 919875519, Onset: --) Backache (SNOMED CT: 849723152, Onset: --) Osteoarthritis (SNOMED CT: 9827364531, Onset: --) 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 [facility] recommended growth US at 28-30 weeks and 34-36 weeks., Other: EDS type 3 Ethnic Screening Self, Baby's father: Genetic Disorders Screening Baby's Father - Negative, Baby's Mother - Negative: [place]'s Chorea Baby's Mother - Negative: Maternal Metabolic [...] 4 days Type: Non-Authoritative Comments: Performed at [facility] Entered by: Rosy Armenta APRN on 02/16/2023 [...] 29 None -- -- -- 110/60 *154... *10/03... Trace Baby A = 140 *Present pe... [...] Color: Normal for ethnicity (06/14/23) Skin Description: [place] (06/13/23) Skin Temperature: Warm (06/15/23) Skin Turgor: Elastic (06/15/23) Skin Moisture General: Dry (06/15/23) Skin Integrity: Intact, no abnormalities (06/14/23) Mucous Membrane Color: [place] (06/15/23) Mucous Membrane Description: Moist, Intact (06/15/23) OLIVE SOTELO DOB: [birth year] Blood Types and Anti-D Immune Globulin Blood Type and Screen Mother ABO/Rh: -- Mother Antibody Screen: -- Father of Baby ABO/Rh: -- Father of Baby Antibody Screen: -- Anti-D Immune Globulin Rho(D) Initial Status: -- Rho(D) 28 Week Status: -- Rho(D) Dates Given: -- OLIVE SOTELO DOB: [birth year] Tests and Lab Results Results ending [...] (27 weeks) Hgb (L) 11.4 g/dL 03/09/23 ( weeks) (12.0 - 16.0) Hct (L) 34.9 % 03/09/23 ( weeks) (37.0 - 47.0) MCV 95.1 fL 03/09/23 ( weeks) (81.0 - 99.0) WBC 9.0 K/mcL 03/09/23 ( weeks) (4.8 - 10.8) RBC (L) 3.67 Million/mcL 03/09/23 ( weeks) (4.20 - 5.40) RDW-CV 12.8 % 03/09/23 ( weeks) (11.5 - 14.5) MCHC 32.7 g/dL 03/09/23 ( weeks) (32.0 - 36.0) MCH (H) 31.1 pg 03/09/23 ( weeks) (27.0 - 31.0) Baso Absolute 0.0 K/mcL 03/09/23 ( weeks) (0.0 - 0.2) Basophil Auto 0.3 % 03/09/23 ( weeks) (0.0 - 0.8) Luna Auto 4.1 % 03/09/23 ( weeks) (1.7 [...] - 3.00) Eos Absolute 0.1 K/mcL 03/09/23 (27 weeks) (0.0 - 0.2) Neutro Absolute 6.5 K/mcL 03/09/23 ( weeks) (1.4 - 6.5) Luna Absolute 0.4 K/mcL 03/09/23 (27 weeks) (0.1 - 0.6) Gluc 1hr OB [...] Urine Dipstick Negative 05/03/23 (35 weeks) Specific [place] Urine Dipstick 1.010 05/03/23 (35 weeks) Ketones [...] fL 06/13/23 (41 weeks) (81.0 - 99.0) Luna Absolute 0.6 K/mcL 06/13/23 (41 weeks) (0.1 [...] % 06/13/23 (41 weeks) (0.0 - 0.8) Luna Auto 4.2 % 06/13/23 (41 weeks) (1.7 - 9.3) Lymph Auto (L) 13.2 % 06/13/23 (41 weeks) (20.5 - 51.1) Imm Gran Auto 0.5 % 06/13/23 (41 weeks) (0.0 - 0.5) OLIVE SOTELO: [birth year] Actions No Actions have been documented. OLIVE SOTELO DOB: [birth year] Situational Awareness No comments have been documented. OLIVE SOTELO: [birth year] Allergies (Active and Proposed Allergies Only) No Known Medication Allergies (Severity: Unknown severity, Onset: Unknown) OLIVE SOTELO : [birth year] Medications Prescriptions and Home Medications Currently [...] N/A, Once Status: Completed Ordered: 06/14/23 Provider: Bita, Generated acetaminophen (Acetaminophen 325 mg Tab [LTTL]) 650 mg = 2 tab, Oral, Once Status: Completed Ordered: 06/14/23 Provider: Jt Hutchins MD Adacel (Tdap) (tetanus/diphth/pertuss (Tdap) adult/adol) 0.5 mL, IM, Once Status: Completed Ordered: 03/09/23 Provider: Toi Hilton MD benzocaine-menthol topical 1 lillian, N/A, Once Status: Completed Ordered: 06/14/23 Provider: GallitoUser, Generated ibuprofen (Ibuprofen 600 mg Tab [LTTL]) 600 mg = 1 tab, Oral, Once Status: Completed Ordered: 06/14/23 Provider: Jt Hutchins MD ibuprofen 600 mg = 1 tab, N/A, Once Status: Completed Ordered: 06/14/23 Provider: Lainer, Generated lidocaine (Lidocaine 1% Inj 20 ml Vial [LTTL]) 20 mL, Subcutaneous, Once Status: Completed Ordered: 06/14/23 Provider: Jt Hutchins MD miSOPROStol (miSOPROStol 200 mcg Tab [LTTL]) 200 mcg = 1 tab, [place], Once Status: Completed Ordered: 06/14/23 Provider: Jt Hutchins MD miSOPROStol 1,000 mcg = 5 tab, N/A, Once Status: Completed Ordered: 06/13/23 Provider: GallitoUser, Generated oxytocin (oxytocin 10 units/mL Inj 1ml Vial [LTTL]) 10 units = 1 mL, IM, Once Status: Completed Ordered: 06/14/23 Provider: Jt Hutchins MD oxytocin 10 units = 1 mL, N/A, Once Status: Completed Ordered: 06/13/23 Provider: GallitoUser, Generated oxytocin 10 units = 1 mL, N/A, Once Status: Completed Ordered: 06/14/23 Provider: GallitoUser, Generated ropivacaine 0.2% (ropivacaine) 200 mg = 100 mL, N/A, Once Status: Completed Ordered: 06/13/23 Provider: GallitoUser, Generated tranexamic acid 1,000 mg = 10 mL, 330 mL/hr, IV Piggyback, Once Status: Completed Ordered: 06/14/23 Provider: Jt Hutchins MD tranexamic acid 1,000 mg = 100 mL, N/A, Once Status: Completed Ordered: 06/14/23 Provider: Lainer, Generated naloxone (Naloxone 0.4 mg/mL Inj 1ml [...] Discontinued Ordered: 06/13/23 Provider: Brendon Bridges OLIVE SOTELO : [birth year] Immunizations tetanus/diphth/pertuss (Tdap) adult/adol 03/09/23 (25 weeks) OLIVE SOTELO: [birth year] Menstrual History Last Recorded Menstrual Period: -- Last Menstrual Period Description: -- Menarche Onset: -- Menarche Frequency: -- Menarche Length: -- Date of Menses Prior to LMP: -- On Hormonal Contracept within 2 months of LMP: -- Date of Home Test: -- Comments: -- OLIVE SOTELO: [birth year] History (0,0,0,0) No previous pregnancies history [...] Approach Age: 27 Years Date: 06/13/2023 OLIVE SOTELO : [birth year] Social & Psychosocial History Social History Alcohol Past, Beer, 1-2 times per month Employment/School 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 Home/Environment Lives with Significant other. Living situation: Home/Independent. Sexual Sexually active: Yes. Substance Abuse Never Tobacco Former tobacco user Tobacco Use:. stopped smoking when she found out she was . per day. Never Smokeless Tobacco use:. Electronic Cigarette/Vaping Electronic Cigarette Use: Never. Psychosocial History No active psychosocial history has been recorded OLIEV SOTELO: [birth year] Infection History Infection history negative or not recorded OLIVE SOTELO: [birth year] Anesthesia and Transfusions Prior Anesthesia or Transfusion Received: No prior anesthesia, No prior transfusion Prior Anesthesia Reaction(s): -- Prior Transfusion Reaction(s): -- Blood Transfusion Acceptable to Patient: -- OLIVE SOTELO: [birth year] Plan and Patient Requests Desired Delivery Location: -- Education: -- Written Plan: -- Written Plan Location: -- Support Person/Cattle Rancher Relationship to Pt: -- Oral Intake OB: -- Labor Preferences: -- Non-Medicinal Pain Relief: -- Anesthesia/Pain Medication During Labor: -- Delivery Plan: -- Feeding: -- Circumcision: -- Baby For Adoption: -- Patient Requests: -- Father of the Baby's Name: -- Donor Specialist Selected: -- Surrogate : -- Support Person's Name: -- OLIVE SOTELO : [birth year] Education Educational Materials/Leaflets Provided Title/Topic Date Provided [facility] - Vaginal or Delivery Post Discharge Instructions 06/15/23 OLIVE SOTELO: [birth year] Registration and Information Race: White Ethnicity: Not , , or Mohawk Origin Marital Status: Single Language(s): Kyrgyz Sabianist Preference(s): None/No Preference Occupation/Education: Address, Phone, and Health Plans Home Address: [address] [place] [address], [place], [place] [id number] Phone: --, , -- Health Plans: 1 - SELF PAY Member/Group: -- Deductible: $ -- Type: Self Pay Address: [address] [address], [place] [address] Phone: -- 2 - [employer] Member/Group: [id number] Deductible: $ -- Type: Commercial Address: [address] [address], [place], [place] [id number] 3 - [employer] Member/Group: [id number] Deductible: $ -- Type: Commercial Address: [address] [address], [place], [place] [id number] 4 - SELF PAY Member/Group: -- Deductible: $ -- Type: Self Pay Address: [address] [address], [place] [address] Phone: -- General Information OB Provider(s) Information: Not explicitly recorded. May be noted in encounter section below. See below for detailed information for all visits and information. Delivery Center/Hospital Information: -- [facility] Provider Information: -- Referring Provider Information: ANGIE JOSEPH PA-C Primary Provider Information: ANGIE JOSEPH PA-C /Partner Information: -- -- Support Person Information: -- Planned/Unplanned : -- Date Consent Signed for Tubal Ligation: -- Date Record Sent to Hospital: -- OLIVE SOTELO: [birth year] Visits and Encounters (Known encounters since 08/25/2022. May include lab encounters.) Date Location Provider Type Medical Service 07/28/2023 [facility] Jt Hutchins MD [facility] 07/05/2023 [facility] Jt Hutchins MD [facility] 06/13/2023 Nadine Hutchins MD Inpatient Inpatient 06/07/2023 A Jt Hutchins MD Outpatient NST 06/07/2023 T1 Jt Hutchins MD Clinic Clinic 05/30/2023 2 Toi Hilton MD Clinic Clinic 05/23/2023 T1 Jt Hutchins MD Clinic Clinic 05/16/2023 1 Toi Hilton MD Clinic Clinic 05/09/2023 [facility] Jt Hutchins MD Outpatient Lab 05/09/2023 [facility] Jt Hutchins MD Clinic Clinic 05/03/2023 [facility] Jt Hutchins MD Outpatient Lab 05/03/2023 5 Jt Hutchins MD Clinic Clinic 04/21/2023 [facility] Jose Curry MD Outpatient 04/21/2023 2 Rosy Armenta APRN Clinic Clinic 04/18/2023 [facility] Clinic [facility] 04/06/2023 [facility] -- Between Visit -- 04/06/2023 4 Jose Curry MD Clinic Clinic 03/21/2023 2 Rosy Armenta, [facility] Clinic Clinic 03/21/2023 [facility] Tio Hilton MD Outpatient 03/21/2023 [facility] Rosy Armenta, [employer] Outpatient Lab 03/09/2023 [facility]- -- Between Visit -- 03/09/2023 [facility]- -- Between Visit -- 03/09/2023 [facility] Rosy Armenta, [employer] Outpatient Lab 03/09/2023 1 Toi Hilton MD Clinic Clinic 03/09/2023 [facility]- -- Between Visit -- 02/16/2023 [facility] Rosy Armenta [employer] Outpatient Lab 02/16/2023 3 Rosy Armenta, [facility] OLIVE SOTELO DOB: [birth year] Visit / Encounter Location Information The following information represents known location and contact information for locations visitedduring [facility] Ambulatory [facility] Business Address: [address] [place] [address] Phone:[phone] [facility] Business Address: [address] [place] [address] Phone: No phone numbers found on file for location OLIVE SOTELO DOB: [birth year] Visit Diagnosis (Note: All diagnoses documented [...] Display: Office Clinic Note Physician Authored Date: [id number] OLIVE SOTELO :1995 Age:27 years Sex:Female Visit Date:07/28/2023 Primary Care Physician: ANGIE JOSEPH PA-C Chief Complaint Post appointment, vacuum assisted vaginal delivery 06/14/2023, mini pill for control, still , supplementing w/formula as needed, lochial flow has stopped, no cramping, no concerns Additional Information Last PAP: 11/16/2022: NILM, - HPV, - CT, - NG History of Present Illness 27yo 001, The patient is here today for her 6 weeks appointment. ??She had a Vacuum Assisted Vaginal Delivery??on 06/14/2023??at 41-4/7 weeks. ??Her labor was induced??due to Post dates.?? 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 She had a second-degree perineal laceration repaired at the time of delivery. ?? Since her last appointment,??she has been doing well. ??She is nursing and??using??a breast pump. They also supplement with formula.?? The baby is sleeping well.?? Her moods and emotions have beengood, and there has been plenty of help at home.?? Her lochia flow has stopped.?? Her laceration has healed. ??She complains of a hemorrhoid which may bleed on occasion.?? She would like to use the NuvaRing for control. ??Her last??Pap smear??on 12/14/2022??was??Negative for??Intraepithelial??Lesion or Malignancy. ??She was also Negative for High Risk HPV DNA. Physical Exam Vitals & Measurements BP:??110/62?? WT:??67.2??kg?? GENERAL: Cooperative, alert, no acute distress. HEENT: Head is normocephalic, atraumatic. PERRLA.?? HEART: Regular rate and rhythm without murmur. LUNGS: Clear to auscultation bilaterally, no wheeze, rales or rhonchi. ABDOMEN: Soft, nontender, nondistended. ??No palpable masses. EXTREMITIES: No edema or tenderness. PSYCHIATRIC: Cooperative, appropriate mood and affect ?? Vulva: normal external female genitalia Vagina:??No abnormal discharge or blood Uterus: normal size, shape, non tender, mobile, no prolapse Adnexa: no masses or tenderness Perineum/Anus: External hemorrhoid, not inflamed. Assessment/Plan 1.??Encounter for visit??Z39.2 Ordered: norethindrone 0.35 mg oral tablet, 0.35 mg = 1 tab, Oral, Daily, # 28 tab, 11 Refill(s), Pharmacy: [facility], 159, cm, 06/13/23 8:23:00 EDT, Height/Length Dosing, 80.5, kg, 06/13/23 8:23:00 EDT, Weight Dosing ?? 2.??Vacuum-assisted vaginal delivery??Z37.9 ?? The patient is doing very well overall. She is physically fine with a normal cardiac exam and tapering/finished lochial flow. She and the baby are bonding well and, as expected, are having mostly good days. I reviewed control options with??breast-feeding. ??Primarily progesterone only types of control are recommended.?She would like??the Minipill for now. ??When she is no longer breast-feeding, she will call??to switch to??NuvaRing. Follow Up Instructions With When Contact Information Jt Hutchins MD In 1 year [address] [place] [address] Additional Instructions: ACCESS TECH Well Woman Exam Problem List/Past Medical History Ongoing Acne vulgaris [...] 1 tab, Oral, every 4 hr, PRN norethindrone 0.35 mg oral tablet, 0.35 mg= 1 tab, Oral, Daily, 11 refills 19 (Nationwide) oral tablet, 1 tab, Oral, Daily Vitamin D3 1000 intl units oral capsule, 25 mcg= 1 cap, Oral, Daily Allergies No Known Medication Allergies Social History Alcohol Past, Beer, 1-2 times per month Electronic Cigarette/Vaping Electronic Cigarette Use: Never. 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 Home/Environment Lives with Significant other. Living [...] (Tdap) adult/adol 03/09/2023 Given Electronically Signed on 07/28/23 11:33 AM Jt Hutchins MD Patient Care team information Care Team Personnel Name: ANGIE JOSEPH PA-C Position: No Access Member Role: Primary Care Physician Address: Address: [address] Care Team Related Persons Name: CHELY HUIZAR Address: Home [address] [place] [phone] Name: BOGDAN HUIZAR Address: Home [address] [place] [phone] [facility] Name: BAYLEE SOTELO Address: [address] [phone] [facility] Name: BAYLEE SOTELO Address: [address] [phone] [facility]
--- OUTSIDE RECORDS SUMMARY | 2024-03-27 13:56 | XMS_ITS | Continuity of Care Document ---
Author Name Unknown Organization [facility] Amb[facility] Address [address] [place] [address] Care Team Providers Care Seasonal Clerk Name Role Phone ANGIE JOSEPH PA-C Primary Care Physician Encounter [facility] NBR [id number] Date(s): 03/09/23 - 03/09/23 [facility] [address] [place] [address]- Encounter Diagnosis Supervision of normal first in second trimester(Discharge Diagnosis) - 03/09/23 Marginal insertion of umbilical cord affecting management of mother(Discharge Diagnosis) - 03/09/23 Need for Tdap vaccination(Discharge Diagnosis) - 03/09/23 Discharge Disposition: Home or Self Care Attending Physician: Toi Hilton MD Allergies, Adverse Reactions, Alerts No Known Medication Allergies Assessment and Plan Future Appointments Appointment Date:03/21/2023 01:15:00 PM Scheduled Provider:Rosy Armenta Location:[facility] Appointment Type:OB Follow Up Appointment Date:04/06/2023 10:30:00 AM Scheduled Provider:Jose Curry MD Location:[facility] Appointment Type:OB Follow Up Appointment Date:04/18/2023 10:00:00 AM Scheduled Provider:Toi Hilton MD Location:[facility] Appointment Type:OB Follow Up Appointment Date:05/03/2023 10:00:00 AM Scheduled Provider:Jt Hutchins Location:[facility] Appointment Type:OB Follow Up Future Scheduled Tests [...] [Reference Range]: 1 Protein Urine Dipstick Negative (03/09/23 12:57 PM) Glucose Urine Dipstick Negative (03/09/23 12:57 PM) Urine Color Urine Dipstick Yellow (03/09/23 12:57 PM) Urine Appearance Urine Dipstick Clear (03/09/23 12:57 PM) Vital Signs Most recent to oldest [Reference Range]: 1 2 Blood Pressure [90-140/60-90 mmHg] 124/6 4mmHg (03/09/23 12:57 PM) Weight 68.9 kg (03/09/23 12:57 PM) Weight Measured (lbs) 151.898 lb (03/09/23 12:57 PM) Jennings Body Weight Calculated 51.476 kg (03/09/23 12:57 PM) Pre- Weight 58.51 kg (03/09/23 12:57 PM) Cumulative Weight Gain 10 kg (03/09/23 12:57 PM) Height 159 cm (03/09/23 12:57 PM) Height/Length Measured (inches) 62.6 inc h (03/09/23 12:57 PM) BSA Measured 1.74 m2 (03/09/23 12:57 PM) Body Mass Index 27.25 kg/m2 (03/09/23 12:57 PM) 27.25 kg/m2 (03/09/23 12:57 PM) Social History Social History Type Response Tobacco Former tobacco user Tobacco Use:. stopped smoking when she found out she was . per day. Sex Physician Outpatient Note * Toi Hilton MD: PERFORM Event Display: Office Clinic Note Physician Authored Date: [id number] OLIVE SOTELO :1995 Age:27 years Sex:Female Visit Date:03/09/2023 Primary Care Physician: ANGIE JOSEPH PA-C JOEY/EGA Gestational Age (EGA) and JOEY? * Note: EGA calculated as of 03/09/2023 ?? JOEY:??06/03/2023?EGA*:??27 weeks 5 days ?Type:??Authoritative?Method Date:??08/27/2022 ?Method:??Last Menstrual Period??(08/27/2022) ?Confirmation:??Confirmed ?Description:??-- ?Comments:??-- ?Entered by:??Deisy Ragsdale on 02/16/2023? Other JOEY Calculations for this : ?Method:??Ultrasound ?Method Date:??01/11/2023 ?JOEY:??06/03/2023 ?EGA (At Entry):??19 weeks 4 days ?Type:??Non-Authoritative ?Comments:??Performed at [facility] ?Entered by:??Rosy Armenta on 02/16/2023 Chief Complaint OB follow-up History of Present Illness Labs today.?? Active baby.?? Physical Exam Vitals & Measurements BP:??124/64?? HT:??159??cm?? WT:??68.9??kg?? BMI:??27.25?? BMI:??27.25?? BSA:??1.74?? Risk Factors Risk Factors, Antepartum Current Preg: Other: Marginal cord insertion. [facility] recommended growth US at28-30 weeks and 34-36 weeks. (02/16/23) Risk Factors, Antepartum Current Preg: Other: EDS type 3 (02/16/23) Assessment/Plan 1.??Supervision of normal first in second trimester??Z34.02 Doing well overall.?? Labs today prior to her appointment.?? Blood type/antibody screen??gathered to have on??[facility] record.?? Glucola elevated at 136-3-hour??ordered/patient aware.?? Ultrasound??for marginal insertion??scheduled.?? Kick counts??reviewed. ??Tdap today as well. Ordered: OB Follow Up, 03/09/23, Routine, Reason: marginal cord insertion- growth/DANNY check, , Transport Mode: Ambulatory, Marginal insertion of umbilical cord affecting management of mother Supervision of normal first in second trimester ?? 2.??Marginal insertion of umbilical cord affecting management of mother??O43.199 Ordered: OB Follow Up, 03/09/23, Routine, Reason: marginal cord insertion- growth/DANNY check, , Transport Mode: Ambulatory, Marginal insertion of umbilical cord affecting management of mother Supervision of normal first in second trimester ?? Need for Tdap vaccination??Z23 ?? Orders: .GTT 1 HR OB 100gm, Blood, Routine, 03/09/23, Once, Lab Collect, Abnormal glucose tolerance in , Order for future visit .GTT 2 HR OB 100gm, Blood, Routine, 03/09/23, Once, Lab Collect, Abnormal glucose tolerance in , Order for future visit .GTT 3 HR OB 100gm, Blood, Routine, 03/09/23, Once, Lab Collect, Abnormal glucose tolerance in , Order for future visit .GTT Fasting OB, Blood, Routine, 03/09/23, Once, Lab Collect, Abnormal glucose tolerance in , Order for future visit Cards Exam and Notes ?? Exams and Notes ?? Date:??03/09/23 EGA:??27w5d Weight (lbs kg):??*151... Fundal Height [...] Use: Never. 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 Home/Environment Lives with Significant other. Living [...] Performed: 11/17/22 Rubella,Transcribed: Immune Electronically Signed on 03/09/23 05:36 PM Toi Hilton MD Patient Care team information Care Team Personnel Name: ANGIE JOSEPH PA-C Position: No Access Member Role: Primary Care Physician Address: Address: [place] [address]- Care Team Related Persons Name: BOGDAN HUIZAR Address: Home [address] [place] [phone] [facility] Name: BRITTANY SOTELO Address: Home [address] [place] [phone] [place] [address] Name: BRITTANY SOTELO Address: [address] [phone] [facility]
== END 2024-03-27 13:54 | disposition home or self-care (01) ==
LOC: NCHCN 13:53
PROVIDERS: PCP Physician Assistant Medical; Visit Provider Family Medicine
DX: R39.89 Other symptoms and signs involving the genitourinary system (principal)
CPT/HCPCS: 87086